=== PATIENT | female | born 1965 | race Caucasian/White ===

== ENCOUNTER 2023-03-08 16:17 | Outpatient (CLI) | payer OTHER, SELFPAY ==
--- NOTE | ~2023-03-08 | MR_ITS ---
EXAMINATION: MR brain/brain stem wo con DATE: 03/08/2023 16:48 INDICATION: Unspecified headaches. TECHNIQUE: Magnetic resonance imaging (MRI) of the brain and brainstem was performed without intraven ous contrast. COMPARISON: None. FINDINGS: There are scattered areas of nonspecific increased T2-weighted signal intensity in the cere bral white matter, deep garcia nuclei, and jesica. There is no intracranial hemorrhage, acute infarction, or abnormal intracranial mass lesion. The ventricles are normal in size. The paranasal sinuses are c lear. The orbits are normal. The mastoid air cells are normal. IMPRESSION: 1. Moderate nonspecific cerebral white matter disease and disease of the deep garcia nuclei and jesica, w hich likely represents chronic small vessel ischemic disease. Reviewed, dictated and finalized at location A. IMPRESSION: 1. Moderate nonspecific cerebral white matter disease and disease of the deep g ray nuclei and jesica, which likely represents chronic small vessel ischemic dise ase.
== END 2023-03-08 16:18 | disposition home or self-care (01) ==
PROVIDERS: PCP Nurse Practitioner Family; Visit Provider Nurse Practitioner Family
DX: R51.9 Headache, unspecified (principal); R93.0 Abnormal findings on diagnostic imaging of skull and head, not elsewhere classified
CPT/HCPCS: 70551

== ENCOUNTER 2023-04-12 08:45 | Outpatient (CLI) | payer OTHER, SELFPAY | END 2023-04-12 08:46 | disposition home or self-care (01) | LOC: ANHAUDIO 08:46 | PROVIDERS: PCP Nurse Practitioner Family; Visit Provider Otolaryngology | DX: S06.0XAA Concussion with loss of consciousness status unknown, initial encounter (principal); X58.XXXA Exposure to other specified factors, initial encounter; H90.3 Sensorineural hearing loss, bilateral | CPT/HCPCS: 92557; 92567 ==

== ENCOUNTER 2023-08-02 11:59 | Outpatient (CLI) | payer OTHER, SELFPAY ==
--- NOTE | ~2023-08-02 | XR_ITS ---
EXAMINATION: XR lumbar spine 2-3V DATE: 08/02/2023 12:20 INDICATION: Low back pain, unspecified. TECHNIQUE: 3 views of lumbar spine were obtained. COMPARISON: None. FINDINGS: There is 3 degrees levocurvature of lumbar spine. Vertebral body heights are normal. There is mildly decreased disc height at L4-L5. There are endplate osteophytes at multiple levels. There is multilevel mild facet joint osteoarthritis. IMPRESSION: 1. Mild lumbar spondylosis. Reviewed, dictated and finalized at location E. IMPRESSION: 1. Mild lumbar spondylosis.
== END 2023-08-02 12:00 | disposition home or self-care (01) ==
PROVIDERS: PCP Nurse Practitioner Family; Visit Provider Family Medicine
DX: M47.896 Other spondylosis, lumbar region (principal)
CPT/HCPCS: 72100

== ENCOUNTER 2024-03-28 13:28 | Emergency (ER) | payer OTHER, SELFPAY ==
--- NOTE | ~2024-03-28 | CT_ITS ---
CT brain wo con Ordering provider: Katarina Nguyen PA-C History: 59 years Female with . confusion . Comparison: None. Technique: CT of the head without contrast. Radiation reduction technique utilized. FINDINGS: BRAIN PARENCHYMA AND CSF SPACES: No midline shift, mass effect or hemorrhage. The brain parenchyma a nd CSF spaces are otherwise normal. VISUALIZED PARANASAL SINUSES: Well aerated. MASTOIDS: Well aerated. BONES: The bones appear intact. SOFT TISSUES: Visualized nasopharynx is normal. Superficial soft tissues are normal. IMPRESSION: No acute intracranial findings. Reviewed, dictated and finalized at location A.
[2024-03-28 13:33] VITALS: BP 153/81; PULSE 95; RESP 17; TEMP 36.5; O2SAT 95
[2024-03-28 13:40] LABS: Glucose Point of Care 289 mg/dl (65-105)
[2024-03-28 13:47] LABS: Basophils Absolute Auto 0.1 K/mm3 (0.0-0.1); Basophils Percent Auto 0.5 % (0.2-1.2); Eosinophils Absolute Auto 0.1 K/mm3 (0-0.3); Eosinophils Percent Auto 1.1 % (0-4.4); Hematocrit 45.1 % (37.0-47.0); Hemoglobin 15.5 g/dL (12.0-15.0); Immature Granulocyte Absolute 0.02 K/mm3 (0.00-0.031); Immature Granulocyte Percent A 0.2 % (0-0.5); Lymphocytes Absolute Auto 2.65 K/mm3 (0.9-3.2); Lymphocytes Percent Auto 28.7 % (18.3-44.2); Mean Corpuscular HGB Conc 34.4 g/dl (32-36); Mean Corpuscular Hemoglobin 31.8 pg (26-34); Mean Corpuscular Volume 92.4 fl (80-100); Monocytes Absolute Auto 0.8 K/mm3 (0.1-0.6); Monocytes Percent Auto 9.1 % (2.6-8.5); Neutrophils Absolute Auto 5.6 K/mm3 (1.3-6.7); Neutrophils Percent Auto 60.4 % (45.5-73.1); Platelet Count Result 213 k/mm3 (150-375); Red Blood Count 4.88 M/mm3 (4.2-5.4); Red Cell Distribution Width 11.8 % (11.5-14.5); White Blood Count 9.2 K/mm3 (4.5-10.0)
[2024-03-28 14:13] LABS: Beta-Hydroxybutyrate/Acetoacetate 0.08 mmol/L (0.02-0.27)
[2024-03-28 14:27] LABS: Alanine Aminotransferase 48 U/L (6-35); Albumin Level 4.5 g/dL (3.5-5.1); Alkaline Phosphatase 120 U/L (38-126); Anion Gap 6 mmol/L (4-12); Aspartate Amino Transferase 46 U/L (14-36); Bilirubin,Total 0.7 mg/dL (0.2-1.3); Blood Urea Nitrogen 10 mg/dL (7-17); Calcium 9.5 mg/dL (8.4-10.2); Carbon Dioxide 25 mmol/L (22-30); Chloride 106 mmol/L (98-107); Estimated CRCL calculation 90 ml/min; Estimated Glomerular Filt Rate > 60; Glucose 287 mg/dL (65-110); Magnesium 1.8 mg/dL (1.6-2.3); Phosphorus 3.6 mg/dL (2.5-4.5); Sodium 137 mmol/L (137-145)
[2024-03-28] MEDS: SODIUM CHLORIDE 0.9% IV 1,000 ML 999 ML IV CONT (14:35)
--- NOTE | 2024-03-28 14:35 | ED.RECABL ---
HPI - Recheck/Abnormal Lab/Rx General Chief Complaint: Recheck/Abnormal Lab/Rx Stated Complaint: hyperglycemia Time Seen by Provider: 03/28/24 13:52 Source: patient Mode of arrival: ambulatory Limitations: no limitations History of Present Illness HPI narrative: This is a 59 year old female that presents to the ER for elevated blood sugars. Ongoing over the last 10 days. Reports one of her diabetic medication was stopped and she also had a GI bug last week. Her blood sugars have been as high as in the 400s. Was sent in for evaluation by her PCP. Reports she feels a little confused, which she believes is from her blood sugar being elevated. Denies fever, cough, shortness of breath, abdominal pain or dysuria. Related Data Home Medications Medication Instructions Recorded Confirmed atorvastatin 20 mg tablet 20 mg PO DAILY 03/25/23 duloxetine 60 mg capsule,delayed 60 mg PO DAILY 03/25/23 release fluoxetine 20 mg capsule 20 mg PO DAILY 03/25/23 glimepiride 2 mg tablet 2 mg PO BID 03/25/23 oxybutynin chloride 5 mg tablet 5 mg PO BID 03/25/23 propranolol 40 mg tablet 40 mg PO Q12H 03/25/23 topiramate 25 mg tablet (Topamax) 25 mg PO DAILY 03/25/23 Allergies Allergy/AdvReac Type Severity Reaction Status Date / Time morphine Allergy Unknown Headache Verified 03/28/24 13:37 Sulfa (Sulfonamide Allergy Unknown Anaphylaxis Verified 03/28/24 13:37 Antibiotics) fentanyl AdvReac Severe Anaphylaxis Verified 03/28/24 13:37 Review of Systems Review of Systems: CONSTITUTIONAL: Denies fever CARDIOVASCULAR: Denies chest pain RESPIRATORY: Denies dyspnea. GASTROINTESTINAL: Denies abdominal pain GENITOURINARY: Denies dysuria All systems reviewed & are unremarkable except as noted in HPI and below PMFSH Past Medical History Medical History (Updated 03/28/24 @ 15:38 by Katarina Nguyen PA-C) Anxiety Fall Hyperlipidemia Migraine Seizures Family History Family History (Updated 03/25/23 @ 09:18 by Judy Sterling [facility]) Sibling Alcoholism Asthma Cancer Family history of diabetes mellitus in first degree relative Depression Cerebrovascular accident Father Family history of diabetes mellitus in first degree relative Alcoholism Depression Mother Family history of lung disease Alcoholism Asthma Depression Son Depression Daughter Depression Social History Social History (Updated 03/25/23 @ 09:03 by MINDI Freeman Smoking status: Never smoker Alcohol intake: never Substance use: current Substance use type: marijuana Exam Narrative: GENERAL: Well-appearing, well-nourished, and in no acute distress. HEAD: Normocephalic, atraumatic. EYES: PERRLA and EOMI. ENT: Nares clear, no rhinorrhea or epistaxis. Mucous membranes moist. Oropharynx without tonsillar hypertrophy exudate or other lesions. Bilateral TMs pearly garcia non-bulging NECK: Supple. No adenopathy or masses. CHEST: Clear to auscultation. No respiratory distress. No wheezes rales or rhonchi HEART: Regular rate and rhythm. No murmur heard. Normal peripheral pulses. ABDOMEN: Soft, nontender, nondistended, normal active bowel sounds. EXTREMITIES: Normal range of motion. No edema. SKIN: Warm, dry, no rash. NEURO: No focal deficits. Alert and oriented x3. CN II-XII grossly intact PSYCH: Normal mood and affect Course Course Emergency Course: Patient updated on her workup and agrees with plan of care Consultations Consultation #1: spoke with patient's PCP about workup who will follow-up in clinic Date: 03/28/24 Vital Signs Vital signs: Vital Signs Temperature 97.7 F 03/28/24 13:33 Pulse Rate 95 03/28/24 13:33 Respiratory Rate 17 03/28/24 13:33 Blood Pressure 153/81 H 03/28/24 13:33 Pulse Oximetry 95 03/28/24 13:33 Oxygen Delivery Room Air 03/28/24 13:33 Temperature 97.7 F 03/28/24 13:33 Pulse Rate 82 03/28/24 15:32 Respiratory Rate 20 03/28/24 15:32 Blood Pressure 169/8
[2024-03-28 14:53] LABS: Appearance Urine Clear (Clear); Bilirubin Urine Negative (Negative); Blood Urine Negative (Negative); Color Urine Yellow (Yellow); Glucose Urine UA 3+ mg/dL (Negative); Ketones Urine Negative (Negative); Leukocyte Esterase Ur Negative LEU/UL (Negative); Nitrate Urine Negative (Negative); Protein Urine Negative (Negative)
[2024-03-28 15:00] LABS: Add Urine Microscopic? NO
[2024-03-28 15:32] VITALS: BP 169/89; PULSE 82; RESP 20; O2SAT 98
== END 2024-03-28 15:47 | disposition home or self-care (01) ==
PROVIDERS: Emergency Medicine; Emergency Provider Physician Assistant; PCP Emergency Medicine
DX: E11.65 Type 2 diabetes mellitus with hyperglycemia (principal); F41.9 Anxiety disorder, unspecified; E78.5 Hyperlipidemia, unspecified; Z79.84 Long term (current) use of oral hypoglycemic drugs; Z79.899 Other long term (current) drug therapy
CPT/HCPCS: 36415; 70450; 80053; 81003; 82010; 82948; 83735; 84100; 85025; 96360; 99284; J7030

== ENCOUNTER 2025-04-03 07:23 | Outpatient (CLI) | payer OTHER, SELFPAY ==
--- OUTSIDE RECORDS SUMMARY | 2025-04-03 07:28 | XMS_ITS | Clinical Summary ---
Author Organization [facility] Address [address], [address] [address] Phone Care Team Providers Care Director [employer] Name Role Phone Aaron Hopkins DO Unavailable [phone] Jenaro Kevin MD Primary Care Provider [phone] Medications polyethylene glycol (MIRALAX) Powder Use entire 255g bottle with 64oz of clear liquid as directed for colonoscopy prep. 255 g 0 6 Active Social History Tobacco Use Types Packs/Day Years Used Date Smoking Tobacco: Never Assessed Comments Unknown Sex and Gender Information Value Date Recorded Sex Assigned at Not on file Legal Sex Female 4:44 PM [employer] Gender Identity Not on file Sexual Orientation Not on file Plan of Treatment Health Maintenance Due Date Last Done Comments Hepatitis C Virus (HCV) Screening 1965 TdaP Immunization 1965 Hepatitis B Immunization (1 of 3 - 19+ 3-dose series) 1984 Pap Smear 1986 Cervical Cancer Screening (CCS) 1995 HPV/Cotest 1995 Colonoscopy 2010 Colorectal Cancer Screening 2010 Cologuard 2015 Immunochemical Fecal Occult Blood 2015 Mammogram 2015 Pneumococcal Immunization (5 0+ years) (1 of 1 - PCV) 2015 Zoster Immunization (1 of 2) 2015 Influenza Immunization (#1) 2024 SARS-COV-2 Immunization ( - 2023- season) 2024 Respiratory Syncytial Virus (RSV) Immunization (Adult) (1 - 1-dose 75+ series) 2040 Meningococcal Immunization (ACWY) Aged Out No longer eligible based on patient's age to complete this topic Pneumococcal Immunization Combined Aged Out No longer eligible based on patient's age to complete this topic Rotavirus Immunization Aged Out No lo nger eligible based on patient's age to complete this topic Care Teams Director [employer]iconductor Relationship Specialty Start Date End Date Jenaro Kevin MD [address] [place] [address] PCP - General Internal Medicine 07/23/16 Aaron Hopkins DO Gastroenterology 07/23/16
--- OUTSIDE RECORDS SUMMARY | 2025-04-03 07:28 | XMS_ITS | Continuity of Care Document ---
Author Organization [facility] Address [address] [place] [address] [place] [address] Phone Care Team Providers Care Software Writer Name Role Phone Taco Gavin MD Unavailable Unavailable Allergies, Adverse Reactions, Alerts Substance Reaction Status Criticality fentanyl Orthostatic hypotension(severe) Active No Information Medications Medication Instructions Dosage Effective Dates (start - stop) Status Comments Xanax 0.5 mg tablet take 1 tablet by oral route every day as needed 0.5 MG - Active PRN for anxiety, avoid driving or operate machines hydrocodone 7.5 mg-acetaminophen 325 mg tablet take 1 tablet by oral route every day as needed for pain as needed 1 tablet - Active PRN for pain, avoid driving or operate machines ofloxacin 0.3 % ear drops instill 10 drop by otic route every day into affected ear(s) 1.5 MG - Active use for 7days albuterol sulfate HFA 90 mcg/actuation aerosol inhaler inhale 1 puff by inhalation route every 4 - 6 hours as needed as needed 1 puff - Active PRN for sob Lantus Solostar U-100 Insulin 100 unit/mL (3 mL) subcutaneous pen inject by subcutaneous route as per insulin protocol 0.00 - Active 70 units SC daily glimepiride 4 mg tablet take 1 tablet by oral route 2 times every day 4 MG - Active Januvia 100 mg tablet take 1 tablet by oral route every day 100 MG - Active metformin 500 mg tablet take 1 tablet by oral route 2 times every day with morning and evening meals 500 MG - Active oxybutynin chloride ER 10 mg tablet,extended release 24 hr take 1 tablet by oral route every day 10 MG - Active Cymbalta 60 mg capsule,delayed release take 1 capsule by oral route every day 60 MG - Active Toprol XL 25 mg tablet,extended release take 1 tablet by oral route every day 25 MG - Active lisinopril 5 mg tablet take 1 tablet by oral route every day 5 MG - Active rosuvastatin 20 mg tablet take 1 tablet by oral route every day 20 MG - Active Pen Needle 29 gauge x 1/2 use with lantus pen daily - Active Procedures Procedure Date OFFICE/OUTPATIENT VISIT, EST OFFICE/OUTPATIENT VISIT, EST OFFICE/OUTPATIENT VISIT, EST OFFICE/OUTPATIENT VISIT, EST OFFICE/OUTPATIENT VISIT, EST OFFICE/OUTPATIENT VISIT, EST OFFICE/OUTPATIENT VISIT, EST OFFICE/OUTPATIENT VISIT, EST OFFICE/OUTPATIENT VISIT, EST OFFICE/OUTPATIENT VISIT, EST OFFICE/OUTPATIENT VISIT, EST OFFICE/OUTPATIENT VISIT, EST OFFICE/OUTPATIENT VISIT, EST OFFICE/OUTPATIENT VISIT, EST OFFICE/OUTPATIENT VISIT, EST OFFICE/OUTPATIENT VISIT, EST OFFICE/OUTPATIENT VISIT, EST OFFICE/OUTPATIENT VISIT, EST OFFICE/OUTPATIENT VISIT, EST Advance Directives Directive Yes / No Effective Date File Name No Information Encounters Encounter Description Practice Location Reason(s) For Visit Diagnoses Date Provider Providers Copied on Encounter OFFICE/OUTPA TIENT VISIT, EST [facility], [facility] [address] [place], [id number], tel:[phone] [facility] pain (chief complaint) anxiety1 (chief complaint) aortic stenosis1 (chief complaint) ear pain1 (chief complaint) FibromyalgiaGeneral ized Anxiety DisorderNonrheumati c aortic (valve) stenosisDiffuse otitis externa, right ear [place]- 5 Romaine España. [address], [place], [place], [address] , [place]. tel:[phone] OFFICE/OUTPA TIENT VISIT, [facility], [address], [place], [place], [address], [place] tel:[phone] [facility] pain (chief complaint) anxiety1 (chief complaint) sob1 (chief complaint) DM (chief complaint) Nonrheumatic aortic (valve) stenosisGeneralized Anxiety DisorderType 2 diabetes mellitus without complicationsFibrom yalgia February- 5 Romaine España. [address], [place], [place], [address] , [place]. tel:[phone] OFFICE/OUTPA TIENT VISIT, [facility], [address], [place], [place], [address], [place] tel:[phone] [facility] DM (chief complaint) anxiety1 (chief complaint) pain (chief complaint) sob (chief complaint) FibromyalgiaGeneral ized Anxiety DisorderType 2 diabetes mellitus without complicationsShortn ess of breathCardiac murmurMixed incontinence Jan-0 5 Romaine Gudino [address], [place], [place], [address] , [place]. tel:[phone] OFFICE/OUTPA TIENT VISIT, [facility], [address] [place], [address], [place] tel:[phone] [facility] DM (chief complaint) HLP (chief complaint) LFT (chief complaint) HH (chief complaint) Type 2 diabetes mellitus without complicationsFibrom yalgiaGeneralized Anxiety DisorderMixed hyperlipidemiaHashi pradeep's thyroiditisFatty liverSecondary polycythemia Dec- 5 Romaine España. [address], [place], [place], [address] , [place]. tel:[phone] OFFICE/OUTPA TIENT VISIT, [facility], [address], [place], [place], [address], [place] tel:[phone] [facility] anxiety1 (chief complaint) pain (chief complaint) OAB (chief complaint) DM (chief complaint) weight loss1 (chief complaint) Type 2 diabetes mellitus without complicationsFibrom yalgiaOveractive bladderGeneralized Anxiety DisorderAbnormal weight loss 5 Romaine España. [address], [place], [place], [address] , [place]. tel:[phone] OFFICE/OUTPA TIENT VISIT, [facility], [address], [place], [place], [address], [place] tel:[phone] [facility] COVID1 (chief complaint) Viral infection 5 Romaine España. [address], [place], [place], [address] , [place]. tel:[phone] OFFICE/OUTPA TIENT VISIT, [facility], [address], [place], [place], [address], [place] tel:[phone] [facility] anxiety1 (chief complaint) pain (chief complaint) DM (chief complaint) FibromyalgiaGeneral ized Anxiety DisorderType 2 [address] complicationsEncoun ter for oth screening for malignant neoplasm of breast 5 Romaine España. [address], [place], [place], [address] , [place]. tel:[phone] OFFICE/OUTPA TIENT VISIT, [facility], [address], [place], [place], [address], [place] tel:[phone] [facility] anxiety1 (chief complaint) DM (chief complaint) pain (chief complaint) OAB (chief complaint) Generalized Anxiety DisorderOveractive bladderFibromyalgia Type 2 diabetes mellitus without complications 4 Romaine España. [address], [place], [place], [address] , [place]. tel:[phone] OFFICE/OUTPA TIENT VISIT, [facility], [address], [place], [place], [address], [place] tel:[phone] [facility] anxiety1 (chief complaint) pain (chief complaint) dyspnea1 (chief complaint) Generalized Anxiety DisorderFibromyalgi aDyspneaChest pain 4 Gavin Taco. [address], [place], [place], [address] , [place]. tel:[phone] OFFICE/OUTPA TIENT VISIT, [facility], [address], [place], [place], [address], [place] tel:[phone] [facility] anxiety1 (chief complaint) fibromyalg ia1 (chief complaint) FibromyalgiaGeneral ized Anxiety Disorder 4 Gavin Taco. [address], [place], [place], [address] , [place]. tel:[phone] OFFICE/OUTPA TIENT VISIT, [facility], [address] [place], [address], tel:[phone] [facility] anxiety1 (chief complaint) pain (chief complaint) OAB1 (chief complaint) chest pain1 (chief complaint) DM (chief complaint) DyspneaChest painOveractive bladderGeneralized Anxiety DisorderFibromyalgi aType 2 diabetes mellitus without complications 4 Gavin Taco. [address], [place], [place], [address] , [place]. tel:[phone] OFFICE/OUTPA TIENT VISIT, [facility], [address] [place], [address], [place] tel:[phone] [facility] pain (chief complaint) anxiety1 (chief complaint) DM (chief complaint) FibromyalgiaGeneral ized Anxiety DisorderType 2 diabetes mellitus without complicationsCardia c murmurOther specified disorder of bone density 4 Gavin Taco. [address], [place], [place], [address] , [place]. tel:[phone] OFFICE/OUTPA TIENT VISIT, [facility], [address] [place], [address], [place] tel:[phone] [facility] DM (chief complaint) HTN (chief complaint) HLP (chief complaint) pain (chief complaint) anxiety1 (chief complaint) Generalized Anxiety DisorderFibromyalgi aEssential (primary) hypertensionType 2 diabetes mellitus without complicationsMixed hyperlipidemiaHashi pradeep's thyroiditis 4 Romaine España. [address], [place], [place], [address] , [place]. tel:[phone] [facility], [address], [place], [place], [address], [place] tel:[phone] [facility] No Information 4 Romaine España. [address], [place], [place], [address] , [place]. tel:[phone] OFFICE/OUTPA TIENT VISIT, [facility], [address], [place], [place], [address], [place] tel:[phone] [facility] pain (chief complaint) anxiety1 (chief complaint) DM (chief complaint) HTN (chief complaint) Type 2 diabetes mellitus without complicationsEssent ial (primary) hypertensionFibromy algiaGeneralized Anxiety DisorderEncounter for screening for malignant neoplasm of colon 4 Romaine España. [address], [place], [place], [address] , [place]. tel:[phone] OFFICE/OUTPA TIENT VISIT, [facility], [address], [place], [place], [address], [place] tel:[phone] [facility] DM (chief complaint) HLP (chief complaint) liver1 (chief complaint) polycythem ia1 (chief complaint) Fatty liverMixed hyperlipidemiaType 2 diabetes mellitus without complicationsSecond marcia polycythemiaHypothy roidism 4 Romaine España. [address], [place], [place], [address] , [place]. tel:[phone] OFFICE/OUTPA TIENT VISIT, [facility], [address], [place], [place], [address], [place] tel:[phone] [facility] DM (chief complaint) HLP (chief complaint) thyroid1 (chief complaint) pain (chief complaint) anxiety1 (chief complaint) FibromyalgiaMixed hyperlipidemiaType 2 diabetes mellitus without complicationsHypoth yroidismGeneralized Anxiety DisorderLiver diseaseOther specified disorder of bone density 4 Romaine España. [address], [place], [place], [address] , [place]. tel:[phone] OFFICE/OUTPA TIENT VISIT, EST [facility], [address], [place], [address], [place] tel:[phone] [facility] DM (chief complaint) HLP (chief complaint) back pain1 (chief complaint) FibromyalgiaMixed hyperlipidemiaType 2 diabetes mellitus without complications 4 Romaine España. [address], [place], [place], [address] , [place]. tel:[phone] OFFICE/OUTPA TIENT VISIT, EST [facility], [address], [place], [address], [place] tel:[phone] [facility] liver1 (chief complaint) HLP (chief complaint) thyroid1 (chief complaint) DM (chief complaint) back pain1 (chief complaint) Fatty liverMixed hyperlipidemiaType 2 diabetes mellitus without complicationsHypoth yroidismFibromyalgi a 4 Romaine España. [address], [place], [place], [address] , [place]. tel:[phone] OFFICE/OUTPA TIENT VISIT, EST [facility], [address] [place], [address], [place] tel:[phone] [facility] HLP (chief complaint) DM (chief complaint) OAB (chief complaint) anxiety1 (chief complaint) fibromyalg ia1 (chief complaint) FibromyalgiaMixed hyperlipidemiaType 2 diabetes mellitus without complicationsGenera lized Anxiety DisorderOveractive bladder 4 Romaine España. [address], [place], [place], [address] , [place]. tel:[phone] Family History Family Member Type Diagnosis Age At Onset Father Problem of fire accident Mother Problem Coronary artery disease (Cau se Of ) 75 Brother Problem of neck and throat [place] 6 4 Sister Problem Stroke (Cause Of ) 64 Payers Payer name Insurance type Covered libertarian ID Jordi alberts(s) [facility] [id number] Social History Type Description Quantity Date Captured Comments Alcohol Use Details Caffeine Use Details Unknown Tobacco Use Status Current non-smoker Smoking Status Never smoker Sex Female Vital Signs Date / Time: Height Weight BMI Pulse Rate Blood Pressure Temperature Respiratory Rate Body Surface Area Head Circumference BMI percentile Pulse Ox Inhaled Ox 4:29 PM 61.00 in 190.40 lbs 35.9 8 kg/m eter (2) 81 /min 110/70 mm[Hg] 97.9 F 16 /min Chief Complaint And Reason For Visit From encounter dated '03/21/2025 16:26'. pain (chief complaint). Description: Pt has chronic low back pain with sciatica and some upper leg numbness and tingling Pt had x ray done which showed DDD. Pt also has fibromyalgia. Pt takes norco PRN for pain Pt failed neurontin and lyrica. Pt is on cymbalta which helps anxiety1 (chief complaint). Description: Pt has chronic anxiety and depression Pt takes cymbalta and xanax PRn and doing ok Pt denies any suicidal or homicidal thought. Pt denies any crying spells aortic stenosis1 (chief complaint). Description: Pt has severe aortic stenosis with frequent sob orfatigue. Pt has loud murmur Pt feels very exhausted all the time ear pain1 (chief complaint). Description: Pt has right ear pain for several days Pt denies any hearing loss or drainage. Pt denies any sinus symptoms Plan Of Treatment Date Type Action Status Referral Ordered: Cardiothoracic Surgery (related to Nonrheumatic aortic (valve) stenosis) ordered Referral Ordered: Referrals: Cardiothoracic Surgery. Evaluate and treat ordered Referral Referred To: Margarito Retana [address] [place] [address], [phone] Ordered: Referrals: Margarito Retana. Evaluate and treat ordered Referral Ordered: Kannan Mace -[facility] : Internal Medicine (related to Type 2 diabetes mellitus without complications) ordered Referral Referred To: Kannan Mace [address] [place], [phone] Ordered: Referrals: [facility]opathic [facility] Osteopathic Physicians : Internal Medicine. Kannan Mace. Evaluate and treat ordered Referral Ordered: US THYROID ordered Referral Ordered: MAMMOGRAM, SCREENING ordered Referral Ordered: Urology (related to Overactive bladder) ordered Referral Ordered: MANUEL ZELAYA -[facility] : Internal Medicine : Pulmonary Disease (related to Dyspnea) ordered Referral Ordered: Referrals: Urology. Evaluate and treat ordered Referral Referred To: MANUEL ZELAYA [facility] [address] [place], [place], [phone] Ordered: Referrals: Allopathic & Osteopathic Physicians : Internal Medicine : Pulmonary Disease. MANUEL ZELAYA. Evaluate and treat ordered Referral Ordered: DXA BONE DENSITY, AXIAL ordered Appointment Paris Cardenas BOOKED History Of Present Illness Encounter Date Complaint History Of Prese nt Illness pain Pt has chronic l ow back pain with sciatica and some upper leg numbness and tingling Pt had x ray done which showed DDD. Pt also has fibromyalgia. Pt takes norco PRN for pain Pt failed neurontin and lyrica. Pt is on cymbalta which helps anxiety1 Pt has chronic a nxiety and depression Pt takes cymbalta and xanax PRn and doing ok Pt denies any suicidal or homicidal thought. Pt denies any crying spells aortic stenosis1 Pt has severe a ortic stenosis with frequent sob or fatigue. Pt has loud murmur Pt feels very exhausted all the time ear pain1 Pt has right ear pain for several days Pt denies any hearing loss or drainage. Pt denies any sinus symptoms pain Pt has chronic l ow back pain with sciatica and some upper leg numbness and tingling Pt had x ray done which showed DDD. Pt also has fibromyalgia. Pt takes norco PRN for pain Pt failed neurontin and lyrica. Pt is on cymbalta which helps anxiety1 Pt has chronic a nxiety and depression Pt takes cymbalta and xanax PRn and doing ok Pt denies any suicidal or homicidal thought. Pt denies any crying spells sob1 Pt has frequent sob. Pt is seeing pulmonary and she had negative PFT. She will do asthma testing by pulmonary Pt also has dorian with Dr. retana in two weeks. Pt denies any chest pain Pt denies any acute sob Pt uses albuterol PRn Pt has severe aortic stenosis DM Pt has DM Pt is on metformin, januvia and amaryl and lantus 70 units and her glucose is still DM Pt has DM Pt is on metformin, januvia and amaryl and lantus 50 units and her glucose is still around 250-300. Pt feels fatigue. Pt states that endo could not get her in until June anxiety1 Pt has chronic a nxiety and depression Pt takes cymbalta and xanax PRn and doing ok Pt denies any suicidal or homicidal thought. Pt denies any crying spells pain Pt has chronic l ow back pain with sciatica and some upper leg numbness and tingling Pt had x ray done which showed DDD. Pt also has fibromyalgia. Pt takes norco PRN for pain Pt failed neurontin and lyrica. Pt is on cymbalta which helps sob Pt c/o intermitt ent sob Pt denies any chest pain Pt is seeing pulmonary and she supposes to do PFT but she never did. Pt could not get into her pulmonary until June. Pt is seeing cardiology and she has chronic cardiac murmur. Pt had negative stress test and echo and her cardiology repeated another echo recently which showed some abnormality and she supposes to do cardiac cath but her cardiology no longer takes her insurance Pt denies any chest pain DM pt has DM Pt griffin es metformin, januvia and amaryl and lantus 40 units and her glucose is still over 200 and her A1c is 12.9 .Pt states that sometimes her glucose is over 400. HLP Pt is on crestor Pt has mildly high TG LFT Pt has fatty hima er. Pt denies any abd pain or jaundice. HH Pt has polycythe sanna .Her iron is ok. OAB Pt has oAB Pt is on oxybutynin and doing ok Pt needs it refilled DM Pt has DM Pt is on lantus 40 units and her glucose is down to 110s. weight loss1 Pt has been inte ntionally losing weight with diet and exercise. Pt maría any Gi issue anxiety1 Pt has chronic a nxiety and depression Pt takes cymbalta and xanax PRn and doing ok Pt denies any suicidal or homicidal thought. Pt denies any crying spells pain Pt has chronic l ow back pain with sciatica and some upper leg numbness and tingling Pt had x ray done which showed DDD. Pt also has fibromyalgia. Pt takes norco PRN for pain Pt failed neurontin and lyrica. Pt is on cymbalta which helps COVID1 Pt c/o acute dry cough, sinus congestion, mild sob, overall fatigue, myalgia x 3 days .Pt went to ER last night and tested positive for COVID Pt had negative chest x ray per patient while at ER Pt denies any fever pt overall feels very malaise Pt received original COVID vaccine but no boosters anxiety1 Pt has chronic a nxiety and depression Pt takes cymbalta and xanax PRn and doing ok Pt denies any suicidal or homicidal thought. Pt denies any crying spells DM Pt has DM Pt griffin es metformin, januvia and amaryl and lantus and her glucose is down to 200. Pt is on lantus 30 units now. Pt feels better pain Pt has chronic l ow back pain with sciatica and some upper leg numbness and tingling Pt had x ray done which showed DDD. Pt also has fibromyalgia. Pt takes norco PRN for pain Pt failed neurontin and lyrica. Pt is on cymbalta which helps OAB pt has OAB with incontinence .Pt is on oxybutynin Pt needs supply order and she has dorian with urology in October pain Pt has chronic l ow back pain with sciatica and some upper leg numbness and tingling Pt had x ray done which showed DDD. Pt also has fibromyalgia. Pt takes norco PRN for pain Pt failed neurontin and lyrica. Pt is on cymbalta which helps DM Pt has DM pt is on metformin, januvia and amaryl and lantus. Pt has been under a lot of stress and her glucose is on average around 400 for the past two weeks. pt feels slightly dizzy and fatigue anxiety1 Pt has chronic a nxiety and depression Pt takes cymbalta and xanax PRn and doing ok Pt denies any suicidal or homicidal thought. Pt denies any crying spells anxiety1 Pt has chronic a nxiety and depression Pt takes cymbalta and xanax PRn and doing ok Pt denies any suicidal or homicidal thought. Pt denies any crying spells pain Pt has chronic l ow back pain with sciatica and some upper leg numbness and tingling Pt had x ray done which showed DDD. Pt also has fibromyalgia. Pt takes norco PRN for pain Pt failed neurontin and lyrica. Pt states that her pain is getting worse dyspnea1 Pt has mild exer tional dyspnea and chest pain .Pt had negative stress test and echo and she will do cardiac cath soon and she also has dorian with pulmonary tomorrow Pt denies any acute sob or chest pain anxiety1 Pt has chronic a nxiety and depression Pt takes cymbalta and xanax PRn and doing ok Pt denies any suicidal or homicidal thought. Pt denies any crying spells fibromyalgia1 Pt has fibromyal daniela .Pt is on norco higher dose which is helping Pt also started cymbalta which is helping as well DM Pt has DM Pt griffin es lantus, metformin amaryl, Januvia and her glucose is around 120s. chest pain1 Pt has frequent chest pain and sob. Pt is seeing cardiology and she had negative echo and she will do stress test soon Pt is on toprol now hot tam[employer] worker recommended her to see pulmonary ,Pt does feel exertional sob frequently. Pt denies any cough OAB1 Pt has OAB and u rine incontinence Pt is on oxybutynin Pt wants to see urology. pain Pt has chronic l ow back pain with sciatica and some upper leg numbness and tingling Pt had x ray done which showed DDD. Pt also has fibromyalgia. Pt takes norco PRN for pain Pt failed neurontin and lyrica. Pt states that her pain is getting worse anxiety1 Pt has chronic a nxiety Pt feels depressed lately Pt denies any suicidal or homicidal thought .Pt denies any crying spells. Pt takes xanax only pain Pt has chronic l ow back pain with sciatica and some upper leg numbness and tingling Pt had x ray done which showed DDD. Pt also has fibromyalgia. Pt takes norco PRN for pain Pt failed neurontin and lyrica. anxiety1 Pt has chronic a nxiety Pt denies any depression or any suicidal or homicidal thought Pt denies any crying spells Pt takes xanax PRN only. Pt failed SSRIs Pt recently went to ER due to panic attacks with chest pain Pt states that she just had a panic attacks and she calmed down and chest pain resolved and she left hospital AMA Pt denies any recurrent chest pain DM Pt has DM. Pt is on lantus 15 units daily and her glucose is around 100. Pt denies any hypoglycemia HLP Pt has HLP Pt is on crestor .Her TG is high. Pt denies any myalgia HTN Pt takes lisinop ril and her bp is stable DM Pt has DM. Pt is on metformin, amaryl and Januvia and she started lantus 10 units and her glucose is down to 200 pain Pt has chronic l ow back pain with sciatica and some upper leg numbness and tingling Pt had x ray done which showed DDD. Pt also has fibromyalgia. Pt takes norco PRN for pain Pt failed neurontin and lyrica. anxiety1 Pt has chronic a nxiety Pt denies any depression or any suicidal or homicidal thought Pt denies any crying spells Pt takes xanax PRN only. Pt failed SSRIs HTN Pt has mild HTN Pt denies any chest pain or headache pain Pt has chronic l ow back pain with sciatica and some upper leg numbness and tingling Pt had x ray done which showed DDD. Pt also has fibromyalgia. Pt takes norco PRN for pain Pt failed neurontin and lyrica. anxiety1 Pt has chronic a nxiety Pt denies any depression or any suicidal or homicidal thought Pt denies any crying spells Pt takes xanax PRN only. Pt failed SSRIs DM Pt has DM, which is poorly controlled Pt is on metformin, januvia and amaryl her A1c is 9.4 and her glucose was close to 400 recently. Pt was evaluated in ER 3 days ago and her glucose was 287 without any signs of DKA. Her head CT was normal. Pt did have mild Gi viral symptoms and was vomiting which resolved now. Pt denies any abd pain. She could not tolerate trulicity due to diarrhea. She currently feels ok. Pt denies any confusion, headache, vision change, polyuria ,polydipsia. HLP Pt has HLP ,Pt i s on crestor .Pt denies any myalgia. her TC improved but TG is worse. Pt is not on any DM diet polycythemia1 Pt has mild poly cythemia. Her iron and ferritin is pending DM Pt has poorly co ntrolled DM. She takes metformin, januvia and amaryl and her glucose was over 400 on lab and she states that she is having some acute nausea, vomiting, diarrhea and she has been vomiting out her DM pills and her glucose has been around 400 as well at home during the last several days Pt feels slight headache with dizziness and blurred vision. Pt denies any chest pain. liver1 Pt told me she h as fatty liver Pt denies any abd pain or jaundice. anxiety1 Pt has chronic a nxiety Pt denies any depression or any suicidal or homicidal thought Pt denies any crying spells Pt takes xanax PRN only pain Pt has chronic l ow back pain with sciatica and some upper leg numbness and tingling Pt had x ray done which showed DDD. Pt also has fibromyalgia. Pt takes norco PRN for pain Pt failed neurontin and lyrica. thyroid1 Pt has low thyro id Pt denies any dysphagia or neck pain . HLP Pt has HLP Pt zach davis Pt denies any myalgia DM Pt has DM pt griffin es metformin, januvia and amaryl ad her glucose is around 250s. Pt denies any polyuria polydipsia. Pt has been having persist diarrhea with trulicity. back pain1 Pt has chronic l ow back pain with sciatica and some upper leg numbness and tingling Pt had x ray done which showed DDD Pt never had MRI done Pt told me she had CT of L spine done early this year at [facility] but i can not find it. Pt could not order picker norco last month for unknown reason from pharmacy. Pt also has fibromyalgia HLP Pt has not picke d up crestor yet. It needs to be approved which is done. Pt will order picker crestor today DM Pt is on metform in, amaryl and januvia and her glucose is still high. Pt states that trulicity caused her to have severe diarrhea. Pt states that her glucose is around 180s. Pt denies any polyuria, polydipsia. back pain1 Pt has chronic l ow back pain with sciatica and some upper leg numbness and tingling Pt had MRi done which showed DDD Pt takes norco PRn for pain . liver1 Pt has elevated LFT .Pt told me she has diagnosis of fatty liver. Pt denies any abd pain or jaundice. HLP Pt is on lipitor and her lipid profile is still high Pt denies any myalgia thyroid1 Pt has mildly lo w thyroid Pt denies any dysphagia or neck pain DM Pt is on metform in, januvia and amaryl and her A1c is 9.3.. She states that her glucose is around 200-250. Pt denies any neuropathy symptoms HLP Pt has HLP Pt ta kes lipitor Pt denies any myalgia. DM Pt has DM Pt griffin es metformin and januvia and amaryl and her glucose is around 200. Pt denies any hypoglycemia. Pt denies any polyuria, polydipsia. OAB Pt has OAB Pt ta kes oxybutynin and doing ok. anxiety1 Pt has chronic a nxiety Pt denies any depression or any suicidal or homicidal thought Pt denies any crying spells Pt takes xanax 0.5 mg PRN. fibromyalgia Pt has fibromyal daniela and she has chronic low back and hip and leg pain and neuropathy. Pt takes norco PRN for pain. Pt failed neurontin and lyrica. Pt denies any loss of bowel or bladder control or saddle area paresthesia Instructions Date Instruction Additional Infor erasmo No Information Assessments Type Assessment Date assessment Fibromyalgia assessment Generalized Anxiety Disorder Mar assessment Nonrheumatic aortic (valve) sten osis assessment Diffuse otitis externa, right ea r Mental Status Date Cognitive Assessment Orientation - [place] ed to time, place, person, situation.
--- OUTSIDE RECORDS SUMMARY | 2025-04-03 07:29 | XMS_ITS | Data Portability ---
Author Organization [place] - [facility], Main Office Address [address] [place] [address] Assessment Encounter Date Assessment Date Assessment LastModified by Organization Details LastModified Time 08/24/2024 08/24/2024 Assessment: Cough Dyspnea Severe Plan: The following were reviewed and explained to the patient: primary care/referral note Myocardial perfusion test 07/31/24 EF 55%, no ischemia Limited 2-D echocardiogram 08/02/24 severe Cough/Dyspnea workup will be done as follows: Respiratory allergen panel for [facility] Serum IgE Serum total IgG, IgG1, IgG2, IgG3, IgG4 Stmya-3-tledugzcjt n phenotype and level TB stimulated gamma interferon B-type natriuretic peptide (BNP) Eosinophil count Complete pulmonary function testing (PFT) Advised to continue not to smoke. Adherence to therapy is advocated. Nonadherence may lead to treatment failure, further progression of the condition, and other complications. Hospitals admissions are often the result of individuals not taking prescription medications accurately. Alternatively, greater adherence to medication regimens have shown to lower rates of hospitalization and decrease total medical costs in patients with chronic medical conditions. Advocated influenza vaccination annually and pneumonia vaccination MARCE. Advocated weight loss through diet and exercise. Patient's ideal body weight according to height and gender is up to 115 lbs. Encouraged patient to adjust caloric intake to maintain/achieve ideal body weight, emphasizing on fruits, vegetables, whole grains, and fat-free or low-fat products. These include lean meats, poultry, fish, beans, eggs, and nuts and foods that are low in saturated fats, trans-fats, cholesterol, salt (sodium), and glycemic index. Stressed the importance of regular exercise up to the patient's capacity limits. In this case, we recommend 20 min daily walking, 2 days a week of resistance training. Patient to monitor BP daily and bring records to PCP for further management. Follow-up: 1 week after PFT Not available 08/24/2024 14:01:24 02/14/2025 02/14/2025 Assessment: Cough Dyspnea Severe Plan: The following were reviewed and explained to the patient: Myocardial perfusion test 07/31/24 EF 55%, no ischemia Limited 2-D echocardiogram 08/02/24 severe Lab data 08/31/24 PFT 02/12/25 nl FEV1/FVC, FEV1 1.96 L (89%), BD 140 mL = 8%, TLC 4.28 L (100%), RV 1.69 L (106%), DLCO 72%, DLCO/VA 116% Cough/Dyspnea workup will be done as follows: Methacholine challenge testing Advised to continue not to smoke. Adherence to therapy is advocated. Nonadherence may lead to treatment failure, further progression of the condition, and other complications. Hospitals admissions are often the result of individuals not taking prescription medications accurately. Alternatively, greater adherence to medication regimens have shown to lower rates of hospitalization and decrease total medical costs in patients with chronic medical conditions. Advocated influenza vaccination annually and pneumonia vaccination MARCE. Advocated weight loss through diet and exercise. Patient's ideal body weight according to height and gender is up to 115 lbs. Encouraged patient to adjust caloric intake to maintain/achieve ideal body weight, emphasizing on fruits, vegetables, whole grains, and fat-free or low-fat products. These include lean meats, poultry, fish, beans, eggs, and nuts and foods that are low in saturated fats, trans-fats, cholesterol, salt (sodium), and glycemic index. Stressed the importance of regular exercise up to the patient's capacity limits. In this case, we recommend 20 min daily walking, 2 days a week of resistance training. Patient to monitor BP daily and bring records to PCP for further management. Follow-up: 1 week after methacholine challenge testing [email or web address] Not available 02/14/2025 09:38:20 Plan of Treatment Reminders Order Date Submit Date Provider Last Modified By Organization Details Last Modified Time Details Appointments None recorded. Lab alpha-1-ant itrypsin (aat) phenotype, serum 2023 024 [email or web address] 82 [facility] (Lab), [address] [place], [address], 4 12:25:51 BNP (B-type natriuretic peptide), serum or plasma 2023 BAHMAN [facility] (Lab), [address] [place], [address], 4 14:14:24 ige, total, serum [address] (Lab), [address] [place], [address], 4 12:25:51 tb (M tuberculosi s), ifn-gamma mary beth, blood [address] (Lab), [address] [place], [address], 4 12:25:52 eosinophil count, manual, blood (OBS) [address] (Lab), [address] [place], [address], 4 12:25:52 igg subclasses 1+2+3+4, serum [address] (Lab), [address] [place], [address], 4 12:25:52 respiratory allergen panel, [facility] A, serum [email or web address] [place] [address] (Lab), [address] [place], [address], 4 12:25:52 respiratory allergen panel - [facility] b 2023 024 [email or web address] [address] [place] [address] (Lab), [address] [place], [address], 4 12:25:52 vitamin D, 25-hydroxy, total, serum 2023 024 [facility]36 Not available 4 11:55:39 lipid panel, serum 2023 024 [facility] Not available 4 11:54:42 hepatic function panel, serum 2023 024 [place] [address] Not available 4 11:54:56 CBC w/ auto diff 2023 024 [place] [address] Not available 4 11:55:09 HbA1c (hemoglobin A1c), blood 2023 024 [email or web address] Not available 4 15:23:49 BMP, serum or plasma 2023 024 [place] [address] Not available 4 11:52:29 TSH, serum or plasma 2023 024 [place] [address] Not available 4 11:55:24 Referral physical therapist referral - *Please call pt to schedule* 2022 [email or web address] [place] [address] [facility], [address] [place], [address], 4 09:04:04 Procedures None recorded. Surgeries None recorded. Imaging None recorded. Medication Orders hydrocodone 5 mg-acetamin ophen 325 mg tablet [email or web address] [facility] [place], [address], 4 14:11:44 alprazolam 0.5 mg tablet 2023 024 [facility], [address] [place], [address], 4 09:48:18 hydrocodone 5 mg-acetamin ophen 325 mg tablet 2022 023 [facility], [facility], [place], [address], 14:11:44 Patient TargetsNo targets recorded. Patient Instructions Encounter Date Encounter Id Patient Instructions Last Modified By Organization Details Last Modified Time 08/24/2024 [id number] complete PFT w/ post bronchodilator spirometry* - Please call patient to schedule. NPAN [id number] per [employer] website. Not available 09/26/2024 08:47:05 02/14/2025 [id number] methacholine challenge* - Please call patient to schedule. NPAN [id number] per payor website. [email or web address] Not available 03/20/2025 14:54:01 Reason for Referral Physical Therapist Referral for Low back pain *Please call pt to schedule* Referring Physician: Peri Taylor, Family Medicine, Encounter Date: 09/20/2023 Results Created Date Observation Date Name Description Value Unit Range Abnormal Flag Note LastModifiedBy Organization Detail LastModifiedTime 11/24/19 24 11/24/2023 CBC/C OMPLE TE BLD COUNT W/DIF F white blood cells 6.9 x10'3 /uL 4.2-10 .8 Not Available [facility] (Lab) [address] [place], [address], 11/24/2023 20:09:23 11/24/19 24 11/24/2023 CBC/C OMPLE TE BLD COUNT W/DIF F red blood cells 4.90 x10'6 /uL 3.80-5 .20 Not Available [facility] (Lab) [address] [place], [address], 11/24/2023 20:09:23 11/24/19 24 11/24/2023 CBC/C OMPLE TE BLD COUNT W/DIF F hemoglobin 15.6 g/dL 12.0-1 5.6 Not Available [facility] (Lab) [address] [place], [address], 11/24/2023 20:09:23 11/24/19 24 11/24/2023 CBC/C OMPLE TE BLD COUNT W/DIF F hematocrit 46.0 % 35.7-4 5.7 high Not Available [facility] (Lab) [address] [place], [address], 11/24/2023 20:09:23 11/24/19 24 11/24/2023 CBC/C OMPLE TE BLD COUNT W/DIF F mean red cell volume 93.9 fL 82.0-9 9.0 Not Available [facility] (Lab) [address] [place], [address], 11/24/2023 20:09:23 11/24/19 24 11/24/2023 CBC/C OMPLE TE BLD COUNT W/DIF F mean red cell hemoglobin 31.8 pg 27.0-3 3.0 Not Available [facility] (Lab) [address] [place], [address], 11/24/2023 20:09:23 11/24/19 24 11/24/2023 CBC/C OMPLE TE BLD COUNT W/DIF F mean RBC HGB concentratio n 33.9 g/dL 31.0-3 6.0 Not Available [facility] (Lab) [address] [place], [address], 11/24/2023 20:09:23 11/24/19 24 11/24/2023 CBC/C OMPLE TE BLD COUNT W/DIF F red cell distribution width 11.6 % 11.8-1 5.5 low Not Available [facility] (Lab) [address] [place], [address], 11/24/2023 20:09:23 11/24/19 24 11/24/2023 CBC/C OMPLE TE BLD COUNT W/DIF F platelets 217 x10'3 /uL 150-40 0 Not Available [facility] (Lab) [address] [place], [address], 11/24/2023 20:09:23 11/24/19 24 11/24/2023 CBC/C OMPLE TE BLD COUNT W/DIF F mean platelet volume 10.1 fL 9.0-12 .4 Not Available [facility] (Lab) [address] [place], [address], 11/24/2023 20:09:23 11/24/19 24 11/24/2023 CBC/C OMPLE TE BLD COUNT W/DIF F neutrophils 56.5 % 39.0-7 2.0 Not Available [facility] (Lab) [address] [place], [address], 11/24/2023 20:09:23 11/24/19 24 11/24/2023 CBC/C OMPLE TE BLD COUNT W/DIF F lymphocytes 32.7 % 16.0-4 7.0 Not Available [facility] (Lab) [address] [place], [address], 11/24/2023 20:09:23 11/24/19 24 11/24/2023 CBC/C OMPLE TE BLD COUNT W/DIF F monocytes 8.3 % 5.0-12 .0 Not Available [facility] (Lab) [address] [place], [address], 11/24/2023 20:09:23 11/24/19 24 11/24/2023 CBC/C OMPLE TE BLD COUNT W/DIF F eosinophils 1.5 % 1.0-7. 0 Not Available [facility] (Lab) [address] [place], [address], 11/24/2023 20:09:23 11/24/19 24 11/24/2023 CBC/C OMPLE TE BLD COUNT W/DIF F basophils 0.6 % 0.0-2. 0 Not Available [facility] (Lab) [address] [place], [address], 11/24/2023 20:09:23 11/24/19 24 11/24/2023 CBC/C OMPLE TE BLD COUNT W/DIF F immature granulocytes 0.4 % 0.00-0 .50 Not Available [facility] (Lab) [address] [place], [address], 11/24/2023 20:09:23 11/24/19 24 11/24/2023 CBC/C OMPLE TE BLD COUNT W/DIF F neutrophils, absolute count 3.89 x10'3 /uL 1.5-8. 0 Not Available [facility] (Lab) [address] [place], [address], 11/24/2023 20:09:23 11/24/19 24 11/24/2023 CBC/C OMPLE TE BLD COUNT W/DIF F lymphocytes, absolute count 2.25 x10'3 /uL 1.07-3 .43 Not Available [facility] (Lab) [address] [place], [address], 11/24/2023 20:09:23 11/24/19 24 11/24/2023 CBC/C OMPLE TE BLD COUNT W/DIF F monocytes, absolute count 0.57 x10'3 /uL 0.29-0 .99 Not Available [facility] (Lab) [address] [place], [address], 11/24/2023 20:09:23 11/24/19 24 11/24/2023 CBC/C OMPLE TE BLD COUNT W/DIF F eosinophils, absolute count 0.10 x10'3 /uL 0.02-0 .53 Not Available [facility] (Lab) [address] [place], [address], 11/24/2023 20:09:23 11/24/19 24 11/24/2023 CBC/C OMPLE TE BLD COUNT W/DIF F basophils, absolute count 0.04 x10'3 /uL 0.01-0 .08 Not Available [facility] (Lab) [address] [place], [address], 11/24/2023 20:09:23 11/24/19 24 11/24/2023 CBC/C OMPLE TE BLD COUNT W/DIF F immature granulocytes ,absolute 0.03 x10'3 /uL 0.00-0 .05 Not Available [facility] (Lab) [address] [place], [address], 11/24/2023 20:09:23 11/24/19 24 11/24/2023 CBC/C OMPLE TE BLD COUNT W/DIF F nucleated red blood cells 0.0 % -0 Not Available [facility] (Lab) [address] [place], [address], 11/24/2023 20:09:23 11/24/19 24 11/24/2023 CBC/C OMPLE TE BLD COUNT W/DIF F NRBC# 0.00 x10'3 /uL Not Available [facility] (Lab) [address] [place], [address], 11/24/2023 20:09:23 11/24/19 24 11/24/2023 VITAM IN D 25-HY DROXY vd25oh 28.4 NG/mL 30-100 low Vitam in D Statu s: Defic ient: <20 ng/mL Insuf ficie nt: 20-29 ng/mL Suffi cient : 30-10 0 ng/mL Not Available [facility] (Lab) [address] [place], [address], 11/24/2023 20:51:13 11/24/19 24 11/24/2023 BASIC METAB OLIC PANEL sodium 137 mmol/ L 137-14 5 Not Available [facility] (Lab) [address] [place], [address], 11/24/2023 20:54:42 11/24/19 24 11/24/2023 BASIC METAB OLIC PANEL potassium 4.0 mmol/ L 3.5-5. 1 Not Available [facility] (Lab) [address] [place], [address], 11/24/2023 20:54:42 11/24/19 24 11/24/2023 BASIC METAB OLIC PANEL chloride 100 mmol/ L 98-107 Not Available [facility] (Lab) [address] [place], [address], 11/24/2023 20:54:42 11/24/19 24 11/24/2023 BASIC METAB OLIC PANEL carbon dioxide 33 mmol/ L 22-30 high Not Available [facility] (Lab) [address] [place], [address], 11/24/2023 20:54:42 11/24/19 24 11/24/2023 BASIC METAB OLIC PANEL anion gap 8.0 mmol/ L 14-22 low Not Available [facility] (Lab) [address] [place], [address], 11/24/2023 20:54:42 11/24/19 24 11/24/2023 BASIC METAB OLIC PANEL glucose 313 mg/dL 70-99 high Not Available [facility] (Lab) [address] [place], [address], 11/24/2023 20:54:42 11/24/19 24 11/24/2023 BASIC METAB OLIC PANEL BUN 9 mg/dL 8-19 Not Available [facility] (Lab) [address] [place], [address], 11/24/2023 20:54:42 11/24/19 24 11/24/2023 BASIC METAB OLIC PANEL creatinine 0.73 mg/dL 0.66-1 .25 Not Available [facility] (Lab) [address] [place], [address], 11/24/2023 20:54:42 11/24/19 24 11/24/2023 BASIC METAB OLIC PANEL GFR >60 Refer ence Range : [place] ge GFR Healt hy Adult : >60 mL/mi n/1.7 3 m2 Chron ic Kidne y Disea se: 15-60 mL/mi n/1.7 3 m2 Kidne y Failu re: <15/m L/min /1.73 m2 www.n iddk. nih.g ov The MDRD study equat ion has not been valid ated in child ana <18 years of age; pregn ant women ; the elder ly >85 years of age; or in some racia l or ethni c subgr oups, such as Hispa nics. Outsi de the valid ated emily eters , estim ated GFR is less accur ate, requi ring clini lilliana judgm ent on a case- by-ca se basis . Clini lilliana inter preta tion for other races and ages must be made by the clini jade. The MDRD study equat ion has not been valid ated for the evalu ation of serum creat inine relat ed to nutri heri l statu s or medic ation usage . For perso ns <18 years of age, a pedia tric GFR calcu lator is avail able on the [facility] websi te: https ://susie gan.sammy bob.o rg/pr ofess ional s/kdo qi/gf r_cal culat or Not Available [facility] (Lab) [address] [place], [address], 11/24/2023 20:54:42 11/24/19 24 11/24/2023 BASIC METAB OLIC PANEL calcium 9.8 mg/dL 8.4-10 .2 Not Available [facility] (Lab) [address] [place], [address], 11/24/2023 20:54:42 11/24/19 24 11/24/2023 LIPID PANEL cholesterol 236 mg/dL 140-19 9 high NIH KIMBERLEY NSUS RECOM MENDA TION FOR KILEY STERO L: ADULT CHILD LOW RISK: <200 <170 BORDE RLINE : <200- 239 ----- HIGH RISK: >240 >200 Not Available [facility] (Lab) [address] [place], [address], 11/24/2023 20:54:47 11/24/19 24 11/24/2023 LIPID PANEL triglyceride s 265 mg/dL 0-150 high NIH KIMBERLEY NSUS REPOR T RECOM MENDA TION FOR TRIGL YCERI YUE: ADULT CHILD LOW RISK: <150 ----- BODER LINE: 150-1 99 ----- HIGH RISK: >200 ----- Not Available [facility] (Lab) [address] [place], [address], 11/24/2023 20:54:47 11/24/19 24 11/24/2023 LIPID PANEL HDL cholesterol 55 mg/dL 40- Not Available [facility] (Lab) [address] [place], [address], 11/24/2023 20:54:47 11/24/19 24 11/24/2023 LIPID PANEL LDL cholesterol, calculated 128 mg/dL 0-130 NIH KIMBERLEY NSUS REPOR T RECOM MENDA TIONS FOR LDL: ADULT CHILD LOW RISK <130 <110 (OPTI MAL LDL) <100 ----- BORDE RLINE : 130-1 59 ----- HIGH RISK: >160 >130 A TRIGL YCERI DE RESUL T >400 INVAL IDATE S THE CALCU LATIO N FOR LDL FRACT IONAT ION - THE LDL RESUL T WILL NOT BE REPOR FUNMILAYO. Not Available [facility] (Lab) [address] [place], [address], 11/24/2023 20:54:47 11/24/19 24 11/24/2023 HEPAT IC/LI ADILENE PANEL alkaline phosphatase 113 U/L 38-126 Not Available [facility] (Lab) [address] [place], [address], 11/24/2023 20:54:48 11/24/19 24 11/24/2023 HEPAT IC/LI ADILENE PANEL alanine aminotransfe rase 69 U/L 0-35 high Not Available [facility] (Lab) [address] [place], [address], 11/24/2023 20:54:48 11/24/19 24 11/24/2023 HEPAT IC/LI ADILENE PANEL aspartate aminotransfe rase 72 U/L 15-37 high Not Available [facility] (Lab) [address] [place], [address], 11/24/2023 20:54:48 11/24/19 24 11/24/2023 HEPAT IC/LI ADILENE PANEL bilirubin, total 0.80 mg/dL 0.20-1 .30 Not Available [facility] (Lab) [address] [place], [address], 11/24/2023 20:54:48 11/24/19 24 11/24/2023 HEPAT IC/LI ADILENE PANEL bilirubin, conjugated (direct) 0.00 mg/dL 0.00-0 .30 Not Available [facility] (Lab) [address] [place], [address], 11/24/2023 20:54:48 11/24/19 24 11/24/2023 HEPAT IC/LI ADILENE PANEL biliurubin,u ncong. (indirect) 0.40 mg/dL 0.00-1 .1 Not Available [facility] (Lab) [address] [place], [address], 11/24/2023 20:54:48 11/24/19 24 11/24/2023 HEPAT IC/LI ADILENE PANEL total protein 7.2 g/dL 6.3-8. 2 Not Available [facility] (Lab) [address] [place], [address], 11/24/2023 20:54:48 11/24/19 24 11/24/2023 HEPAT IC/LI ADILENE PANEL albumin 4.0 g/dL 3.4-5. 0 Not Available [facility] (Lab) [address] [place], [address], 11/24/2023 20:54:48 11/24/19 24 11/24/2023 HEPAT IC/LI ADILENE PANEL globulin 3.2 g/dL 2.6-4. 2 Not Available [facility] (Lab) [address] [place], [address], 11/24/2023 20:54:48 11/24/19 24 11/24/2023 HEPAT IC/LI ADILENE PANEL A/G ratio 1.3 ratio 1.0-2. 0 Not Available [facility] (Lab) [address] [place], [address], 11/24/2023 20:54:48 11/24/19 24 11/24/2023 TSH thyroid-stim ulating hormone 5.840 uIU/m L 0.465- 4.680 high Not Available [facility] (Lab) [address] [place], [address], 11/24/2023 20:55:12 11/24/19 24 11/24/2023 HEMOG LOBIN A1C HA1C 9.3 % 4.0-6. 0 high Diabe diandra Scree lucía Crite gigi: <5.7% Consi stent with absen ce of diabe diandra 5.7-6 .4% Consi stent with incre ased risk for diabe diandra (pred iabet es) >OR=6 .5% Consi stent with diabe diandra REFER ENCE: Diabe diandra Care 2016, 39(Javier ppl.1 ):s13 -s22 Not Available [facility] (Lab) [address] [place], [address], 11/24/2023 21:49:51 08/02/20 23 08/02/2023 XR, lumba r spine No observ ation record ed. [email or web address] Scott [address], [place], [address], 08/04/2023 17:42:41 08/23/20 23 08/23/2023 MAMMO , scree lucía, digit al, bilat eral [facility] [address] [facility] [place] [address] Patien t Name: TRUMAN TOPETE Access ion #: [id number] Sex: F : 1964 3 Dictat ed By: Brittany Devi Attend ing Physic bee: BRYON LYNN Orderi ng Physic bee: BRYON LYNN Exam Date: 2022 06:48 AM Exam Name: MARYLiliya BREAST ADALI BILAT Admitt ing Diagno sis(es ): SCREEN ING MAMMOG KAREN WITH TOMOSY NTHESI S: REASON FOR EXAM: screen ing mammog karen COMPAR TANESHA: 21 TECHNI QUE: Bilate ral CC and MLO views obtain ed. Images were obtain ed using a Digita l Tomosy nthesi s Unit. Standa rd 2D and 3D Tomosy nthesi s images were review ed. FINDIN GS: BREAST COMPOS ITION: There are scatte red areas of fibrog landul ar densit y in the bilate ral breast s. In the right breast , no asymme trical parenc hymal patter n, mikey ectura l distor tion, pleomo rphic microc alcifi cation s or masses . In the left breast , no asymme trical parenc hymal patter n, mikey ectura l distor tion, pleomo rphic microc alcifi cation s or masses . IMPRES AMARJIT: No findin gs of malign scott. Recomm end annual mammog karen. BIRADS : 2 - Benign Electr onical ly Signed by: Brittany Devi at 2022 10:10: 32 AM Page 1 [email or web address] ([facility] Sched[facility]) [address] [place], [address], 09/20/2023 08:16:44 08/25/2008/02/2024 US, echoc ardio gram, trans thora cic, compl ete No observ ation record ed. BARCODE Not Available 2023 10:35:52 08/25/20 24 07/31/2024 NM, myoca rdial perfu amarjit scan No observ ation record ed. BARCODE Not Available 2023 10:35:53 02/14/20 25 02/12/2025 compl ete PFT w/ [facility] hodil ator davin metry * No observ ation record ed. BARCODE [facility] ([facility] Sched[facility]) [address] [place], [address], 02/13/2025 09:44:26 Result Notes Documentation Provider Name and Address Organization Details Recorded Time Mammo, Screening, Digital, Bilateral : [facility] [address] [place] [address] Patient Name: TRUMAN TOPETE Sex: F : 1965 Dictated By: Brittany Devi Attending Physician: PERI TAYLOR Ordering Physician: PERI TAYLOR Exam Date: 08/23/2023 06:48 AM Exam Name: MG AGUILAR BREAST ADALI BILAT Admitting Diagnosis(es): SCREENING MAMMOGRAM WITH TOMOSYNTHESIS: REASON FOR EXAM: screening mammogram COMPARISON:07/01/2021 TECHNIQUE: Bilateral CC and MLO views obtained. Images were obtained using a Digital Tomosynthesis Unit. Standard 2D and 3D Tomosynthesis images were reviewed. FINDINGS: BREAST COMPOSITION: There are scattered areas of fibroglandular density in the bilateral breasts. In the right breast, no asymmetrical parenchymal pattern, architectural distortion, pleomorphic microcalcifications or masses. In the left breast, no asymmetrical parenchymal pattern, architectural distortion, pleomorphic microcalcifications or masses. IMPRESSION: No findings of malignancy. Recommend annual mammogram. BIRADS: 2 - Benign Page 1 Peri Taylor MD [address], [address], [facility] 09/20/2023 08:16:44 Problems Name Problem SNOMED Code Status Onset Date Resolution Date Notes Provider Name and Address Organization Details Recorded Time Hyperglycem ia due to type 2 diabetes mellitus 6277867126327 09 Active 2022 ARAM Kessler [address], [address], [place], [address], [facility] 3 10:15:24 Urinary incontinenc e 004910440 Active 2022 ARAM Kessler [address], [address], [place], [address], [facility] 3 10:16:00 Obesity 264199163 Active 2022 ARAM Kessler [address], [address], [place], [address], [facility] 3 10:23:41 Fibromyalgi a 769260888 Active 2022 ARAM Kessler [address], [address], [place], [address], [facility] 3 10:32:01 Hyperlipide sanna 77939398 Active 2022 ARAM Kessler [address], [address], [place], [address], [facility] 3 09:45:03 Non-alcohol ic fatty liver 007070175 Active 2022 ARAM Kessler [address], [place], [address], [facility] 3 09:46:46 Hearing loss 37540563 Active 2022 ARAM Kessler [address], [address], [place], [address], [facility] 3 12:50:21 Anxiety disorder 166450787 Active 2022 ARAM Kessler [address], [facility] [address], [place], [address], [employer] 3 10:51:52 Vitamin D deficiency 17126134 Active 2023 Peri Taylor MD [address] [facility], [facility] [address], [place], [address], [employer] 4 09:43:35 Dyspnea on exertion 68227121 Active 2024 Andrzej Fritz MD [address] [facility], [facility] [address], [place], [address], [employer] 5 09:13:48 Notes:Medical History: Marij uana use Anxiety/Depression Bilateral hearing loss Rhinitis IgE 12 IU/mL Eosinophils 70/uL Obesity Hypertension Mixed hyperlipidemia T2DM Severe Atrial fibrillation NAFLD Urge urinary incontinence Vit D insufficiency Lumbar spondylosis Fibromyalgia Procedure History: [facility] Occupational History: [employer] Problem Notes None recorded. Procedures Surgical History Date Name Laterality Status Provider Name and Address Organization Details Recorded Time Hysterectomy completed Tanja Vargas RN [facility] [employer] 01/28/2023 10:04:10 Imaging Results None recorded. Procedure Notes None recorded. Medical Equipment None Reported. Allergies Allergen ID Allergen Name Allergen Category Reaction Reaction Severity Criticality Documentation Date Start Date Code Code System Note Provider Name and Address Organization Details Recorded Time 59936 fentanyl medicatio n Not available Not available Not available 01/28/2023 4337 RxNorm Tanja Vargas RN [facility], [facility] [employer] 3 10:04:27 Medications Name Sig Start Date Stop Date Status Note LastModified by Organization Details LastModified Time cyclobenz aprine 10 mg tablet Take 1 tablet 3 times a day by oral route as needed. 08/09 completed Not Available Not Available Not Available amoxicill in 500 mg capsule 03/19 completed Not Available Not Available Not Available metformin 500 mg tablet TAKE 1 TABLET BY MOUTH TWICE DAILY WITH MORNING MEAL AND WITH EVENING MEAL active Not Available Not Available No t Available neomycin- polymyxin -hydrocor t 3.5 mg/mL-10, 000 unit/mL-1 % ear solution INSTILL 4 DROPS INTO AFFECTED EAR(S) BY OTIC ROUTE 3 TIMES PER DAY 05/14 completed Not Available Not Available Not Available venlafaxi ne ER 75 mg capsule,e xtended release 24 hr 05/14 completed Not Available Not Available Not Available atorvasta tin 20 mg tablet TAKE 1 TABLET BY MOUTH ONCE DAILY FOR 90 DAYS active Not Available Not Available No t Available clindamyc in HCl 300 mg capsule 05/14 completed Not Available Not Available Not Available oxybutyni n chloride ER 10 mg tablet,ex tended release 24 hr TAKE 1 TABLET BY MOUTH ONCE DAILY active Not Available Not Available No t Available pravastat in 40 mg tablet 01/28 completed Not Available Not Available Not Available ibuprofen 800 mg tablet TAKE 1 TABLET BY MOUTH EVERY 6 TO 8 HOURS WITH FOOD NEEDED FOR PAIN active Not Available Not Available No t Available fluconazo le 150 mg tablet TAKE 1 TABLET BY MOUTH EVERY 72 HOURS NEEDED FOR 9 DAYS 05/14 completed Not Available Not Available Not Available sumatript an 100 mg tablet 05/14 completed Not Available Not Available Not Available hydrocodo ne 5 mg-acetam inophen 325 mg tablet TAKE 1 TABLET BY MOUTH ONCE DAILY NEEDED 08/24 completed Not Available Not Available Not Available prednison e 20 mg tablet TAKE 2 TABLETS BY MOUTH TWICE DAILY DIRECTED FOR 2 DAYS, THEN TAKE 1 TABLET BY MOUTH TWICE DAILY ON DAYS 3-7, THEN TAKE 1/2 TABLET BY MOUTH TWICE DAILY ON DAYS 8-9, THEN TAKE 1/2 TABLET ON DAY 10 01/28 completed Not Available Not Available Not Available topiramat e 25 mg tablet TAKE 1 TABLET BY MOUTH EVERY 12 HOURS active Not Available Not Available No t Available potassium chloride ER 10 mEq tablet,ex tended release active Not Available Not Available Not Available metronida zole 500 mg tablet 08/24 completed Not Available Not Available Not Available ciproflox acin 500 mg tablet 05/14 completed Not Available Not Available Not Available tramadol 50 mg tablet TAKE 1 TABLET BY MOUTH EVERY 6 HOURS NEEDED 08/11 completed Not Available Not Available Not Available glimepiri de 2 mg tablet Take 1 tablet every 12 hours by oral route for 90 days. 05/21 completed Not Available Not Available Not Available lamotrigi ne 25 mg tablet 05/14 completed Not Available Not Available Not Available alprazola m 0.5 mg tablet TAKE 1 TABLET BY MOUTH ONCE DAILY NEEDED NEEDED FOR ANXIETY AVOID DRIVING OR OPERATIN G MACHINES active Not Available Not Available No t Available propranol ol 40 mg tablet TAKE 1 TABLET BY MOUTH TWICE DAILY NEEDED active Not Available Not Available No t Available alprazola m 0.25 mg tablet TAKE 1 TABLET BY MOUTH THREE TIMES DAILY NEEDED 08/24 completed Not Available Not Available Not Available levetirac etam 250 mg tablet 05/14 completed Not Available Not Available Not Available [employer] Ultra Test strips USE STRIP TO CHECK GLUCOSE ONCE DAILY DIRECTED 08/24 completed Not Available Not Available Not Available hydrocodo ne 7.5 mg-acetam inophen 325 mg tablet TAKE 1 TABLET BY MOUTH ONCE DAILY NEEDED FOR PAIN DRIVING OR OPERATIN G MACHINES active Not Available Not Available No t Available glimepiri de 4 mg tablet TAKE 1 TABLET BY MOUTH TWICE DAILY active Not Available Not Available No t Available fluoxetin e 10 mg capsule 01/28 completed Not Available Not Available Not Available gabapenti n 300 mg capsule 03/19 completed hallucin ations Not Available Not Available Not Available lisinopri l 5 mg tablet TAKE 1 TABLET BY MOUTH ONCE DAILY active Not Available Not Available No t Available furosemid e 20 mg tablet 05/14 completed Not Available Not Available Not Available metoprolo l succinate ER 25 mg tablet,ex tended release 24 hr TAKE 1 TABLET BY MOUTH ONCE DAILY active Not Available Not Available No t Available albuterol sulfate HFA 90 mcg/actua tion aerosol inhaler INHALE 1 PUFF BY MOUTH EVERY 4 TO 6 HOURS NEEDED FOR SHORTNES S OF BREATH active Not Available Not Available No t Available fluoxetin e 20 mg capsule TAKE 1 CAPSULE BY MOUTH ONCE DAILY IN THE MORNING FOR 30 DAYS 05/14 completed Not Available Not Available Not Available fluticaso ne propionat e 50 mcg/actua tion nasal spray,francy pension Midnight 1 spray every day by intranas al route. 08/24 completed Not Available Not Available Not Available naproxen 500 mg tablet 08/24 completed Not Available Not Available Not Available amoxicill in 875 mg-potass ium clavulana te 125 mg tablet 05/14 completed Not Available Not Available Not Available rosuvasta tin 10 mg tablet TAKE 1 TABLET BY MOUTH ONCE DAILY IN THE MORNING FOR 30 DAYS 01/28 completed Not Available Not Available Not Available rosuvasta tin 20 mg tablet TAKE 1 TABLET BY MOUTH ONCE DAILY active Not Available Not Available No t Available Alcohol Prep Pads USE DIRECTED 08/24 completed Not Available Not Available Not Available duloxetin e 30 mg capsule,d elayed release TAKE 1 CAPSULE BY MOUTH ONCE DAILY 08/24 completed Not Available Not Available Not Available duloxetin e 60 mg capsule,d elayed release TAKE 1 CAPSULE BY MOUTH ONCE DAILY active Not Available Not Available No t Available Januvia 100 mg tablet TAKE 1 TABLET BY MOUTH ONCE DAILY active Not Available Not Available No t Available Lantus Solostar U-100 Insulin 100 unit/mL (3 mL) subcutane ous pen INJECT SUB-Q DAILY PER INSULIN PROTOCOL UP TO 30U DAILY. active Not Available Not Available No t Available cholecalc iferol (vitamin D3) 50 mcg (2,000 unit) tablet TAKE 1 TABLET BY MOUTH ONCE DAILY WITH MEALS FOR 30 DAYS 05/14 completed Not Available Not Available Not Available Janumet XR 50 mg-1,000 mg tablet,ex tended release Take by oral route for 90 days. active Not Available Not Available No t Available Trulicity 0.75 mg/0.5 mL subcutane ous pen injector INJECT 1 SYRINGE SUBCUTAN EOUSLY ONCE A WEEK 02/14 completed Not Available Not Available Not Available duloxetin e 40 mg capsule,d elayed release Take 1 capsule twice a day by oral route for 30 days. 05/14 completed Not Available Not Available Not Available Narcan 4 mg/actuat ion nasal spray CALL 911. ADMINIST ER A SINGLE SPRAY INTRANAS ALLY INTO ONE NOSTRIL UPON SIGNS OF OPIOID OVERDOSE . MAY REPEAT AFTER 3 MINUTES IF NO RESPONSE . active Not Available Not Available No t Available Afluria 5818-1414 (PF) 45 mcg(15 mcg x 3)/0.5 mL intramusc ular syringe 05/14 completed Not Available Not Available Not Available TRUEplus Pen Needle 29 gauge x 1/2 USE WITH LANTUS PEN DAILY 08/24 completed Not Available Not Available Not Available Fluzone Quad 2017-(P F) 60 mcg(15 mcgx4)/0. 5 mL intramusc ular syringe 05/14 completed Not Available Not Available Not Available OneTouch Ultra2 Meter USE DIRECTED 08/24 completed Not Available Not Available Not Available OneTouch Delica Plus Lancet 33 gauge USE TO CHECK GLUCOSE ONCE DAILY DIRECTED 08/24 completed Not Available Not Available Not Available duloxetin e 60 mg capsule,d elayed release sprinkle active Not Available Not Available Not Available Tab-A-Vit e 400 mcg tablet TAKE 1 TABLET BY MOUTH ONCE DAILY 08/24 completed Not Available Not Available Not Available Vitals Date Recorded Systolic blood pressure Diastolic blood pressure Provider Name and Address Organization Details Last Updated DateTime 11/24/2023 140 mm[Hg] 78 mm[Hg] Peri Taylor MD [address], [place], [address], [facility] [employer] [facility] 11/24/2023 09:47:30 Date Recorded Body height Body mass index (BMI) Body weight Body temperature Heart rate Oxygen saturation Oxygen saturation in Arterial blood by Pulse oximetry Provider Name and Address Organization Details Last Updated DateTime 4 154.94 cm 40.4 kg/m2 30383.7 7 g 97.6 [degF] 93 /min 95 % 95 % Roger Sanchez RN [facility] [employer] [facility] 4 09:21:38 Date Recorded Heart rate Heart rate Respiratory rate Provider Name and Address Organization Details Last Updated DateTime 02/14/2025 87 /min 87 /min 14 /min Andrzej Fritz MD [address], [place], [address], [facility] [employer] [facility] 02/14/2025 09:40:30 Date Recorded Body height Body mass index (BMI) Body weight Body temperature Oxygen saturation Oxygen saturation in Arterial blood by Pulse oximetry Systolic blood pressure Diastolic blood pressure Provider Name and Address Organization Details Last Updated DateTime 5 154.94 cm 35.5 kg/m2 81739.3 7 g 97.6 [degF] 97 % 97 % 118 mm[Hg] 76 mm[Hg] Bia George MA [facility] [employer] [facility] 5 09:35:57 Date Recorded Body height Body mass index (BMI) Body weight Body temperature Heart rate Oxygen saturation Oxygen saturation in Arterial blood by Pulse oximetry Systolic blood pressure Diastolic blood pressure Provider Name and Address Organization Details Last Updated DateTime 3 154.94 cm 40.8 kg/m2 04252.9 5 g 98.7 [degF] 96 /min 98 % 98 % 154 mm[Hg] 86 mm[Hg] Roger Sanchez RN [facility] [employer] [facility] 3 09:03:24 Date Recorded Heart rate Respiratory rate Provider N dereje and Address Organization Details Last Updated DateTime 08/24/2024 77 /min 15 /min Andrzej Fritz MD [address] [place] [address], [address], [facility] [employer] [facility] 08/24/2024 13:57:05 Date Recorded Body height Body mass index (BMI) Body weight Body temperature Heart rate Oxygen saturation Oxygen saturation in Arterial blood by Pulse oximetry Systolic blood pressure Diastolic blood pressure Provider Name and Address Organization Details Last Updated DateTime 4 154.94 cm 37.2 kg/m2 35639.7 g 98.2 [degF] 77 /min 99 % 99 % 126 mm[Hg] 76 mm[Hg] Bia George MA [facility] [employer] [facility] 4 12:53:30 Date Recorded Body height Body mass index (BMI) Body weight Body temperature Heart rate Oxygen saturation Oxygen saturation in Arterial blood by Pulse oximetry Systolic blood pressure Diastolic blood pressure Provider Name and Address Organization Details Last Updated DateTime 3 154.94 cm 40.6 kg/m2 39276.3 6 g 97.5 [degF] 93 /min 95 % 95 % 140 mm[Hg] 78 mm[Hg] Roger Sanchez RN [facility] [employer] [facility] 3 08:09:43 Social History Question Answer Notes LastModified by Organizat ion Details LastModified Time Tobacco Smoking Status Never Smoker Tanja Vargas RN [facility], [facility] [employer] [facility] 01/28/2023 10:03:23 What Is Your Level Of Caffeine Consumption? Occasional Information not available 01/28/2023 In The 14 Days Before Symptom Onset, Have You Had Close Contact With A Laboratory-confirm ed COVID-19 While That Case Was Ill? No Information n ot available 08/24/2024 In The 14 Days Before Symptom Onset, Have You Had Close Contact With A Person Who Is Under Investigation For COVID-19 While That Person Was Ill? No Information not available 08/24/2024 What Type Of Diet Are You Following? DIABETIC Information n ot available 08/24/2024 Which Illicit Or Recreational Drugs Have You Used? Marijuana Information not available 01/28/2023 Do You Have An Electrostatic Air Filter? No Information not available 08/24/2024 Do You Have A Humidifier? No Information not available 08/24/2024 Do You Have Moisture Problems In Your Home? No Information not available 08/24/2024 What Was The Date Of Your Most Recent Tobacco Screening? 02/14/2025 Information not available 02/14/2025 Do You Have Any Pets? Yes Information not available 08/24/2024 Do You Use Your Seat Belt Or Car Seat Routinely? No Information not available 02/19/2023 Do You Have Smoke And Carbon Monoxide Detectors In Your Home? Yes Information not available 08/24/2024 Are You Passively Exposed To Smoke? No Information no t available 08/24/2024 Do You Participate In Social Media? No Information not available 02/19/2023 Do You Use Sunscreen Routinely? No Information not available 08/24/2024 Have You Recently Traveled Abroad? No Information not available 08/24/2024 Have You Used IV Drugs? No Information not available 01/28/2023 Do You Have Any Dietary Restrictions? No Information not available 08/24/2024 Sex: Unknown Functional Status Question Answer Note LastModified by Organizat ion Details LastModified Time Do you use any illicit or recreational drugs? Yes Information not available 01/28/2023 What is your level of alcohol consumption? Occasional Information not available 01/28/2023 Have you been exposed to chemicals or toxins? not that aware of Information not available 08/24/2024 What is your exercise level? Occasional Information not available 08/24/2024 Mental Status Question Answer Note LastModified by Organization D etails LastModified Time Do you feel stressed (tense, restless, nervous, or anxious, or unable to sleep at night)? [id number] Information not available 02/19/2023 Family History Relationship Description Onset Age of this Age Resolved Age Notes LastModified by Organization Details LastModified Time Sister Cerebrovascu lar accident Not available 11/2023 17:14:07 Sister Glaucoma Not available 10/24/2023 13:11:06 Sister Tinnitus Not available 10/24/2023 13:11:35 Sister Chronic obstructive pulmonary disease Not available 2023 13:11:43 Sister Obstructive sleep apnea syndrome Not available 2023 13:12:03 Sister Hypertensive disorder Not available 2023 13:12:13 Sister Hyperlipidem ia Not available 2023 13:12:25 Sister Diabetes mellitus Not available 2023 13:12:48 Sister Gastroesopha geal reflux disease Not available 2023 13:12:58 Sister Umbilical hernia Not available 2023 13:13:21 Sister Steatotic liver disease Not available 2023 13:13:31 Sister Urge incontinence of urine Not available 2023 13:13:59 Sister Peripheral vascular disease Not available 2023 13:14:08 Sister Low back pain Not available 2023 13:14:16 Sister Malignant tumor of breast Not available 2023 13:17:51 Mother Coronary arterioscler osis Not available 2023 17:14:18 Brother Migraine Not available 08/24/2024 13:18:25 Son Obstructive sleep apnea syndrome Not available 2023 13:19:01 Son Epilepsy Not available 1 10/24/2023 13:20:00 Son Migraine Not available 1 10/24/2023 13:20:06 Son Hearing loss Not availab le 08/24/2024 13:20:40 Son Hypertensive disorder Not available 2023 13:21:04 Son Benign prostatic hyperplasia Not available 04/2024 13:21:24 Son Vitamin D deficiency Not available 08/24 13:21:37 Son Autism spectrum disorder Not available 2023 13:21:53 Medical History No medical history recorded. Gynecological HistoryNo gynecological history recorded. Obstetrics History GPAL:G 0 P 0 0 0 0 Past Encounters Encounter ID Performer Location Encounter Start Date Encounter Closed Date Diagnosis/Indication Diagnosis SNOMED-CT Code Diagnosis ICD10 Code Diagnosis Note [id number] ARAM Kessler [facility] [address] [place] [facility] [address] [place] [address] 01/28/2023 09:52:48 01/28/2023 10:39:24 Hyperglycemia due to type 2 diabetes mellitus [id number] 35573 E11.65 Unknown statusLike ly poorly controlled based on pts blood sugar log.Discus sed need for regular exercise, increase intake of water/vege tables/fib er. Decrease intake of carbs, especially white rice/pasta /flour/donavon ad/sugar.A dvised to continue with metformin and glimepirid e pending lab results. Discussed with pt that GI sx with metformin are likely d/t poor diet. Urinary incontinence 165 664585 R32 ChronicKee p upcoming appt with urologist at [facility]. Headache 00258618 R51.9 Chronic, s/p fall several months ago.Right side of head, near crownPts head very tender to touch. Although pt believes pain d/t ear issues, this is unlikely to be the case since there is only a small amount of middle ear fluid visible and no sign of a middle ear infection. Headache prevention techniques reviewed. Importance of lifestyle measures reviewed including managing stress, good sleep hygiene, avoiding headache triggers. Ensure take daily preventati ve meds, avoid overuse of headache treatment meds.Will send for MRI head w/o contrast. Pt prefers [facility] for imaging Pain of ear 268298897 H9 2.09 RecurrentB ilateralMo d erythema bilat EACs.Head pain is likely to be cause of ear pain, not the other way around.Elton l refer to ENT for further evaluation /tx. Start ear gtts and nose spray in the meantime. Obesity 452187040 E66.9 Advised eat 3 meals daily with 1-2 healthy snacks, eliminate caloric drinks, no grazing btw meals, reduce packaged foods, portion control, modificati on of cooking style, low fat/low sugar items, 30 minutes of exercise at least 3x/week, reduce emotional/ stress eating, increase fruits/veg etables, take 15-20 minutes to eat. Thyroid di sorder screening 048725001 Z13.29 Fibromyalgia 927085823 M 79.7 Pt reports dx, no supporting documentat ion available. Will refer to Dr. Magda Willingham to be evaluated for possible medical marijuana. [id number] Peri Taylor MD [facility] Primary Care [address] [place] [address] 02/19/2023 09:26:17 02/19/2023 10:22:16 Hyperglycemia due to type 2 diabetes mellitus [id number] 44209 E11.65 LrsessuH5X 6.8 (01/28/23)S table with metformin and glimepirid e; however, pt c/o metformin causes her GI issues and dizziness. Discussed need for regular exercise, increase intake of water/vege tables/fib er. Decrease intake of carbs, especially white rice/pasta /flour/donavon ad/sugar.W ill discontinu e metformin d/t GI upset and dizziness. Will increase glimepirid e to 2mg BID. Hyperlipidemia 80440202 E78.5 New finding on labstotal 238, trigs 178, ldl 138 (01/28/23)D iscussed need for regular exercise, increase intake of water/vege tables/fib er. Decrease the amount of greasy/fat ty/fried foods in diet. Consider/s tart taking a daily fish oil supplement .Start atorvastat in 20mg daily per ADA guidelines Non-alcoho lic fatty liver 117395048 K76.0 Chronicalt 43/alt 51 (01/28/23)C ontinue to work on diet/exerc ise to prevent worsening. [id number] ARAM Kessler [facility] [address] [facility] [place] [facility] [address] [place] [address] 03/19/2023 10:17:48 03/19/2023 11:11:09 Pain of left shoulder joint [id number] 9905663 M25.512 New problemSta rt OTC NSAIDs. Ok to combine w/Tylenol. Try Biofreeze, ice, rest, and home stretching as discussed. Will update with XR results, consider MRI if appropriat e. Hyperglyce sanna due to type 2 diabetes mellitus [id number] 32644 E11.65 WqzzvmrJ3Y 6.8 (01/28/23)S table with metformin and glimepirid e; however, pt c/o metformin causes her GI issues and dizziness. Discussed need for regular exercise, increase intake of water/vege tables/fib er. Decrease intake of carbs, especially white rice/pasta /flour/donavon ad/sugar.D iscontinue d metformin d/t GI upset and dizziness. Continue glimepirid e 2mg BID. Headache 31239439 R51.9 Chronic, s/p fall several months ago.Right side of head, near crownPts head very tender to touch. Although pt believes pain d/t ear issues, this is unlikely to be the case since there was only a small amount of middle ear fluid visible and no sign of a middle ear infection. Headache prevention techniques reviewed. Importance of lifestyle measures reviewed including managing stress, good sleep hygiene, avoiding headache triggers. Ensure take daily preventati ve meds, avoid overuse of headache treatment meds.MRI Brain (03/08/23) indicates small vessel disease, no other pathology. Will start on topiramate 25mg BID Urinary incontinence 165 330216 R32 ChronicKee p upcoming appt with urologist at [facility].Continue oxybutynin 10mg daily Pain of ear 129898777 H9 2.09 RecurrentB ilateralHe ad pain is likely to be cause of ear pain, not the other way around.Ref erred to ENT for further evaluation /tx, continue ear gtts and nose spray in the meantime. Fibromyalgia 268766235 M 79.7 Pt reports dx, no supporting documentat ion available. Referred to Dr. Magda Willingham to be evaluated for possible medical marijuana. Pt advised to increase duloxetine to 60mg BID Obesity 213778819 E66.9 Advised eat 3 meals daily with 1-2 healthy snacks, eliminate caloric drinks, no grazing btw meals, reduce packaged foods, portion control, modificati on of cooking style, low fat/low sugar items, 30 minutes of exercise at least 3x/week, reduce emotional/ stress eating, increase fruits/veg etables, take 15-20 minutes to eat. [id number] [facility] [address] [place] [address] 04/16/2023 09:41:42 04/16/2023 10:27:13 Postmenopausal state 11973869 Z78.0 04/16/23 Symptoms continue. Will start 40mg BID. F/u in 1 month Edema of l ower extremity 840055200 R60.0 increase water intake, take rest periods through the day to elevate feet, continue to limit sodium intake Fibromyalgia 288957111 M 79.7 04/16/23 stable with use of ibuprofen. Paper for parking placard completed today. Pt reports dx, no supporting documentat ion available. Referred to Dr. Magda Willingham to be evaluated for possible medical marijuana. Pt advised to increase duloxetine to 60mg BID [id number] [facility] [address] [facility] [address] [place] [address] 05/14/2023 10:24:44 05/14/2023 11:01:44 Postmenopausal state 87803478 Z78.0 ChronicPt stopped taking duloxetine as directed. Encouraged pt to reconsider resumption to manage menopausal flushing and fibromyalg ia. Edema of l ower extremity 504465968 R60.0 Recurrenti ncrease water intake, take rest periods through the day to elevate feet, continue to limit sodium intake. Fibromyalgia 693300846 M 79.7 ChronicPt reports dx, no supporting documentat ion available. Previously referred to Dr. Magda Willingham to be evaluated for possible medical marijuana. Pt encouraged to reconsider taking duloxetine for sx and menopausal flushing. Hyperglyce sanna due to type 2 diabetes mellitus 1234946148 E11.65 KirmpbmL5P 6.8 (01/28/23)W as stable with combinatio n of metformin and glimepirid e; however, pt c/o metformin causes her GI issues and dizziness. Discussed need for regular exercise, increase intake of water/vege tables/fib er. Decrease intake of carbs, especially white rice/pasta /flour/donavon ad/sugar.D iscontinue d metformin d/t GI upset and dizziness. Increase Glimepirid e to 4mg BID [id number] Peri Taylor MD [facility] [address] [facility] [place] [facility] [address] [place] [address] 06/15/2023 09:13:49 06/15/2023 09:50:01 Fall W19.XXXD RecurrentW ill decrease glimepirid e dosage and order shower chair/grab bars to reduce risk of falls.Pt advised to continue to track blood sugars closely. Hyperglyce sanna due to type 2 diabetes mellitus [id number] 20049 E11.65 RegdyxaE6D 6.8 (01/28/23)W as stable with combinatio n of metformin and glimepirid e; however, pt c/o metformin causing her GI issues and dizziness. Still experienci ng dizziness with glimepirid e and Trulicity. Will decrease dose of glimepirid e to 2mg BID and keep trulicity dosage at 0.75mg per week. Plan will be to continue to decrease glimepirid e if possible.R eviewed food and blood sugar diary with pt and discussed need for regular exercise, increase intake of water/vege tables/fib er.BS log shows improvemen t in BS from previously reported highs of 400-500. BS now averaging in the 200s with lows near normal. Decrease intake of carbs, especially white rice/pasta /flour/donavon ad/sugar/f ruits. Food log shows labile sugars when calorie count less than 1200. Per pts log, sx resolve with calorie count btw 0915-3381. Previously discontinu ed metformin d/t GI upset and dizziness. Decrease Glimepirid e to 2mg BIDContinu e Trulicity 0.75mg weekly Obesity [id number] E66.9 ChronicRev iewed pts food/blood sugar diary. Pt still consuming a lot of carbs. Pt also often not consuming enough calories. Advised pt that she needs to try to keep calorie count around 6088-8737 per day. Discussed that consuming too few calories is as detrimenta l as consuming too many. Dizziness [id number] R42 RecurrentP t previously c/o having dizziness with metformin, along with GI upset. Dizziness did not resolve with cessation of metformin. Suspect dizziness is not solely related to her medication s. Sx may be d/t decreased O2 sat, vertigo, low calorie consumptio n, or episodes of hyper/hypo glycemia. Recommend shower chair as above to reduce risk of falls. Food log shows labile sugars when calorie count less than 1200. Per pts log, sx resolve with calorie count btw 9752-0202. [id number] Peri Taylor MD [facility] [address] [address] 06/29/2023 10:04:15 06/29/2023 13:36:10 Hyperglycemia due to type 2 diabetes mellitus [id number] E11.65 [id number] 6.8 (01/28/23); 12.3Was stable with combinatio n of metformin and glimepirid e; however, pt c/o metformin causing her GI issues (nausea/vo miting) and dizziness. Was still experienci ng dizziness/ falls with glimepirid e and Trulicity. Will discontinu e Trulicity per patient request.Re sume glimepirid e 4mg BIDAdd on Janumet 50mg-1000m g daily, will likely need PA. Anxiety disorder [id number] 06 F41.9 ChronicNot well controlled off meds. Will give short course of alprazolam . Highly encouraged pt to consider counseling . Denies any SI/HI at this time. Pt to stop medication and be seen if s/e develop. Pt to call or send update through portal in 2 weeks. Discussed risk of misuse/abu se. Reviewed controlled substance agreement. --RTO 4 weeks for f/u on medication [id number] Peri Taylor MD [facility] [address] [place] [address] 08/11/2023 08:51:14 08/11/2023 09:34:26 Primary fibromyalgia syndrome [id number] M79.7 M47.896 has failed duloxetine , tramadol, gabapentin Hyperglyce sanna due to type 2 diabetes mellitus [id number] 55586 E11.65 improved per home readingsco ntinue current medication plan repeat labs in 3 months [id number] Peri Taylor MD [facility] [address] [facility] [address] [place] [address] 09/20/2023 08:05:01 09/20/2023 08:26:56 Low back pain [id number] M54.50 has persistent pain for 8+ weeks after weekshas weakness and pain that radiates down buttocksxr ay shows arthritis and degenerati ve disk diseasePT referral givenf/u in 6 weeks or sooner if needed [id number] Peri Taylor MD [facility] Primary Care [address] [place] [address] 11/24/2023 09:14:29 11/24/2023 09:55:42 Hyperglycemia due to type 2 diabetes mellitus [id number] 26958 E11.65 not in good control per home readingsco ntinue current medication check labs today Hyperlipidemia 94242126 E78.5 Z79.899 Fatigue 55191467 R53.83 Vitamin D deficiency 347 16288 E55.9 Low back pain 707599079 M54.50 has persistent pain for 8+ weeks after weekshas weakness and pain that radiates down buttocksxr ay shows arthritis and degenerati ve disk diseasePT referral givenf/u in 6 weeks or sooner if needed improved Anxiety disorder 4978020 06 F41.9 Primary fi bromyalgia syndrome 10679314 M79.7 M47.896 has failed duloxetine , tramadol, gabapentin [id number] Andrzej Fritz MD [facility] Pulmonolo gy [address] [place] [address] 08/24/2024 12:13:45 10/16/2024 09:34:23 Dyspnea on exertion 52643731 R06.09 R05.9 T78.40XA [id number] Andrzej Fritz MD [facility] [place] [address] [facility], [facility] [address] [place] [address] 02/14/2025 09:05:06 02/16/2025 12:07:47 Dyspnea on exertion 06398814 R06.09 R05.9 Health Concerns Section Related Observation LastModified by Organization Detai ls LastModified Time None Recorded Concern Status LastModified by Organization Details LastModified Time None Recorded Advance Directives Directive None Recorded Payers Insurance Date Sequence Insurance Name Policy Number Policy Silva Covered Member ID Silva Member ID Guarantor Name 02/16/2025 1 [facility] (MEDICAID HMO) [id number] [facility] [id number] [facility] Notes Date Note Type Note Provider Name and Address Organization Details Recorded Time 08/11/2023 text/html Here to f/u diab etes, home blood sugars are under 200. Mostly 150s or lower. No hypoglycemic events. She has fibromyalgia, was on tramadol, not very helpful. She has been on duloxetine and gabapentin but it caused hallucinations. She has OA and lumbar spondylosis in lumbar spine. Peri Taylor MD [address] [address], [place], [address], [place] 08/16/2023 13:11:31 09/20/2023 text/html Here for f/u, sh e is in significant amount of pain from her low back pain, she does not feel much relief from her hydrocodone/apap. Pain is located left low back and has pain radiating from left buttocks and down left leg. She has to use a cane and walker for ambulation. She has weakness in her left leg, cannot ambulate without cane or walker, struggles to get out of bed. Peri Taylor MD [address] [facility] [address], [place], [address], [place] 09/20/2023 08:23:35 11/24/2023 text/html Here for f/u, sh e is in significant amount of pain from her low back pain, she does not feel much relief from her hydrocodone/apap. Pain is located left low back and has pain radiating from left buttocks and down left leg. She has to use a cane and walker for ambulation. She has weakness in her left leg, cannot ambulate without cane or walker, struggles to get out of bed. update 11/24/23: Pain has gotten a bit better, she is trying to walk 4000 steps per day. She has not been able to start PT but overall feeling better. Home blood sugars are running 400s for the past week, she has been very stressed. +fatigue Peri Taylor MD [address] [facility] [address], [place], [address], [place] [facility] [employer] 12/16/2023 18:12:10 08/24/2024 text/html Primary care/Referring provider: Taco Gavin MD; Reuben Chavez MD Patient is here to go over shortness of breath evaluation/management . Initial development of shortness of breath: 06/2024 Duration of shortness of breath: 2 months Condition of shortness of breath: stable Timing of shortness of breath: none Frequency: every hour Limits activities: yes Aggravating factors: walking Alleviating factors: rest Modified [employer] [place] (mMRC) Dyspnea Scale - Grade 2 Grade 0 I only get breathless with strenuous exercise . Grade 1 I get short of breath when hurrying on the level or walking up a slight hill . Grade 2 I walk slower than people of the same age on the level because of breathlessness or have to stop for breath when walking at my own pace on the level . Grade 3 I stop for breath after walking about 100 yards or after a few minutes on the level . Grade 4 I am too breathless to leave the house or I am breathless when dressing . Treatment history:None Other symptoms: Drooling: no Dysarthria: no Neck pain: no Odynophagia: no Dysphagia: no Weak mastication: no Facial weakness: no Nasal speech: no Protruding tongue: no Productive cough: no Wheezing: no Chest tightness: yes Orthopnea: no Frequent throat clearing or swallowing: no Palpitations: no Heartburn: no Edema: no Environmental exposures: Nicotine smoke: no [place]: no Dye: no Dust mites: yes Mold: no Damp basement: no Wood burning stove: no Animal dander: dogs Cockroaches: no Pollen: yes Arsenic: no Asbestos: no Beryllium: no Cadmium: no Chromium: no Sac smoke: no Diesel fumes: no Nickel: no Silica: no Soot: no EPWORTH SLEEPINESS SCALE (ESS) CHANCE OF DOZING SCORE 0 = would never doze 1 = slight chance of dozing 2 = moderate chance of dozing 3 = high chance of dozing SITUATION AND CHANCE OF DOZING Sitting and reading - 0 Watching television - 0 Sitting inactive in a public place (e.g. a theater or meeting) - 0 As a passenger in a car for an hour without a break - 0 Lying down to rest in the afternoon when circumstances permit - 0 Sitting and talking to someone - 0 Sitting quietly after lunch without alcohol - 0 In a car, while stopped for a few minutes in the traffic - 0 TOTAL SCORE 0 Subjectively, patient has no chance of dozing. Andrzej Fritz MD [address] [place] [address], [address], [place] [facility] [place] [employer] [facility] 08/24/2024 15:24:39 02/14/2025 text/html Primary care/Referring provider: Taco Gavin MD; Reuben Chavez MD Patient is here to go over her lab data and PFT as part of her shortness of breath evaluation/management . Initial development of shortness of breath: uration of shortness of breath: 7 monthsCondition of shortness of breath: stableTiming of shortness of breath: noneFrequency: every 2 hoursLimits activities: yesAggravating factors: walkingAlleviating factors: rest Modified [employer] [place] (mMRC) Dyspnea Scale - Grade 2Grade 0 I only get breathless with strenuous exercise .Grade 1 I get short of breath when hurrying on the level or walking up a slight hill .Grade 2 I walk slower than people of the same age on the level because of breathlessness or have to stop for breath when walking at my own pace on the level .Grade 3 I stop for breath after walking about 100 yards or after a few minutes on the level .Grade 4 I am too breathless to leave the house or I am breathless when dressing . Treatment history:None Other symptoms:Drooling: noDysarthria: noNeck pain: noOdynophagia: noDysphagia: noWeak mastication: noFacial weakness: noNasal speech: noProtruding tongue: noProductive cough: noWheezing: noChest tightness: yesOrthopnea: noFrequent throat clearing or swallowing: noPalpitations: noHeartburn: noEdema: no Environmental exposures:Nicotine smoke: noPaint: noDye: noDust mites: yesMold: noDamp basement: noWood burning stove: noAnimal dander: dogsCockroaches: noPollen: yesArsenic: noAsbestos: noBeryllium: noCadmium: noChromium: noCoal smoke: noDiesel fumes: noNickel: noSilica: noSoot: no EPWORTH SLEEPINESS SCALE (ESS) CHANCE OF DOZING SCORE0 = would never doze1 = slight chance of dozing2 = moderate chance of dozing3 = high chance of dozing SITUATION AND CHANCE OF DOZINGSitting and reading - 1Watching television - 1Sitting inactive in a public place (e.g. a theater or meeting) - 0As a passenger in a car for an hour without a break - 1Lying down to rest in the afternoon when circumstances permit - 2Sitting and talking to someone - 0Sitting quietly after lunch without alcohol - 1In a car, while stopped for a few minutes in the traffic - 0TOTAL SCORE 6Subjectively, patient has a slight chance of dozing. Andrzej Fritz MD [address] [place] [address], [place], [address], [place] [employer] 02/14/2025 09:53:03 OBGyn Episode No OBEpisode recorded.
--- OUTSIDE RECORDS SUMMARY | 2025-04-03 07:29 | XMS_ITS | CONTINUITY OF CARE DOCUMENT ---
Author Name saad nash Address Unknown Organization [facility] Address [address] [place] [address] Phone [phone] Care Team Providers Care Insulation Board Head Saw Operator Name Role Phone Scott MCGEE, Reuben Lima Unavailable [phone] SHANA BISHOP MD Unavailable TOÑA RESENDIZ MD Unavailable [phone] PROBLEMS Condition Status Date Provider Notes CHEST PAIN-01/25 ECHO EF 60 10/23 ECHO NORM AL EF 55 active ? Reuben Chavez MD HISTORY OF TOBACCO ABUSE active Reuben Chavez MD ANXIETY DISORDER GENERALIZED active Reuben walton MD CHEST PAIN-02/24 NUC ABN LVSF EF 45 completed - Reuben Chavez MD SHORTNESS OF BREATH-01/25 JESSIE MILD AIRWAY active ? Reuben Chavez MD Edema active Reuben Chavez MD Angina pectoris completed - Cam Rodrigues Hypertension active Reuben Chavez MD Atrial fib active Reuben Chavez MD Obesity active [facility] Preop exam active [facility] Cardiology examination active Reuben Zaldivar Heart murmur active Reuben Chavez MD Aortic stenosis active Reuben Chavez MD ENCOUNTERS Date Type Provider Location Encounter Diag nosis - In-person encounter Office Visit Reuben Chavez MD [facility] Aortic stenosis - In-person encounter Office Visit Waldo Otto MD [facility] - In-person encounter Office Visit Reuben Chavez MD [facility] Cardiology examinationHeart murmur - In-person encounter Office Visit Reuben Chavez MD [facility] Angina pectorisAtrial fibObesityPreop exam - In-person encounter Office Visit Reuben Chavez MD [facility] CHEST PAIN-5/10 NUC ABN LVSF EF 45Hypertension - In-person encounter Office Visit Reuben Chavez MD [facility] - In-person encounter Office Visit Reuben Chavez MD [facility] - In-person encounter Office Visit Reuben Chavez MD [facility] Edema - In-person encounter Office Visit Reuben Chavez MD [facility] CHEST PAIN-4/10 ECHO EF 60 1 ECHO NORM AL EF 55SHORTNESS OF BREATH-01/25 JESSIE MILD AIRWAY - In-person encounter Office Visit Reuben Chavez MD [facility] - In-person encounter Office Visit Reuben Chavez MD [facility] CHEST PAIN-410 ECHO EF 60 10/23 ECHO NORM AL EF 55HISTORY OF TOBACCO ABUSEANXIETY DISORDER GENERALIZED VITAL SIGNS Date Observation Value Provider Body Mass Index (Ratio) 37.97 kg/m2 Jimenez Beaulieu blood pressure, cuff size regular Astrid danyelle [facility] blood pressure, diastolic 85 mm[Hg] Astrid mitchell [facility] blood pressure, systolic 129 mm[Hg] Flor linton [facility] oxygen saturation, oximetry 98 % [facility] 71 /[facility] weight E&M 201 [lb_av] [facility] 61 [in_i] [facility] Body Mass Index (Ratio) 38.73 kg/m2 Damian Otto MD respiratory rate E&M 16 /min Samina Posley pulse rate 92 /min Samina Posley oxygen saturation, oximetry 98 % Samina Posley blood pressure, cuff size regular Le edna Posley blood pressure, diastolic 88 mm[Hg] Le slie Posley blood pressure, systolic 136 mm[Hg] Les lie Posley weight E&M 205 [lb_av] Samina Posley height E&M 61 [in_i] Samina Posley Body Mass Index (Ratio) 39.11 kg/m2 Alexy monterroso Cale oxygen saturation, oximetry 98 % Sondra Caballero pulse rate 93 /min Sondra Caballero blood pressure, cuff size regular Juan M bitpatience Caballero blood pressure, diastolic 78 mm[Hg] Ta bitha Caballero blood pressure, systolic 112 mm[Hg] Tab itha Caballero weight E&M 207 [lb_av] Sondra Caballero respiratory rate E&M 12 /min Sondra Caballero height E&M 61 [in_i] Sondra Caballero blood pressure, resting Yes Merrick malcolm [facility] Body Mass Index (Ratio) 37.94 kg/m2 Merrick malcolm Lilia respiratory rate E&M 18 /min Campos Rodrigues blood pressure, diastolic 93 mm[Hg] Raj Bernardo blood pressure, systolic 150 mm[Hg] Latesha Bernardo oxygen saturation, oximetry 97 % Nicolás Bernardo pulse rate 101 /min Nicolás taylor weight E&M 200.8 [lb_av] Nicolás johnson height E&M 61 [in_i] Nicolás guardadoon blood pressure, diastolic, left arm 97 mm [Hg] Danelle Muller blood pressure, systolic, left arm 185 mm [Hg] Danelle Muller blood pressure, diastolic, right arm 93 m m[Hg] Danelle Muller blood pressure, systolic, right arm 140 m m[Hg] Danelle Muller blood pressure, diastolic 97 mm[Hg] Ia christine Muller blood pressure, systolic 185 mm[Hg] Carolyn jerson Muller pulse rate 94 /min [facility] oxygen saturation, oximetry 97 % [facility] respiratory rate E&M 17 /min [facility] Body Mass Index (Ratio) 38.92 kg/m2 Ivelisse paul Muller weight E&M 206 [lb_av] [facility] blood pressure, diastolic 82 mm[Hg] Raj Bernardo blood pressure, systolic 119 mm[Hg] Latesha Ernst Bernardo Body Mass Index (Ratio) 28.34 kg/m2 Zulema Bernardo pulse rate 88 /min Nicolás Baig janusz oxygen saturation, oximetry 97 % Nicolás Bernardo respiratory rate E&M 16 /min Victorino Benrardo weight E&M 150 [lb_av] Nicolás Baig [facility] blood pressure, diastolic, left arm 92 mm [Hg] [facility] blood pressure, systolic, left arm 143 mm [Hg] [facility] blood pressure, diastolic, right arm 81 m m[Hg] [facility] blood pressure, systolic, right arm 121 m m[Hg] [facility] blood pressure, diastolic 92 mm[Hg] Ia christine Muller blood pressure, systolic 143 mm[Hg] Carolyn jerson Muller pulse rate 92 /min [facility] Body Mass Index (Ratio) 35.33 kg/m2 Ivelisse Muller oxygen saturation, oximetry 97 % Danelle Muller respiratory rate E&M 16 /min Danelle Muller weight E&M 187 [lb_av] Danelle Muller Body Mass Index (Ratio) 35.33 kg/m2 Feliciaa mac [facility] blood pressure, diastolic, left arm 80 mm [Hg] Aneatris [facility] blood pressure, systolic, left arm 132 mm [Hg] Aneatris [facility] blood pressure, diastolic, right arm 80 m m[Hg] Aneatris [facility] blood pressure, systolic, right arm 128 m m[Hg] Aneatris [facility] blood pressure, diastolic 80 mm[Hg] An eatris [facility] blood pressure, systolic 132 mm[Hg] Ane atris [facility] pulse rate 84 /min [facility] oxygen saturation, oximetry 97 % [facility] rate E&M 16 /min Aneatri s [facility] weight E&M 187 [lb_av] [facility] height E&M 61 [in_i] [facility] blood pressure, diastolic 97 mm[Hg] Maikol Haque blood pressure, systolic 135 mm[Hg] Cory Haque pulse rate 84 /min Monique Haque oxygen saturation, oximetry 97 % Monique Haque respiratory rate E&M 16 /min Leandro Haque weight E&M 184 [lb_av] Monique Haque blood pressure, diastolic, left arm 80 mm [Hg] Monique Haque blood pressure, systolic, left arm 126 mm [Hg] Monique Haque blood pressure, diastolic, right arm 81 m m[Hg] Monique Haque blood pressure, systolic, right arm 119 m m[Hg] Monique Haque blood pressure, diastolic 80 mm[Hg] Maikol Costais blood pressure, systolic 126 mm[Hg] Cory drake Haque pulse rate 68 /min Monique Garland oxygen saturation, oximetry 98 % Monique Garland respiratory rate E&M 16 /min Leandro alexis Garland weight E&M 178 [lb_av] Monique Haque blood pressure, diastolic 91 mm[Hg] Sylvester Cline RN blood pressure, systolic 142 mm[Hg] Torey Cline RN pulse rate 87 /min Torey Cline RN oxygen saturation, oximetry 100 % Torey Cline RN respiratory rate E&M 20 /min Torey corcoran RN weight E&M 170 [lb_av] Torey Cline RN ALLERGIES Allergy Name Onset Date Reaction Criticality Status FENTANYL High Criticality active RESULTS Date Observation Value Provider Reference Range Interpretation Location pro brain natriuretic peptide 20.4 pg/mL [facility] 0.0 - 125.0 HISTORY OF MEDICATION USE Medication Status Instructions Dates Provider Indications Com ments metoprolol succinate 25 mg tablet extended release 24 hr active Take 1 tablet by mouth once a day Junior Harris alprazolam 0.5 mg tablet active Take one tablet PO BID Sondrald Caballero hydrocodone-aceta minophen 5-325 mg tablet active Take one tab PO QD Sondra Federico glimepiride 4 mg tablet active Take one tab PO BID Sondra Caballero Januvia 100 mg tablet active Take one tablet PO QD Sondra Caballero lisinopril 5 mg tablet active Take one tab PO QD Sondra Caballero metformin 500 mg tablet active TAKE 1 TABLET BY MOUTH TWICE A DAY Sondrald Caballero oxybutynin chloride 10 mg tablet extended release 24hr active Take one tab PO QD Sondra Caballero rosuvastatin 20 mg tablet active Take 1 tablet by mouth once a day Sondrald Caballero Lantus Solostar U-100 Insulin 100 unit/mL (3 mL) insulin pen active Inject 15 unit subcutaneously once a day Sondrald Caballero KEPPRA TABLET completed 250 mg twice daily - Nicolás Bernardo KLOR-CON M10 10 MEQ ORAL TABLET EXTENDED RELEASE completed One tab daily - Nicolás Bernardo LASIX 20 MG ORAL TABLET completed One tab daily - Nicolás Bernardo ASPIRIN 81 MG ORAL TABLET completed ONE TAB. DAILY - Nicolás Bernardo NITROGLYCERIN 0.4 MG SUBLINGUAL TABLET SUBLINGUAL completed ONE UNDER THE TONGUE PRN - Monique Haque XANAX 0.25 MG ORAL TABLET completed ONE TAB. THREE TIMES DAILY PRN - Monique Haque SOCIAL HISTORY Date Observation Value Provider smoking status Former smoker Yogesh Chencoretta valencia smoking status Former smoker Junior Morenomitesh urban smoking status Former smoker Reuben Chavez MD smoking status Former smoker Cam sanchez alcohol use, average drinks per day no Nicolás Bernardo caffeine use, averag e drinks per day 1+ Cam Rodrigues social history reviewed E&M revi ewed - no changes required Cam Rodrigues social history E&M Marital Statu s: L jesenia with family/friends E thnicity: Smoking History: Jarrell martini is a former smoker. Cam Rodrigues alcohol use, average drinks per day no Danelle Muller caffeine use, averag e drinks per day yes Danelle Muller smoking status Former smoker Danelle Craftdanyelle reyes social history E&M Marital Statu s: L jesenia with family/friends E thnicity: Smoking History: Jarrell martini is a former smoker. Jarrell martini has been counseled to quit. Reuben Chavez MD social history reviewed E&M revwilmar ewed - no changes required Reuben Chavez MD alcohol use, average drinks per day no Nicolás Bernardo caffeine use, averag e drinks per day yes Nicolás Bernardo smoking/tobacco cess ation, patient education and counseling yes Nicolás Bernardo smoking status Former smoker Nicolás Falcon alcohol use, average drinks per day no Danelle Muller caffeine use, averag e drinks per day yes Danelle Muller smoking/tobacco cess ation, patient education and counseling yes Danelle Muller smoking status Former smoker Danelle White eric smoking/tobacco cess ation, patient education and counseling yes Reuben Chavez MD social history reviewed E&M revi ewed - no changes required Reuben Chavez MD smoking status Former smoker Rommel Terrance marshall social history reviewed E&M reviewed Torey Cline RN social history E&M Marital Statu s: L jesenia with family/friends E thnicity: Torey Cline RN caffeine use, averag e drinks per day yes Torey Cline RN alcohol use, average drinks per day no Torey Cline RN smoking status Quit Torey Cline RN social history reviewed E&M reviewed Torey Cline RN FUNCTIONAL STATUS Date Observation Value Provider HRA, CV Assess/Plan, Angina (inactive) Management Plan continue current therapy Reuben Chavez MD MENTAL STATUS Date Observation Value Provider assessment of judgme nt and insight E&M Alert and oriented to time, place and person. Mood and affect are normal Torey Cline RN assessment of judgme nt and insight E&M Alert and oriented to time, place and person. Mood and affect are normal.Alert and oriented to time, place and person. Mood and affect are normal. Reuben Chavez MD assessment of judgme nt and insight E&M Alert and oriented to time, place and person. Mood and affect are normal.Alert and oriented to time, place and person. Mood and affect are normal. Reuben Chavez MD FAMILY HISTORY Family Member Condition Daughter Family History Unkno wn INSURANCE PROVIDERS Payer name Policy type / Coverage type [place] [employer] [place] [employer] MEDICA[employer] Medicaid [id number] ADVANCE DIRECTIVES Name Date DISCUSSED - NO DECISION MADE TREATMENT PLAN Date Name Performer Cardiology:Pt still complaining of chest pain with pressure and and dyspnea on exertion. Most recent echo shows normal EF and severe aortic stenosis. Will schedule R+L heart cath. Yogesh Beaulieu Cardiology:Pt still complaining of chest pain with pressure and and dyspnea on exertion. Most recent echo shows normal EF and severe aortic stenosis. Will schedule R+L heart cath. Yogesh Chencorettaannie Cardiology: B P today: 129/85 P rior BP: 136/88 (06/20/2024) Her updated medication list for this problem includes: Metoprolol Succinate 25 Mg Tablet Extended Release 24 Hr (Metoprolol succinate) ..... Take 1 tablet by mouth once a day Lisinopril 5 Mg Tablet (Lisinopril) ..... Take one tab po qd This visit has been a part of the consistent, comprehensive, and ongoing management of the chronic medical condition(s) listed above for the patient. Yogesh Chencorettaannie Cardiology:Most rece nt echo shows normal EF and severe aortic stenosis. Will schedule R+L heart cath. Yogesh Chencorettaannie Cardiology:12/21, echo showed significant aortic stenosis. Yogesh Christofer Cardiology: H er updated medication list for this problem includes: Metoprolol Succinate 25 Mg Tablet Extended Release 24 Hr (Metoprolol succinate) ..... Take 1 tablet by mouth once a day Lisinopril 5 Mg Tablet (Lisinopril) ..... Take one tab po qd BP today: 136/88 P rior BP: 112/78 (05/24/2024) Junior Harris Cardiology: H er updated medication list for this problem includes: Metoprolol Succinate 25 Mg Tablet Extended Release 24 Hr (Metoprolol succinate) ..... Take 1 tablet by mouth once a day Junior Harris Cardiology: O rders: S tress Regadenoson (CPT-36364) Junior Harris Cardiology: O rders: S tress Regadenoson (CPT-25926) Her updated medication list for this problem includes: Metoprolol Succinate 25 Mg Tablet Extended Release 24 Hr (Metoprolol succinate) ..... Take 1 tablet by mouth once a day Lisinopril 5 Mg Tablet (Lisinopril) ..... Take one tab po qd Junior Joseever Cardiology Junior Morenozai Cardiology Junior Morenozai Cardiology: h aving panic attacks as of late A dvised to see pcp and psych Andrae Madsen Cardiology: T he pt presented for dental surgery and was told that she was in Afib. She did not have any symptoms. She had a normal cardiac cath in 2014. We do not have any record of Afib in her visits with us. Will obtain 30-day tele to see if she has bouts of Afib. Will also ask the dental office to send us her records. Finally we will obtain a f/u echo. Andrae Madsen Cardiology:check echo Reuben Rainey i, MD Cardiology:Weight loss advised. [facility] Cardiology:Clear for dental procedures from cardiovascular perspective. [facility] Cardiology:BP today: 150/93 P rior BP: 185/97 (07/22/2016) Orders: S NOMED-CT: [id number] Current Medications Documented ([id number]) C omplete Echo (CPT-61573) [facility] Cardiology:The pt pr esented for dental surgery and was told that she was in Afib. She did not have any symptoms. She had a normal cardiac cath in 2014. We do not have any record of Afib in her visits with us. Will obtain 30-day tele to see if she has bouts of Afib. Will also ask the dental office to send us her records. Finally we will obtain a f/u echo. Cam [facility] Cardiology:Complaini ng of occasional leg swelling despite the Lasix. We will check proBNP. Cam [facility] Cardiology:BP today: 185/97 P rior BP: 119/82 (07/03/2015) Complaining of labile BP. Will check renal artery duplex and arterial duplex of the upper extremities due to a significant difference in BP between the arms. Her updated medication list for this problem includes: Lasix 20 Mg Tabs (Furosemide) ..... One tab daily Aspirin 81 Mg Tabs (Aspirin) ..... One tab. daily Cam Rodrigues Cardiology:Cardiac c ath was essentially normal. Lasix is helping the leg swelling and she will continue. Reuben Chavez MD follow up:Cardiac ca th was negative 10 yrs ago but she continues to complain of angina. WIll arrange cardiac cath.Nuclear Stress Findings: 1. Regadenoson mediated myocardial perfusion study 2 . Abnormal left ventricular systolic function with a calculated ejection fraction of 45%. 3 . There is a fixed defect involving the anterior wall most consistent with breast attenuation. (02/20/2010) C ardiac Cath: No evidence of hemodynamically significant fixed obstructive coronary artery disease. LV systolic function is preserved. EF 60%. (11/18/2005) Latrice Xiong follow up:Venous dup caleb was normal. She continues to complain of leg edema. WIll start lasix 20mg daily and I advised her to wear support stocking Latrice Xiong test results: B P today: 135/97 Prior BP: 126/80 (02/12/2010) N uclear Stress Findings: 1. Regadenoson mediated myocardial perfusion study 2 . Abnormal left ventricular systolic function with a calculated ejection fraction of 45%. 3 . There is a fixed defect involving the anterior wall most consistent with breast attenuation. (02/20/2010) C ardiac Cath: No evidence of hemodynamically significant fixed obstructive coronary artery disease. LV systolic function is preserved. EF 60%. (11/18/2005) E chocardiogram: Normal left ventricular systolic function. Normal left ventricular size. Normal left ventricular wall thickness. There is E to A wave reversal consistent with impaired LV relaxation . Normal E/E` 8.0. Left ventricular ejection fraction is estimated at 60%. The mitral valve is normal in appearance and function. No mitral valve r egurgitation is seen. Aortic valve appears structurally normal. Velocities, as well as gradients across the aortic valve are normal. No evidence of aortic insufficiency. The tricuspid valve is normal in appearance and function. No evidence of tricuspid regurgitation. IVC is normal in size. Unable to adequately assess the RVSP. (02/14/2010) Reuben Chavez MD test results: B P today: 135/97 Prior BP: 126/80 (02/12/2010) N uclear Stress Findings: 1. Regadenoson mediated myocardial perfusion study 2 . Abnormal left ventricular systolic function with a calculated ejection fraction of 45%. 3 . There is a fixed defect involving the anterior wall most consistent with breast attenuation. (02/20/2010) C ardiac Cath: No evidence of hemodynamically significant fixed obstructive coronary artery disease. LV systolic function is preserved. EF 60%. (11/18/2005) E chocardiogram: Normal left ventricular systolic function. Normal left ventricular size. Normal left ventricular wall thickness. There is E to A wave reversal consistent with impaired LV relaxation . Normal E/E` 8.0. Left ventricular ejection fraction is estimated at 60%. The mitral valve is normal in appearance and function. No mitral valve r egurgitation is seen. Aortic valve appears structurally normal. Velocities, as well as gradients across the aortic valve are normal. No evidence of aortic insufficiency. The tricuspid valve is normal in appearance and function. No evidence of tricuspid regurgitation. IVC is normal in size. Unable to adequately assess the RVSP. (02/14/2010) Reuben Chavez MD f/u: T he following medications were removed from the medication list: Nitroglycerin 0.4 Mg Subl (Nitroglycerin) ..... One under the tongue prn Orders: C omplete Echo (CPT-86512) S pirometry (CPT-18715) S tress Test - Adenosine (54507) Reuben Chavez MD office visit: B P today: 142/91 ECG normal Reuben Chavez MD Date Name Complete Echo PROTHROMBIN TIME WIT H INR LIPID PANEL CBC (INCLUDES DIFF/P LT) BASIC METABOLIC PANE L W/EGFR Stress Regadenoson Complete Echo Mobile Cardiac Tele Complete Echo PROBNP, N TERMINAL Arterial Duplex Uppe r Extremity Bilateral Renal Artery Duplex Cardiac Cath - Left - GC Venous Doppler Bilat eral LE - Standing Complete Echo Sleep Study Stress Test - Adenos ine Spirometry Complete Echo Stress Test - Nuclea r Complete Echo HISTORY OF PROCEDURES Procedure Date Procedure Name Provider Procedure Notes S tatus Complex e/m visit add on Waldo Otto MD completed EKG Reuben Chavez MD completed Event Monitor Reuben Chavez MD complet ed EKG Reuben Chavez MD completed SNOMED-CT: [id number] Current Medications Documented Reuben Chavez MD completed EKG Reuben Chavez MD completed SNOMED-CT: [id number] Current Medications Documented Reuben Chavez MD completed EKG Reuben Chavez MD completed EKG Reuben Chavez MD completed
--- NOTE | 2025-04-03 07:55 | ECHO_ITS ---
Patient Info Name: Paris Linder Ronald Age: 60 years : 1965 Gender: Female Ht: 61 in Wt: 181 lbs BSA: 1.92 m2 HR: 81 bpm BP: 128 / 91 mmHg Technical Quality: Fair Exam Date: 04/03/2025 8:02 AM Patient Status: O Admit Date: 04/03/2025 Exam Type: CA echo doppler color flow Complete two-dimensional, color flow and Doppler transthoracic echocardiogram is performed. Supervisor Order Takers: Charlene Franz Attending Provider: Margarito Retana DO Summary 1. Complete two-dimensional, color flow and Doppler transthoracic echocardiogram is performed. 2. Left ventricular chamber dimension is normal. 3. Left ventricular systolic function is normal, estimated at 60-65. 4. There is mild concentric increased left ventricular wall thickness. 5. The left ventricular diastolic function is grade I diastolic dysfunction. 6. E/e' 11 is mildly elevated. 7. There is severe aortic valve sclerosis. 8. There is severe aortic valve stenosis with a peak velocity of 397 cm/s, mean gradient of 43 mmHg, and aortic valve area of 0.7 cm2. Left Ventricle E/e' 11 is mildly elevated. Left ventricular chamber dimension is normal. Left ventricular systolic function is normal, estimated at 60-65. There is mild concentric increased left ventricular wall thickness. The left ventricular diastolic function is grade I diastolic dysfunction. Right Ventricle Right ventricular chamber dimension is normal. Right ventricular systolic function is normal and with normal TAPSE 1.8 cm. Left Atria Left atrial chamber dimension is normal. Right Atria Right atrial chamber dimension is normal. Aortic Valve The aortic valve is probable trileaflet. There is severe aortic valve sclerosis. There is severe aortic valve stenosis with a peak velocity of 397 cm/s, mean gradient of 43 mmHg, and aortic valve area of 0.7 cm2. There is no aortic valve regurgitation. Pulmonic Valve There is no pulmonic regurgitation. Mitral Valve There is no mitral valve stenosis. There is no mitral valve regurgitation. Tricuspid Valve There is no tricuspid valve regurgitation. Pericardium/Pleural There is no pericardial effusion. Inferior Vena Cava Normal inferior vena cava with >50% collapse upon inspiration consistent with normal right atrial pressure, 5 mmHg. Aorta The aortic root size at the sinus of Valsalva is normal. Left Ventricular Outflow Tract Name Value Normal LVOT 2D LVOT Diameter 2.0 cm LVOT Doppler LVOT Peak Velocity 94 cm/s LVOT Peak Gradient 3 mmHg LVOT Mean Gradient 2 mmHg LVOT VTI 21 cm LVOT VTI/AV VTI Ratio 0.2 LVOT Stroke Volume 65 ml LVOT CO 4.9 l/min LVOT CI 2.6 l/min/m2 Pulmonic Valve Name Value Normal RVOT Doppler RVOT Peak Velocity 96 cm/s RVOT Peak Gradient 4 mmHg PV Doppler PV Peak Velocity 95 cm/s PV Peak Gradient 4 mmHg Mitral Valve Name Value Normal MV Doppler MV Peak Gradient 5 mmHg MV Mean Gradient 2 mmHg MV Area (Cont Eq VTI) 3.1 cm2 MV Diastolic Function MV E Peak Velocity 65 cm/s MV A Peak Velocity 98 cm/s MV E/A 0.7 MV Decel Time (PW) 289 ms MV Annular TDI MV E/e' (Septal) 10.7 MV E/e' (Lateral) 11.4 MV E/e' (Average) 11.1 Tricuspid Valve Name Value Normal Estimated PAP/RSVP RA Pressure 5 mmHg <=5 TV Annular TDI TV Lateral Helga s' Velocity 9.3 cm/s >=9.5 Aortic Valve Name Value Normal AV Doppler AV Peak Velocity 397 cm/s AV Peak Gradient 59 mmHg AV Mean Gradient 43 mmHg AV VTI 93 cm AV Area (Cont Eq VTI) 0.7 cm2 >=3.0 AV Area (Cont Eq Shantanu) 0.7 cm2 AV DI (Shantanu) 0.24 AV Regurgitation 2D LVOT Area 3.1 cm2 Ventricles Name Value Normal LV Dimensions 2D/MM IVS Diastolic Thickness (2D) 1.0 cm 0.6-1.0 LVID Diastole (2D) 4.1 cm 3.8-5.2 LVIW Diastolic Thickness (2D) 1.1 cm 0.6-0.9 LVID Systole (2D) 2.4 cm 2.2-3.5 LVOT Diameter 2.0 cm LV Mass (2D Cubed) 144.67 g 67.00-162.00 LV Mass Index (2D Cubed) 75 g/m2 43-95 Relative Wall Thickness (2D) 0.57 <=0.42 LV Fractional Shortening/Ejection Fraction 2D/MM LV Fractional Shortening (2D) 40 % 27-45 LV EF (2D Teichholz) 72 % LV Diastolic Volume (4C MOD) 68 ml LV EF (4C MOD) 66 % LV Diastolic Volume (2C MOD) 62 ml LV EF (2C MOD) 67 % LV Diastolic Volume (BP MOD) 65 ml 46-106 LV Diastolic Volume Index (BP MOD) 34 ml/m2 29-61 LV Systolic Volume (BP MOD) 26 ml 14-42 LV Systolic Volume Index (BP MOD) 14 ml/m2 8-24 LV EF (BP MOD) 60 % 54-74 LV Diastolic Length (4C) 7.6 cm LV Systolic Length (4C) 6.6 cm LV Stroke Volume (4C MOD) 45 ml Atria Name Value Normal LA Dimensions LA Volume (4C A-L) 37 ml LA Volume (BP A-L) 32 ml RA Dimensions RA Systolic Major [place] Length (4C) 4.1 cm 2.2-2.8 RA Area (4C) 10.6 cm2 <=18.0 Report Signatures
== END 2025-04-03 07:24 | disposition home or self-care (01) ==
LOC: ANHCARD 07:24
PROVIDERS: PCP Emergency Medicine; Visit Provider Internal Medicine Cardiovascular Disease
DX: I35.0 Nonrheumatic aortic (valve) stenosis (principal)
CPT/HCPCS: 93306

== ENCOUNTER 2025-05-01 01:04 | Day surgery (SDC) | payer OTHER, SELFPAY ==
[2025-04-30 10:31] VITALS: BMI 32.1
[2025-05-01] VITALS (9 sets, daily range): BP systolic 120–163; BP diastolic 70–88; PULSE 71–77; RESP 12–20; TEMP 35.6; O2SAT 96–100
--- OUTSIDE RECORDS SUMMARY | 2025-05-01 01:07 | XMS_ITS | Data Portability ---
Author Organization [facility] [employer], Main Office Address [address] [place] [address] Assessment Encounter Date Assessment Date Assessment LastModified by Organization Details LastModified Time 08/24/2024 08/24/2024 Assessment: Cough Dyspnea Severe Plan: The following were reviewed and explained to the patient: primary care/referral note Myocardial perfusion test 07/31/24 EF 55%, no ischemia Limited 2-D echocardiogram 08/02/24 severe Cough/Dyspnea workup will be done as follows: Respiratory allergen panel for [facility] Serum IgE Serum total IgG, IgG1, IgG2, IgG3, IgG4 Bxvib-3-ficgboqhbt n phenotype and level TB stimulated gamma [...] Follow-up: 1 week after methacholine challenge testing Not available 02/14/2025 09:38:20 Plan of Treatment Reminders Order Date Submit Date Provider Last Modified By Organization Details Last Modified Time Details Appointments None recorded. Lab alpha-1-ant itrypsin (aat) phenotype, serum 2023 024 [email or web address] 82 [facility] ([facility]), [address] [place], [address], 4 12:25:51 BNP (B-type natriuretic peptide), serum or plasma 2023 B[facility] (Lab), [address] [place], [address], 4 14:14:24 ige, total, serum [address] (Lab), [address] [place], [address], 4 12:25:51 tb (M tuberculosi s), ifn-gamma mary beth, blood 2023 024 [place] [address] 82 [facility] (Lab), [address] [place], [address], 4 12:25:52 eosinophil count, manual, blood (OBS) [address] [facility] [address] [place] [address] (Lab), [address] [place], [address], 4 12:25:52 igg subclasses 1+2+3+4, serum [address] (Lab), [address] [place], [address], 4 12:25:52 respiratory allergen panel, [facility] A, serum [address] [place] [address] (Lab), [address] [place], [address], 4 12:25:52 respiratory allergen panel - [facility] b [address] [place] [address] (Lab), [address] [place], [address], 4 12:25:52 vitamin D, 25-hydroxy, total, serum 2023 024 [facility] gh36 Not available 4 11:55:39 lipid panel, serum 2023 024 [facility]36 Not available 4 11:54:42 hepatic function panel, serum 2023 024 [facility]36 Not available 4 11:54:56 CBC w/ auto diff 2023 024 [facility]36 Not available 4 11:55:09 HbA1c (hemoglobin A1c), blood 2023 024 Not available 4 15:23:49 BMP, serum or plasma 2023 024 [facility]36 Not available 4 11:52:29 TSH, serum or plasma 2023 024 [facility]36 Not available 4 11:55:24 Referral physical therapist referral - *Please call pt to schedule* 2022 023 [email or web address] 256 [facility], [address] [place], [address], 4 09:04:04 Procedures None recorded. Surgeries None recorded. Imaging None recorded. Medication Orders hydrocodone 5 mg-acetamin ophen 325 mg tablet [address] [facility], [address] [place], [address], 4 14:11:44 alprazolam 0.5 mg tablet 2023 024 [facility], [address] [place], [address], 4 09:48:18 hydrocodone 5 mg-acetamin ophen 325 mg tablet [address] [facility], [facility] [place], [address], 14:11:44 Patient TargetsNo targets recorded. Patient Instructions Encounter Date Encounter Id Patient Instructions Last Modified By Organization Details Last Modified Time 08/24/2024 [id number] complete PFT w/ post bronchodilator spirometry* - Please call patient to schedule. NPAN [id number] per [employer] website. Not available 09/26/2024 08:47:05 02/14/2025 [id number] methacholine challenge* - Please call patient to schedule. NPAN [id number] per payor website. Not available 03/20/2025 14:54:01 Reason for Referral [...] 6.9 x10'3 /uL 4.2-10 .8 Not Available [facility] (Lab) [address] [place], [address], 11/24/2023 20:09:23 11/24/19 24 11/24/2023 CBC/C OMPLE TE BLD COUNT W/DIF F red blood cells 4.90 x10'6 /uL 3.80-5 .20 Not Available [facility] (Lab) [address] [place], [address], 11/24/2023 20:09:23 11/24/19 24 11/24/2023 CBC/C OMPLE TE BLD COUNT W/DIF F hemoglobin 15.6 g/dL 12.0-1 5.6 Not Available [facility] (Lab) [address] [place], [address], 11/24/2023 20:09:23 11/24/19 24 11/24/2023 CBC/C OMPLE TE BLD COUNT W/DIF F hematocrit 46.0 % 35.7-4 5.7 high Not Available [facility] (Lab) [address] [place], [address], 11/24/2023 20:09:23 11/24/19 24 11/24/2023 CBC/C OMPLE TE BLD COUNT W/DIF F mean red cell volume 93.9 fL 82.0-9 9.0 Not Available [facility] (Lab) [address] [place], [address], 11/24/2023 20:09:23 11/24/19 24 11/24/2023 CBC/C OMPLE TE BLD COUNT W/DIF F mean red cell hemoglobin 31.8 pg 27.0-3 3.0 Not Available [facility] (Lab) [address] [place], [address], 11/24/2023 20:09:23 11/24/19 24 11/24/2023 CBC/C OMPLE TE BLD COUNT W/DIF F mean RBC HGB concentratio n 33.9 g/dL 31.0-3 6.0 Not Available [facility] (Lab) [address] [place], [address], 11/24/2023 20:09:23 11/24/19 24 11/24/2023 CBC/C OMPLE TE BLD COUNT W/DIF F red cell distribution width 11.6 % 11.8-1 5.5 low Not Available [facility] (Lab) [address] [place], [address], 11/24/2023 20:09:23 11/24/19 24 11/24/2023 CBC/C OMPLE TE BLD COUNT W/DIF F platelets 217 x10'3 /uL 150-40 0 Not Available [facility] (Lab) [address] [place], [address], 11/24/2023 20:09:23 11/24/19 24 11/24/2023 CBC/C OMPLE TE BLD COUNT W/DIF F mean platelet volume 10.1 fL 9.0-12 .4 Not Available [facility] (Lab) [address] [place], [address], 11/24/2023 20:09:23 11/24/19 24 11/24/2023 CBC/C OMPLE TE BLD COUNT W/DIF F neutrophils 56.5 % 39.0-7 2.0 Not Available [facility] (Lab) [address] [place], [address], 11/24/2023 20:09:23 11/24/19 24 11/24/2023 CBC/C OMPLE TE BLD COUNT W/DIF F lymphocytes 32.7 % 16.0-4 7.0 Not Available [facility] (Lab) [address] [place], [address], 11/24/2023 20:09:23 11/24/19 24 11/24/2023 CBC/C OMPLE TE BLD COUNT W/DIF F monocytes 8.3 % 5.0-12 .0 Not Available [facility] (Lab) [address] [place], [address], 11/24/2023 20:09:23 11/24/19 24 11/24/2023 CBC/C OMPLE TE BLD COUNT W/DIF F eosinophils 1.5 % 1.0-7. 0 Not Available [facility] (Lab) [address] [place], [address], 11/24/2023 20:09:23 11/24/19 24 11/24/2023 CBC/C OMPLE TE BLD COUNT W/DIF F basophils 0.6 % 0.0-2. 0 Not Available [facility] (Lab) [address] [place], [address], 11/24/2023 20:09:23 11/24/19 24 11/24/2023 CBC/C OMPLE TE BLD COUNT W/DIF F immature granulocytes 0.4 % 0.00-0 .50 Not Available [facility] (Lab) [address] [place], [address], 11/24/2023 20:09:23 11/24/19 24 11/24/2023 CBC/C OMPLE TE BLD COUNT W/DIF F neutrophils, absolute count 3.89 x10'3 /uL 1.5-8. 0 Not Available [facility] (Lab) [address] [place], [address], 11/24/2023 20:09:23 11/24/19 24 11/24/2023 CBC/C OMPLE TE BLD COUNT W/DIF F lymphocytes, absolute count 2.25 x10'3 /uL 1.07-3 .43 Not Available [facility] (Lab) [address] [place], [address], 11/24/2023 20:09:23 11/24/19 24 11/24/2023 CBC/C OMPLE TE BLD COUNT W/DIF F monocytes, absolute count 0.57 x10'3 /uL 0.29-0 .99 Not Available [facility] (Lab) [address] [place], [address], 11/24/2023 20:09:23 11/24/19 24 11/24/2023 CBC/C OMPLE TE BLD COUNT W/DIF F eosinophils, absolute count 0.10 x10'3 /uL 0.02-0 .53 Not Available [facility] (Lab) [address] [place], [address], 11/24/2023 20:09:23 11/24/19 24 11/24/2023 CBC/C OMPLE TE BLD COUNT W/DIF F basophils, absolute count 0.04 x10'3 /uL 0.01-0 .08 Not Available [facility] (Lab) [address] [place], [address], 11/24/2023 20:09:23 11/24/19 24 11/24/2023 CBC/C OMPLE TE BLD COUNT W/DIF F immature granulocytes ,absolute 0.03 x10'3 /uL 0.00-0 .05 Not Available [facility] (Lab) [address] [place], [address], 11/24/2023 20:09:23 11/24/19 24 11/24/2023 CBC/C OMPLE TE BLD COUNT W/DIF F nucleated red blood cells 0.0 % -0 Not Available [facility] (Lab) [address] [place], [address], 11/24/2023 20:09:23 11/24/19 24 11/24/2023 CBC/C OMPLE TE BLD COUNT W/DIF F NRBC# 0.00 x10'3 /uL Not Available [facility] (Lab) [address] [place], [address], 11/24/2023 20:09:23 11/24/19 24 11/24/2023 VITAM IN D 25-HY DROXY [id number] 28.4 NG/mL 30-100 low Vitam in D Statu s: Defic ient: <20 ng/mL Insuf ficie nt: 20-29 ng/mL Suffi cient : 30-10 0 ng/mL Not Available [facility] (Lab) [address] [place], [address], 11/24/2023 20:51:13 11/24/19 24 11/24/2023 BASIC METAB OLIC PANEL sodium 137 mmol/ L 137-14 5 Not Available [facility] (Lab) [address] [place], [address], 11/24/2023 20:54:42 11/24/19 24 11/24/2023 BASIC METAB OLIC PANEL potassium 4.0 mmol/ L 3.5-5. 1 Not Available [facility] (Lab) [address] [place], [address], 11/24/2023 20:54:42 11/24/19 24 11/24/2023 BASIC METAB OLIC PANEL chloride 100 mmol/ L 98-107 Not Available [facility] (Lab) [address] [place], [address], 11/24/2023 20:54:42 11/24/19 24 11/24/2023 BASIC METAB OLIC PANEL carbon dioxide 33 mmol/ L 22-30 high Not Available [facility] (Lab) [address] [place], [address], 11/24/2023 20:54:42 11/24/19 24 11/24/2023 BASIC METAB OLIC PANEL anion gap 8.0 mmol/ L 14-22 low Not Available [facility] (Lab) [address] [place], [address], 11/24/2023 20:54:42 11/24/19 24 11/24/2023 BASIC METAB OLIC PANEL glucose 313 mg/dL 70-99 high Not Available [facility] (Lab) [address] [place], [address], 11/24/2023 20:54:42 11/24/19 24 11/24/2023 BASIC METAB OLIC PANEL BUN 9 mg/dL 8-19 Not Available [facility] (Lab) [address] [place], [address], 11/24/2023 20:54:42 11/24/19 24 11/24/2023 BASIC METAB OLIC PANEL creatinine 0.73 mg/dL 0.66-1 .25 Not Available [facility] (Lab) [address] [place], [address], 11/24/2023 20:54:42 11/24/19 24 11/24/2023 BASIC METAB OLIC PANEL GFR >60 Refer ence Range : [place] ge GFR Healt hy Adult : >60 [...] calcu lator is avail able on the [facility] websi te: [email or web address] :[email or web address] gan.sammy [email or web address] rg/pr ofess ional s/kdo qi/gf r_cal culat or Not Available [facility] (Lab) [address] [place], [address], 11/24/2023 20:54:42 11/24/19 24 11/24/2023 BASIC METAB OLIC PANEL calcium 9.8 mg/dL 8.4-10 .2 Not Available [facility] (Lab) [address] [place], [address], 11/24/2023 20:54:42 11/24/19 24 11/24/2023 LIPID PANEL cholesterol 236 mg/dL 140-19 9 high NIH KIMBERLEY NSUS RECOM MENDA TION FOR KILEY STERO L: ADULT CHILD LOW RISK: <200 <170 BORDE RLINE : <200- 239 ----- HIGH RISK: >240 >200 Not Available [facility] (Lab) [address] [place], [address], 11/24/2023 20:54:47 11/24/19 24 11/24/2023 LIPID PANEL triglyceride s 265 mg/dL 0-150 high NIH KIMBERLEY NSUS REPOR T RECOM MENDA TION FOR TRIGL YCERI YUE: ADULT CHILD LOW RISK: <150 ----- BODER LINE: 150-1 99 ----- HIGH RISK: >200 ----- Not Available [facility] (Lab) [address] [place], [address], 11/24/2023 20:54:47 11/24/19 24 11/24/2023 LIPID PANEL HDL cholesterol 55 mg/dL 40- Not Available [facility] (Lab) [address] [place], [address], 11/24/2023 20:54:47 11/24/19 24 11/24/2023 LIPID PANEL [...] WILL NOT BE REPOR FUNMILAYO. Not Available [facility] (Lab) [address] [place], [address], 11/24/2023 20:54:47 11/24/19 24 11/24/2023 HEPAT IC/LI ADILENE PANEL alkaline phosphatase 113 U/L 38-126 Not Available [facility] (Lab) [address] [place], [address], 11/24/2023 20:54:48 02/07/20 24 11/24/2023 HEPAT IC/LI ADILENE PANEL alanine aminotransfe rase 69 U/L 0-35 high Not Available [facility] (Lab) [address] [place], [address], 11/24/2023 20:54:48 11/24/19 24 11/24/2023 HEPAT IC/LI ADILENE PANEL aspartate aminotransfe rase 72 U/L 15-37 high Not Available [facility] (Lab) [address] [place], [address], 11/24/2023 20:54:48 11/24/19 24 11/24/2023 HEPAT IC/LI ADILENE PANEL bilirubin, total 0.80 mg/dL 0.20-1 .30 Not Available [facility] (Lab) [address] [place], [address], 11/24/2023 20:54:48 11/24/19 24 11/24/2023 HEPAT IC/LI ADILENE PANEL bilirubin, conjugated (direct) 0.00 mg/dL 0.00-0 .30 Not Available [facility] (Lab) [address] [place], [address], 11/24/2023 20:54:48 11/24/19 24 11/24/2023 HEPAT IC/LI ADILENE PANEL biliurubin,u ncong. (indirect) 0.40 mg/dL 0.00-1 .1 Not Available [facility] (Lab) [address] [place], [address], 11/24/2023 20:54:48 11/24/19 24 11/24/2023 HEPAT IC/LI ADILENE PANEL total protein 7.2 g/dL 6.3-8. 2 Not Available [facility] (Lab) [address] [place], [address], 11/24/2023 20:54:48 11/24/19 24 11/24/2023 HEPAT IC/LI ADILENE PANEL albumin 4.0 g/dL 3.4-5. 0 Not Available [facility] (Lab) [address] [place], [address], 11/24/2023 20:54:48 11/24/19 24 11/24/2023 HEPAT IC/LI ADILENE PANEL globulin 3.2 g/dL 2.6-4. 2 Not Available [facility] (Lab) [address] [place], [address], 11/24/2023 20:54:48 11/24/19 24 11/24/2023 HEPAT IC/LI ADILENE PANEL A/G ratio 1.3 ratio 1.0-2. 0 Not Available [facility] (Lab) [address] [place], [address], 11/24/2023 20:54:48 11/24/19 24 11/24/2023 TSH thyroid-stim ulating hormone 5.840 uIU/m L 0.465- 4.680 high Not Available [facility] (Lab) [address] [place], [address], 11/24/2023 20:55:12 11/24/19 24 11/24/2023 HEMOG LOBIN A1C HA1C 9.3 % 4.0-6. 0 high Diabe diandra Scree lucía Crite gigi: <5.7% Consi stent with absen ce of diabe diandra 5.7-6 .4% Consi stent with incre ased risk for diabe diandra (pred iabet es) >OR=6 .5% Consi stent with diabe diandra REFER ENCE: Diabe diandra Care 2016, 39(Javier ppl.1 ):s13 -s22 Not Available [facility] (Lab) [address] [place], [address], 11/24/2023 21:49:51 08/02/20 23 08/02/2023 XR, lumba r spine No observ ation record ed. [email or web address] [place] [id number] [facility] [address], [place], [address], 08/04/2023 17:42:41 08/23/20 23 08/23/2023 MAMMO , scree lucía, digit al, bilat eral [facility] [address] [facility] [address], [place] [address] Patien t Name: TRUMAN TOPETE Access ion #: [id number] Sex: F : 1964 3 Dictat ed By: Brittany Devi Attend ing Physic bee: BRYON LYNN Orderi ng Physic bee: BRYON LYNN Exam Date: 2022 06:48 AM Exam Name: MG SCRN BREAST ADALI BILAT Admitt ing Diagno sis(es [...] at 2022 10:10: 32 AM Page 1 [facility] [address], [place], [address], 09/20/2023 08:16:44 08/25/2008/02/2024 US, echoc ardio gram, trans thora cic, compl ete No observ ation record ed. BARCODE Not Available 2023 10:35:52 08/25/20 24 07/31/2024 NM, myoca rdial perfu amarjit scan No observ ation record ed. BARCODE Not Available 2023 10:35:53 02/14/2002/12/2025 compl ete PFT w/ post cox branson hodil ator davin metry * No observ ation record ed. BARCODE [facility] ([facility]) [address] [place], [address], 02/13/2025 09:44:26 Result Notes Documentation Provider Name and Address Organization Details Recorded Time Mammo, Screening, Digital, Bilateral : [facility] [id number] Patient Name: TRUMAN TOPETE Sex: F : [...] Benign Page 1 Peri Taylor MD [address] [facility], [place], [address], abeo 09/20/2023 08:16:44 Problems Name Problem SNOMED Code Status Onset Date Resolution Date Notes Provider Name and Address Organization Details Recorded Time Hyperglycem ia due to type 2 diabetes mellitus 9052149745844 09 Active 2022 ARAM Kessler [address], [address], [place], [address], abeo 3 10:15:24 Urinary incontinenc e 440524956 Active 2022 ARAM Kessler [address], [address], [place], [address], abeo 3 10:16:00 Obesity 819045192 Active 2022 ARAM Kessler [address], [address], [place], [address], abeo 3 10:23:41 Fibromyalgi a 015389372 Active 2022 ARAM Kessler [address], [address], [place], [address], abeo 3 10:32:01 Hyperlipide sanna 67876864 Active 2022 ARAM Kessler [address], [address], [place], [address], abeo 3 09:45:03 Non-alcohol ic fatty liver 555657472 Active 2022 ARAM Kessler [address], [address], [place], [address], abeo 3 09:46:46 Hearing loss 43319593 Active 2022 ARAM Kessler [address], [address], [place], [address], abeo 3 12:50:21 Anxiety disorder 357548924 Active 2022 AARM Kessler [address] [facility], [place], [address], [employer] [facility] [employer] 3 10:51:52 Vitamin D deficiency 25488112 Active 2023 Peri Taylor MD [address] [facility], [facility] [address], [place], [address], [employer] 4 09:43:35 Dyspnea on exertion 85791835 Active 2024 Andrzej Fritz MD [address] [facility], [facility] [address], [place], [address], [facility] [employer] [facility] [employer] 5 09:13:48 Notes:Medical History: Marij uana use Anxiety/Depression Bilateral hearing loss Rhinitis IgE 12 IU/mL Eosinophils 70/uL Obesity Hypertension Mixed hyperlipidemia T2DM Severe Atrial fibrillation NAFLD Urge urinary incontinence Vit D insufficiency Lumbar spondylosis Fibromyalgia Procedure History: [facility] 1990 Occupational History: [id number] Problem Notes None recorded. Procedures Surgical History Date Name Laterality Status Provider Name and Address Organization Details Recorded Time Hysterectomy completed Tanja Vargas RN [facility] [email or web address] [facility] 01/28/2023 10:04:10 Imaging Results None recorded. Procedure Notes None recorded. Medical Equipment None Reported. Allergies Allergen ID Allergen Name Allergen Category Reaction Reaction Severity Criticality Documentation Date Start Date Code Code System Note Provider Name and Address Organization Details Recorded Time 70944 fentanyl medicatio n Not available Not available Not available 01/28/2023 4337 RxNorm Tanja Vargas RN [facility], [facility] [email or web address] [facility] 3 10:04:27 Medications Name Sig Start Date [...] completed Not Available Not Available Not Available [employer] Ultra Test strips USE STRIP TO CHECK [...] e 50 mcg/actua tion nasal spray,francy pension [place] 1 spray every day by intranas al [...] Available Not Available No t Available Afluria 1232-2632 (PF) 45 mcg(15 mcg x 3)/0.5 mL [...] Available Not Available Vitals Date Recorded Systolic And Diastolic Provider Name and Address Organization Details Last Updated DateTime 11/24/2023 140/78 mm[Hg] Peri Taylor MD [address], [address], [place], [address], [facility] [employer] [facility] 11/24/2023 09:47:30 Date Recorded Body height Body mass index (BMI) Body weight Body temperature Heart rate Oxygen saturation Oxygen saturation in Arterial blood by Pulse oximetry Provider Name and Address Organization Details Last Updated DateTime 4 154.94 cm 40.4 kg/m2 15417.7 7 g 97.6 [degF] 93 /min 95 % 95 % Roger Sanchez RN [facility] [employer] [facility] 4 09:21:38 Date Recorded Heart rate Heart rate Respiratory rate Provider Name and Address Organization Details Last Updated DateTime 02/14/2025 87 /min 87 /min 14 /min Andrzej Fritz MD [address], [address], [place], [address], [facility] [employer] [facility] 02/14/2025 09:40:30 Date Recorded Body height Body mass index (BMI) Body weight Body temperature Oxygen saturation Oxygen saturation in Arterial blood by Pulse oximetry Systolic And Diastolic Provider Name and Address Organization Details Last Updated DateTime 5 154.94 cm 35.5 kg/m2 81097.3 7 g 97.6 [degF] 97 % 97 % 118/76 mm[Hg] Bia George MA [facility] [employer] [facility] 5 09:35:57 Date Recorded Body height Body mass index (BMI) Body weight Body temperature Heart rate Oxygen saturation Oxygen saturation in Arterial blood by Pulse oximetry Systolic And Diastolic Provider Name and Address Organization Details Last Updated DateTime 3 154.94 cm 40.8 kg/m2 54265.9 5 g 98.7 [degF] 96 /min 98 % 98 % 154/86 mm[Hg] Roger Sanchez RN [facility] [employer] [facility] 3 09:03:24 Date Recorded Heart rate Respiratory rate Provider N dereje and Address Organization Details Last Updated DateTime 08/24/2024 77 /min 15 /min Andrzej Fritz MD [address] [place] [address], [address], [facility] [employer] [facility] 08/24/2024 13:57:05 Date Recorded Body height Body mass index (BMI) Body weight Body temperature Heart rate Oxygen saturation Oxygen saturation in Arterial blood by Pulse oximetry Systolic And Diastolic Provider Name and Address Organization Details Last Updated DateTime 4 154.94 cm 37.2 kg/m2 77531.7 g 98.2 [degF] 77 /min 99 % 99 % 126/76 mm[Hg] Bia George MA [facility] [employer] [facility] 4 12:53:30 Date Recorded Body height Body mass index (BMI) Body weight Body temperature Heart rate Oxygen saturation Oxygen saturation in Arterial blood by Pulse oximetry Systolic And Diastolic Provider Name and Address Organization Details Last Updated DateTime 3 154.94 cm 40.6 kg/m2 51194.3 6 g 97.5 [degF] 93 /min 95 % 95 % 140/78 mm[Hg] Roger Sanchez RN [facility] [employer] [facility] 3 08:09:43 Social History Question Answer Notes LastModified by Organizat ion Details LastModified Time Tobacco Smoking Status Never Smoker Tanja Vargas RN [facility], [facility] [employer] [facility] 01/28/2023 10:03:23 What Is Your Level Of [...] anxious, or unable to sleep at night)? [id number] Information not available 02/19/2023 Family History Relationship Description Onset Age of this Age Resolved Age Notes LastModified by Organization Details LastModified Time Sister Cerebrovascu lar accident Not available 11/2023 17:14:07 Sister Glaucoma Not available 1 10/24/2023 13:11:06 Sister Tinnitus Not available 10/24/2023 [...] SNOMED-CT Code Diagnosis ICD10 Code Diagnosis Note [id number] ARAM Kessler [facility] [address] [place] [address] 01/28/2023 09:52:48 01/28/2023 10:39:24 Hyperglycemia due to type 2 diabetes mellitus 9895706831 31338 E11.65 Unknown statusLike ly poorly controlled based on pts blood sugar log.Discus sed need for regular exercise, increase intake of water/vege tables/fib er. Decrease intake of carbs, especially white rice/pasta /flour/donavon ad/sugar.A dvised to continue with metformin and glimepirid e pending lab results. Discussed with pt that GI sx with metformin are likely d/t poor diet. Urinary incontinence 165 106011 R32 ChronicKee p upcoming appt with urologist at [facility]. Headache 48140865 R51.9 Chronic, s/p fall several months ago.Right [...] for MRI head w/o contrast. Pt prefers [facility] imaging Pain of ear [id number] H9 2.09 RecurrentB ilateralMo d erythema bilat EACs.Head pain is likely to be cause of ear pain, not the other way around.Elton l refer to ENT for further evaluation /tx. Start ear gtts and nose spray in the meantime. Obesity 607073757 E66.9 Advised eat 3 meals daily with 1-2 healthy snacks, eliminate caloric drinks, no grazing btw meals, reduce packaged foods, portion control, modificati on of cooking style, low fat/low sugar items, 30 minutes of exercise at least 3x/week, reduce emotional/ stress eating, increase fruits/veg etables, take 15-20 minutes to eat. Thyroid di sorder screening [id number] Z13.29 Fibromyalgia 282777579 M 79.7 Pt reports dx, no supporting documentat ion available. Will refer to Dr. Magda Willingham to be evaluated for possible medical marijuana. [id number] Peri Taylor MD [facility] [address] [place] [address] 02/19/2023 09:26:17 02/19/2023 10:22:16 Hyperglycemia due to type 2 diabetes mellitus [id number] 36452 E11.65 KnfrknuG8C 6.8 (01/28/23)S table with metformin and glimepirid e; however, pt c/o metformin causes her GI issues and dizziness. Discussed need for regular exercise, increase intake of water/vege tables/fib er. Decrease intake of carbs, especially white rice/pasta /flour/donavon ad/sugar.W ill discontinu e metformin d/t GI upset and dizziness. Will increase glimepirid e to 2mg BID. Hyperlipidemia 79425321 E78.5 New finding on labstotal 238, trigs 178, ldl 138 (01/28/23)D iscussed need for regular exercise, increase intake of water/vege tables/fib er. Decrease the amount of greasy/fat ty/fried foods in diet. Consider/s tart taking a daily fish oil supplement .Start atorvastat in 20mg daily per ADA guidelines Non-alcoho lic fatty liver 125536240 K76.0 Chronicalt 43/alt 51 (01/28/23)C ontinue to work on diet/exerc ise to prevent worsening. [id number] ARAM Kessler [facility] [place] [address] [facility] [address] [place] [address] 03/19/2023 10:17:48 03/19/2023 11:11:09 Pain of left shoulder joint [id number] 6403388 M25.512 New problemSta rt OTC NSAIDs. Ok to combine w/Tylenol. Try Biofreeze, ice, rest, and home stretching as discussed. Will update with XR results, consider MRI if appropriat e. Hyperglyce sanna due to type 2 diabetes mellitus [id number] 52570 E11.65 EzhcmroR3I 6.8 (01/28/23)S table with metformin and glimepirid e; however, pt c/o metformin causes her GI issues and dizziness. Discussed need for regular exercise, increase intake of water/vege tables/fib er. Decrease intake of carbs, especially white rice/pasta /flour/donavon ad/sugar.D iscontinue d metformin d/t GI upset and dizziness. Continue glimepirid e 2mg BID. Headache 39850396 R51.9 Chronic, s/p fall several months ago.Right [...] on topiramate 25mg BID Urinary incontinence 165 704437 R32 ChronicKee p upcoming appt with urologist at [facility].Continue oxybutynin 10mg daily Pain of ear 220851744 H9 2.09 RecurrentB ilateralHe ad pain is likely to be cause of ear pain, not the other way around.Ref erred to ENT for further evaluation /tx, continue ear gtts and nose spray in the meantime. Fibromyalgia 760378700 M 79.7 Pt reports dx, no supporting documentat ion available. Referred to Dr. Magda Willingham to be evaluated for possible medical marijuana. Pt advised to increase duloxetine to 60mg BID Obesity 526049245 E66.9 Advised eat 3 meals daily with 1-2 healthy snacks, eliminate caloric drinks, no grazing btw meals, reduce packaged foods, portion control, modificati on of cooking style, low fat/low sugar items, 30 minutes of exercise at least 3x/week, reduce emotional/ stress eating, increase fruits/veg etables, take 15-20 minutes to eat. [id number] [facility] [address] [address] 04/16/2023 09:41:42 04/16/2023 10:27:13 Postmenopausal state 31070248 Z78.0 04/16/23 Symptoms continue. Will start 40mg BID. F/u in 1 month Edema of l ower extremity 953718443 R60.0 increase water intake, take rest periods through the day to elevate feet, continue to limit sodium intake Fibromyalgia 059191777 M 79.7 04/16/23 stable with use of ibuprofen. Paper for parking placard completed today. Pt reports dx, no supporting documentat ion available. Referred to Dr. Magda Willingham to be evaluated for possible medical marijuana. Pt advised to increase duloxetine to 60mg BID [id number] WAGNER Kessler[address] [address] 05/14/2023 10:24:44 05/14/2023 11:01:44 Postmenopausal state 01975680 Z78.0 ChronicPt stopped taking duloxetine as directed. Encouraged pt to reconsider resumption to manage menopausal flushing and fibromyalg ia. Edema of l ower extremity 798609566 R60.0 Recurrenti ncrease water intake, take rest periods through the day to elevate feet, continue to limit sodium intake. Fibromyalgia 584222954 M 79.7 ChronicPt reports dx, no supporting documentat ion available. Previously referred to Dr. Magda Willingham to be evaluated for possible medical marijuana. Pt encouraged to reconsider taking duloxetine for sx and menopausal flushing. Hyperglyce sanna due to type 2 diabetes mellitus 1551773470 89574 E11.65 JaqnqbjJ3S 6.8 (01/28/23)W as stable with combinatio n of metformin and glimepirid e; however, pt c/o metformin causes her GI issues and dizziness. Discussed need for regular exercise, increase intake of water/vege tables/fib er. Decrease intake of carbs, especially white rice/pasta /flour/donavon ad/sugar.D iscontinue d metformin d/t GI upset and dizziness. Increase Glimepirid e to 4mg BID [id number] Peri Taylor MD [facility] David antoni [address] [facility] [address] [facility] [place] [address] 06/15/2023 09:13:49 06/15/2023 09:50:01 Fall W19.XXXD RecurrentW ill decrease glimepirid e dosage and order shower chair/grab bars to reduce risk of falls.Pt advised to continue to track blood sugars closely. Hyperglyce sanna due to type 2 diabetes mellitus 0704118034 38203 E11.65 NfnzfpoV2W 6.8 (01/28/23)W as stable with combinatio n [...] log, sx resolve with calorie count btw 6350-6116. Previously discontinu ed metformin d/t GI upset and dizziness. Decrease Glimepirid e to 2mg BIDContinu e Trulicity 0.75mg weekly Obesity 672315671 E66.9 ChronicRev iewed pts food/blood sugar diary. Pt still consuming a lot of carbs. Pt also often not consuming enough calories. Advised pt that she needs to try to keep calorie count around 6773-8101 per day. Discussed that consuming too few calories is as detrimenta l as consuming too many. Dizziness 311997155 R42 RecurrentP t previously c/o having dizziness [...] log, sx resolve with calorie count btw 2545-2351. [id number] Peri Taylor MD [facility] [address] [place] [address] 06/29/2023 10:04:15 06/29/2023 13:36:10 Hyperglycemia due to type 2 diabetes mellitus 1941063831 58825 E11.65 JgcdennE3S 6.8 (01/28/23); 12.3Was stable with combinatio n of metformin and glimepirid e; however, pt c/o metformin causing her GI issues (nausea/vo miting) and dizziness. Was still experienci ng dizziness/ falls with glimepirid e and Trulicity. Will discontinu e Trulicity per patient request.Re sume glimepirid e 4mg BIDAdd on Janumet 50mg-1000m g daily, will likely need PA. Anxiety disorder 3578531 06 F41.9 ChronicNot well controlled off meds. [...] --RTO 4 weeks for f/u on medication [id number] Peri Taylor MD [facility] [address] [place] [address] 08/11/2023 08:51:14 08/11/2023 09:34:26 Primary fibromyalgia syndrome 22962076 M79.7 M47.896 has failed duloxetine , tramadol, gabapentin Hyperglyce sanna due to type 2 diabetes mellitus 2207964327 80717 E11.65 improved per home readingsco ntinue current medication plan repeat labs in 3 months [id number] Peri Taylor MD [facility] [place] [facility] [address] [facility] [address] [place] [address] 09/20/2023 08:05:01 09/20/2023 08:26:56 Low back pain 091347981 M54.50 has persistent pain for 8+ weeks after weekshas weakness and pain that radiates down buttocksxr ay shows arthritis and degenerati ve disk diseasePT referral givenf/u in 6 weeks or sooner if needed [id number] Peri Taylor MD [facility] [place] [facility] [address] [facility] [address] [place] [address] 11/24/2023 09:14:29 11/24/2023 09:55:42 Hyperglycemia due to type 2 diabetes mellitus 0672375274 92899 E11.65 not in good control per home readingsco ntinue current medication check labs today Hyperlipidemia 19861144 E78.5 Z79.899 Fatigue 09611667 R53.83 Vitamin D deficiency 347 55339 E55.9 Low back pain 248793837 M54.50 has persistent pain for 8+ weeks after weekshas weakness and pain that radiates down buttocksxr ay shows arthritis and degenerati ve disk diseasePT referral givenf/u in 6 weeks or sooner if needed improved Anxiety disorder 5837762 06 F41.9 Primary fi bromyalgia syndrome 03849563 M79.7 M47.896 has failed duloxetine , tramadol, gabapentin [id number] Andrzej Fritz MD [facility] [place] [address] 08/24/2024 12:13:45 10/16/2024 09:34:23 Dyspnea on exertion 15814735 R06.09 R05.9 T78.40XA [id number] Andrzej Fritz MD [facility] [place] [address] [place] [address] 02/14/2025 09:05:06 02/16/2025 12:07:47 Dyspnea on exertion 42785846 R06.09 R05.9 Health Concerns Section Related Observation LastModified by Organization Omar ls LastModified Time None Recorded Concern Status LastModified by Organization Details LastModified Time None Recorded Advance Directives Directive None Recorded Payers Insurance Date Sequence Insurance Name Policy Number Policy Silva Covered Member ID Silva Member ID Guarantor Name 02/16/2025 1 [facility] (MEDICAID HMO) [id number] Truman Linder Ronald [id number] [facility] Notes Date Note Type Note Provider Name [...] spondylosis in lumbar spine. Peri Taylor MD [address] [facility], [place] [address], [place], [address], abeo 08/16/2023 13:11:31 09/20/2023 text/html Here for f/u, [...] get out of bed. Peri Taylor MD [address] [facility], [facility] [address], [place], [address], abeo 09/20/2023 08:23:35 11/24/2023 text/html Here for f/u, [...] very stressed. +fatigue Peri Taylor MD [address] [facility], [facility] [address], [place], [address], [facility] [employer] [facility] 12/16/2023 18:12:10 08/24/2024 text/html Primary care/Referring provider: [...] walking Alleviating factors: rest [employer] [place] (mMRC) Dyspnea Scale - Grade 2 Grade [...] Edema: no Environmental exposures: Nicotine smoke: no [place]: no Dye: no Dust mites: yes Mold: no Damp basement: no Wood burning stove: no Animal dander: dogs Cockroaches: no Pollen: yes Arsenic: no Asbestos: no Beryllium: no Cadmium: no Chromium: no Gillespie smoke: no Diesel fumes: no Nickel: no [...] no chance of dozing. Andrzej Fritz MD [address] [place] [address], [address], [place] [facility] [place] [employer] [facility] 08/24/2024 15:24:39 02/14/2025 text/html Primary care/Referring provider: [...] factors: walkingAlleviating factors: rest Modified [employer] [place] (mMRC) Dyspnea Scale - Grade 2Grade 0 [...] slight chance of dozing. Andrzej Fritz MD [address] [place] [address], [place], [address], [place] [facility] 02/14/2025 09:53:03 OBGyn Episode No OBEpisode recorded.
--- OUTSIDE RECORDS SUMMARY | 2025-05-01 01:07 | XMS_ITS | Clinical Summary ---
Author Organization [facility] Address [address], [address] [address] Phone Care Team Providers Care Relocation Associate Name Role Phone Aaron Hopkins DO Unavailable [phone] Jenaro Kevin MD Primary Care Provider [phone] Medications polyethylene glycol (MIRALAX) Powder Use entire 255g bottle with 64oz of clear liquid as directed for colonoscopy prep. 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
--- OUTSIDE RECORDS SUMMARY | 2025-05-01 01:07 | XMS_ITS | Continuity of Care Document ---
Author Organization [facility] Address [address] [place] [address] [place] [address] Phone Care Team Providers Care Sponge Hooker Name Role Phone Taco Gavin MD Unavailable Unavailable Allergies, Adverse Reactions, Alerts Substance Reaction Status Criticality fentanyl Orthostatic hypotension(severe) Active No Information Medications Medication Instructions Dosage Effective Dates (start - stop) Status Comments hydrocodone 7.5 mg-acetaminophen 325 mg tablet take 1 tablet by oral route every day as needed for pain as needed 1 tablet - Active PRN for pain, avoid driving or operate machines Xanax 0.5 mg tablet take 1 tablet by oral route every day as needed 0.5 MG - Active PRN for anxiety, avoid driving or operate machines Lantus Solostar U-100 Insulin 100 unit/mL (3 mL) subcutaneous pen inject by subcutaneous route as per insulin protocol 0.00 - Active 70 units SC daily albuterol sulfate HFA 90 mcg/actuation aerosol inhaler inhale 1 puff by inhalation route every 4 - 6 hours as needed as needed 1 puff - Active PRN for sob metformin 500 mg tablet take 1 tablet by oral route 2 times every day with morning and evening meals 500 MG - Active Januvia 100 mg tablet take 1 tablet by oral route every day 100 MG - Active glimepiride 4 mg tablet take 1 tablet by oral route 2 times every day 4 MG - Active oxybutynin chloride ER 10 mg tablet,extended release 24 hr take 1 tablet by oral route every day 10 MG - Active Cymbalta 60 mg capsule,delayed release take 1 capsule by oral route every day 60 MG - Active Toprol XL 25 mg tablet,extended release take 1 tablet by oral route every day 25 MG - Active rosuvastatin 20 mg tablet take 1 tablet by oral route every day 20 MG - Active lisinopril 5 mg tablet take 1 tablet by oral route every day 5 MG - Active Pen Needle 29 gauge [...] Copied on Encounter OFFICE/OUTPA TIENT VISIT, EST [facility], [address], [place], [id number], tel:[phone] [facility] Medicine pain (chief complaint) anxiety1 (chief complaint) (chief complaint) FibromyalgiaNonrheu matic aortic (valve) stenosisGeneralized Anxiety DisorderEncounter for screening for malignant neoplasm of colon 5 Romaine España. [address] [place], [place], [address] , [place]. tel:[phone] OFFICE/OUTPA TIENT VISIT, [facility], [address], [place], [place], [address], [place] tel:[phone] [facility] pain (chief complaint) anxiety1 (chief complaint) aortic stenosis1 (chief complaint) ear pain1 (chief complaint) FibromyalgiaGeneral ized Anxiety DisorderNonrheumati c aortic (valve) stenosisDiffuse otitis externa, right ear [place]-0 5 Gavin Taco. [address], [place], [place], [address] , [place]. tel:[phone] OFFICE/OUTPA TIENT VISIT, [facility], [address], [place], [place], [address], [place] tel:[phone] [facility] pain (chief complaint) anxiety1 (chief complaint) sob1 (chief complaint) DM (chief complaint) Nonrheumatic aortic (valve) stenosisGeneralized Anxiety DisorderType 2 diabetes mellitus without complicationsFibrom yalgia February-0 5 Gavin Taco. [address], [place], [place], [address] , [place]. tel:[phone] OFFICE/OUTPA TIENT VISIT, [facility], [address], [place], [place], [address], [place] tel:[phone] [facility] DM (chief complaint) anxiety1 (chief complaint) pain (chief complaint) sob (chief complaint) FibromyalgiaGeneral ized Anxiety DisorderType 2 diabetes mellitus without complicationsShortn ess of breathCardiac murmurMixed incontinence Jan-0 5 Gavin Taco. [address], [place], [place], [address] , [place]. tel:[phone] OFFICE/OUTPA TIENT VISIT, [facility], [address], [place], [place], [address], [place] tel:[phone] [facility] DM (chief complaint) HLP (chief complaint) LFT (chief complaint) HH (chief complaint) Type 2 diabetes mellitus without complicationsFibrom yalgiaGeneralized Anxiety DisorderMixed hyperlipidemiaHashi pradeep's thyroiditisFatty liverSecondary polycythemia 5 Romaine España. [address], [place], [place], [address] , [place]. tel:[phone] OFFICE/OUTPA TIENT VISIT, [facility], [address] [place], [address], [place] tel:[phone] [facility] anxiety1 (chief complaint) pain (chief complaint) OAB (chief complaint) DM (chief complaint) weight loss1 (chief complaint) Type 2 diabetes mellitus without complicationsFibrom yalgiaOveractive bladderGeneralized Anxiety DisorderAbnormal weight loss 5 Romaine Gudino [address], [place], [place], [address] , [place]. tel:[phone] OFFICE/OUTPA TIENT VISIT, [facility], [address], [address], [place] tel:[phone] [facility] COVID1 (chief complaint) Viral infection 5 Romaine Gudino [address], [place], [place], [address] , [place]. tel:[phone] OFFICE/OUTPA TIENT VISIT, [facility], [address] [place], [address], [place] tel:[phone] [facility] anxiety1 (chief complaint) pain (chief complaint) DM (chief complaint) FibromyalgiaGeneral ized Anxiety DisorderType 2 diabetes mellitus [address] complicationsEncoun ter for oth screening for malignant neoplasm of breast 5 Romaine España. [address], [place], [place], [address] , [place]. tel:[phone] OFFICE/OUTPA TIENT VISIT, [facility], [address] [place], [address], [place] tel:[phone] [facility] anxiety1 (chief complaint) DM (chief complaint) pain (chief complaint) OAB (chief complaint) Generalized Anxiety DisorderOveractive bladderFibromyalgia Type 2 diabetes mellitus without complications Sep-0 4 Romaine España. [address], [place], [place], [address] , [place]. tel:[phone] OFFICE/OUTPA TIENT VISIT, [facility], [address], [address], [place] tel:[phone] [facility] anxiety1 (chief complaint) pain (chief complaint) dyspnea1 (chief complaint) Generalized Anxiety DisorderFibromyalgi aDyspneaChest pain Aug- 4 Romaine España. [address], [place], [address] , [place]. tel:[phone] OFFICE/OUTPA TIENT VISIT, [facility], [address] [place], [address], [place] tel:[phone] [facility] anxiety1 (chief complaint) fibromyalg ia1 (chief complaint) FibromyalgiaGeneral ized Anxiety Disorder Jul- 4 Romaine España. [address], [place], [place], [address] , [place]. tel:[phone] OFFICE/OUTPA TIENT VISIT, [facility], [address] [place], [address], [place] [phone] [facility] anxiety1 (chief complaint) pain (chief complaint) OAB1 (chief complaint) chest pain1 (chief complaint) DM (chief complaint) DyspneaChest painOveractive bladderGeneralized Anxiety DisorderFibromyalgi aType 2 diabetes mellitus without complications 4 Romaine España. [address], [place], [place], [address] , [place]. tel:[phone] OFFICE/OUTPA TIENT VISIT, [facility], [address], [place], [place], [address], [place] tel:[phone] [facility] pain (chief complaint) anxiety1 (chief complaint) DM (chief complaint) FibromyalgiaGeneral ized Anxiety DisorderType 2 diabetes mellitus without complicationsCardia c murmurOther specified disorder of bone density 4 Romaine España. [address], [place], [place], [address] , [place]. tel: [phone] OFFICE/OUTPA TIENT VISIT, [facility], [address], [place], [place], [address], [place] tel:[phone] [facility] DM (chief complaint) HTN (chief complaint) HLP (chief complaint) pain (chief complaint) anxiety1 (chief complaint) Generalized Anxiety DisorderFibromyalgi aEssential (primary) hypertensionType 2 diabetes mellitus without complicationsMixed hyperlipidemiaHashi pradeep's thyroiditis 4 Romaine Gudino [address], [place], [place], [address] , [place]. tel: [phone] [facility], [address], [place], [place], [address], [place] tel:[phone] [facility] No Information 4 Romaine Gudino [address], [place], [place], [address] , [place]. tel: [phone] OFFICE/OUTPA TIENT VISIT, [facility], [address], [place], [place], [address], [place] tel:[phone] [facility] pain (chief complaint) anxiety1 (chief complaint) DM (chief complaint) HTN (chief complaint) Type 2 diabetes mellitus without complicationsEssent ial (primary) hypertensionFibromy algiaGeneralized Anxiety DisorderEncounter for screening for malignant neoplasm of colon 4 Romaine España. [address], [place], [place], [address] , [place]. tel:[phone] OFFICE/OUTPA TIENT VISIT, [facility], [address], [place], [place], [address], [place] tel:[phone] [facility] DM (chief complaint) HLP (chief complaint) liver1 (chief complaint) polycythem ia1 (chief complaint) Fatty liverMixed hyperlipidemiaType 2 diabetes mellitus without complicationsSecond marcia polycythemiaHypothy roidism 4 Romaine España. [address], [place], [place], [address] , [place]. tel:[phone] OFFICE/OUTPA TIENT VISIT, [facility], [address], [place], [place], [address], [place] tel:[phone] [facility] DM (chief complaint) HLP (chief complaint) thyroid1 (chief complaint) pain (chief complaint) anxiety1 (chief complaint) FibromyalgiaMixed hyperlipidemiaType 2 diabetes mellitus without complicationsHypoth yroidismGeneralized Anxiety DisorderLiver diseaseOther specified disorder of bone density 4 Romaine España. [address], [place], [address] , [place]. tel:[phone] OFFICE/OUTPA TIENT VISIT, [facility], [address], [place], [place], [address], [place] tel:[phone] [facility] DM (chief complaint) HLP (chief complaint) back pain1 (chief complaint) FibromyalgiaMixed hyperlipidemiaType 2 diabetes mellitus without complications 4 Romaine España. [address], [place], [place], [address] , [place]. tel:[phone] OFFICE/OUTPA TIENT VISIT, [facility], [address], [place], [address], [place] tel:[phone] [facility] liver1 (chief complaint) HLP (chief complaint) thyroid1 (chief complaint) DM (chief complaint) back pain1 (chief complaint) Fatty liverMixed hyperlipidemiaType 2 diabetes mellitus without complicationsHypoth yroidismFibromyalgi a 4 Romaine España. [address], [place], [place], [address] , [place]. tel:[phone] OFFICE/OUTPA TIENT VISIT, [facility], [address], [place], [place], [address], [place] tel:[phone] [facility] HLP (chief complaint) DM (chief complaint) OAB (chief complaint) anxiety1 (chief complaint) fibromyalg ia1 (chief complaint) FibromyalgiaMixed hyperlipidemiaType 2 diabetes mellitus without complicationsGenera lized Anxiety DisorderOveractive bladder 4 Romaine España. [address] [place], [address] , [place]. tel:[phone] Family History Family Member Type Diagnosis Age At Onset Father Problem of fire accident Mother Problem Coronary artery disease (Cau se Of ) 75 Brother Problem of neck and throat [place] 6 4 Sister Problem Stroke (Cause Of ) 64 Payers Payer name Insurance type Covered green party ID Jordi alberts(s) [facility] [id number] Social History Type Description Quantity Date Captured Comments Alcohol Use Details Caffeine Use Details Unknown Tobacco Use Status Current non-smoker 25 Smoking Status Never smoker Sex Female Vital Signs Date / Time: Height Weight BMI Pulse Rate Blood Pressure Temperature Respiratory Rate Body Surface Area Head Circumference BMI percentile Pulse Ox Inhaled Ox 10:26 AM 61.00 in 185.80 lbs 35.1 1 kg/m eter (2) 83 /min 120/70 mm[Hg] 97.2 F 16 /min Chief Complaint And Reason For Visit From encounter dated '04/19/2025 10:19'. pain (chief complaint). Description: Pt has chronic [...] homicidal thought. Pt denies any crying spells (chief complaint). Description: pt has aortic stenosis. Pt has chronic sob and fatigue Ct surgeon told her that she needs to do NONA and cardiac cath fist before surgery Plan Of Treatment Date Type Action Status Referral Ordered: Cardiothoracic Surgery (related to Nonrheumatic aortic (valve) stenosis) ordered Referral Ordered: Referrals: Cardiothoracic Surgery. Evaluate and treat ordered Referral Referred To: Margarito Retana [address] [place] [address], [phone] Ordered: Referrals: Margarito Retana. Evaluate and treat ordered Referral Ordered: Kannan Mace -[facility] : Internal Medicine (related to Type 2 diabetes mellitus without complications) ordered Referral Referred To: Kannan Mace [address], [phone] Ordered: Referrals: [facility] Phys[facility] : Internal Medicine. Kannan Mace. Evaluate and treat ordered Referral Ordered: US THYROID ordered Referral Ordered: MAMMOGRAM, SCREENING ordered Referral Ordered: MANUEL ZELAYA -[facility] : Internal Medicine : Pulmonary Disease (related to Dyspnea) ordered Referral Ordered: Urology (related to Overactive bladder) ordered Referral Ordered: Referrals: Urology. Evaluate and treat ordered Referral Referred To: MANUEL ZELAYA [facility], [phone] Ordered: Referrals: [facility]opathic [facility] Osteopathic Physicians : Internal Medicine : Pulmonary Disease. MANUEL ZELAYA. Evaluate and treat ordered Referral Ordered: DXA BONE DENSITY, AXIAL ordered History Of Present Illness Encounter Date Complaint [...] homicidal thought. Pt denies any crying spells pt has aortic st enosis. Pt has chronic sob and fatigue Ct surgeon told her that she needs to do NONA and cardiac cath fist before surgery aortic stenosis1 Pt has severe a ortic [...] 70 units and her glucose is still [id number] DM Pt has DM Pt is on [...] any crying spells DM Pt has DM pt is on metformin, januvia and amaryl and lantus. Pt has been under a lot of stress and her glucose is on average around 400 for the past two weeks. pt feels slightly dizzy and fatigue pain Pt has chronic l ow back [...] she has dorian with urology in October anxiety1 Pt has chronic a nxiety and [...] any crying spells fibromyalgia1 Pt has fibromyal dnaiela .Pt is on norco higher dose which is helping Pt also started cymbalta which is helping as well anxiety1 Pt has chronic a nxiety Pt [...] states that her pain is getting worse OAB1 Pt has OAB and u rine incontinence Pt is on oxybutynin Pt wants to see urology. chest pain1 Pt has frequent chest pain and sob. Pt is seeing cardiology and she had negative echo and she will do stress test soon Pt is on toprol now case preparer and liner recommended her to see pulmonary ,Pt does feel exertional sob frequently. Pt denies any cough DM Pt has DM Pt griffin es lantus, metformin amaryl, Januvia and her glucose is around 120s. anxiety1 Pt has chronic a nxiety Pt [...] AMA Pt denies any recurrent chest pain pain Pt has chronic l ow back pain with sciatica and some upper leg numbness and tingling Pt had x ray done which showed DDD. Pt also has fibromyalgia. Pt takes norco PRN for pain Pt failed neurontin and lyrica. DM Pt has DM. Pt is on lantus 15 units daily and her glucose is around 100. Pt denies any hypoglycemia DM Pt has DM. Pt is on metformin, amaryl and Januvia and she started lantus 10 units and her glucose is down to 200 HTN Pt takes lisinop ril and her bp is stable HLP Pt has HLP Pt is on crestor .Her TG is high. Pt denies any myalgia pain Pt has chronic l ow back [...] takes xanax PRN only. Pt failed SSRIs pain Pt has chronic l ow back [...] any confusion, headache, vision change, polyuria ,polydipsia. HTN Pt has mild HTN Pt denies any chest pain or headache HLP Pt has HLP ,Pt i s on crestor .Pt denies any myalgia. her TC improved but TG is worse. Pt is not on any DM diet DM Pt has poorly co ntrolled DM. [...] Pt denies any abd pain or jaundice. polycythemia1 Pt has mild poly cythemia. Her iron and ferritin is pending DM Pt has DM pt griffin es metformin, januvia and amaryl ad her glucose is around 250s. Pt denies any polyuria polydipsia. Pt has been having persist diarrhea with trulicity. HLP Pt has HLP Pt ta kes crestor Pt denies any myalgia thyroid1 Pt has low thyro id Pt denies any dysphagia or neck pain . pain Pt has chronic l ow back [...] crying spells Pt takes xanax PRN only DM Pt is on metform in, amaryl and januvia and her glucose is still high. Pt states that trulicity caused her to have severe diarrhea. Pt states that her glucose is around 180s. Pt denies any polyuria, polydipsia. HLP Pt has not picke d up crestor yet. It needs to be approved which is done. Pt will pickle maker crestor today back pain1 Pt has chronic l ow back pain with sciatica and some upper leg numbness and tingling Pt had x ray done which showed DDD Pt never had MRI done Pt told me she had CT of L spine done early this year at [facility] but i can not find it. Pt could not pickle maker norco last month for unknown reason from pharmacy. Pt also has fibromyalgia back pain1 Pt has chronic l ow [...] spells Pt takes xanax 0.5 mg PRN. fibromyalgia1 Pt has fibromyal daniela and she has chronic low back and hip and leg pain and neuropathy. Pt takes norco PRN for pain. Pt failed neurontin and lyrica. Pt denies any loss of bowel or bladder control or saddle area paresthesia Instructions Date Instruction Additional Infor erasmo No Information Assessments Type Assessment Date assessment Fibromyalgia assessment Nonrheumatic aortic (valve) sten osis assessment Generalized Anxiety Disorder Apr assessment Encounter for screening for una gnant neoplasm of colon Mental Status Date Cognitive Assessment Orientation - [place] ed to time, place, person, situation.
--- NOTE | 2025-05-01 07:00 | ECHO_ITS ---
Patient Info Name: [facility] Age: 60 years : 1965 Gender: Female Ht: 61 in Wt: 170 lbs BSA: 1.85 m2 HR: 77 bpm BP: 118 / 69 mmHg Heart Rhythm: Sinus Rhythm Technical Quality: Good Exam Date: 05/01/2025 7:50 AM Patient Status: O Admit Date: 05/01/2025 Exam Type: CA echo transesophageal Complete two-dimensional, color flow and Doppler transesophageal study is performed. Hay Farmer: Sol Keene Attending Provider: Margarito Retana DO Summary 1. Transesophageal echocardiogram. 2. Left ventricular chamber dimension is normal. 3. Left ventricular systolic function is normal with an ejection fraction of 60-65% by visual estimation. 4. There is mild concentric increased left ventricular wall thickness. 5. The left ventricular diastolic function is indeterminate as it was not assessed. 6. Agitated saline injection opacified right side cardiac chambers with a few bubbles shunt to left side cardiac chambers suggestive of patent foramen ovale. 7. Severe lipomatous interatrial septum. 8. The aortic valve is bicuspid. 9. There is severe aortic valve sclerosis. 10. There is severe aortic valve stenosis with valve area of 0.7 cm2 by planimetry. Procedure Details Risks/benefits/alternative to NONA discuss with patient and she gave informed consent. She was monitored electrocardiographically, vitals. She was in normal rhythm at HR 70 bpm, BP 122/75 mmHg, pulse ox >95%. Cetacaine spray x 2 to posterior oropharynx. She was given 2 mg Versed IV for conscious sedation. She swallowed probe without incident. Agitated saline injection x1. Multiple images obtained. NONA probe withdrawn and no blood noted on probe tip. She tolerated procedure well with no complications. Left Ventricle Left ventricular chamber dimension is normal. Left ventricular systolic function is normal with an ejection fraction of 60-65% by visual estimation. There is mild concentric increased left ventricular wall thickness. The left ventricular diastolic function is indeterminate as it was not assessed. Transesophageal echocardiogram. Right Ventricle Right ventricular chamber dimension is normal. Right ventricular systolic function is normal. Left Atria Left atrial chamber dimension is normal. Right Atria Right atrial chamber dimension is normal. Atrial Septum Suspected patent foramen ovale visualized by 2D and agitated saline imaging. Agitated saline injection opacified right side cardiac chambers with a few bubbles shunt to left side cardiac chambers suggestive of patent foramen ovale. Severe lipomatous interatrial septum. Atrial Appendage There is no thrombus visualized in the left atrial appendage. Aortic Valve The aortic valve is bicuspid. There is severe aortic valve sclerosis. There is severe aortic valve stenosis with valve area of 0.7 cm2 by planimetry. There is no aortic valve regurgitation. Pulmonic Valve There is no pulmonic regurgitation. Mitral Valve There is no mitral valve stenosis. There is no mitral valve regurgitation. Tricuspid Valve There is no tricuspid valve regurgitation. Pericardium/Pleural There is no pericardial effusion. Inferior Vena Cava Inferior vena cava is not well visualized. Aorta The aortic root size at the sinus of Valsalva is normal. Tricuspid Valve Name Value Normal Estimated PAP/RSVP RA Pressure 5 mmHg <=5 Report Signatures
== END 2025-05-01 09:30 | disposition home or self-care (01) ==
PROVIDERS: PCP Emergency Medicine; Visit Provider Internal Medicine Cardiovascular Disease
PROC: (CPT 93312; principal; 2025-05-01 08:00)
DX: I35.0 Nonrheumatic aortic (valve) stenosis (principal); I35.8 Other nonrheumatic aortic valve disorders; Q23.81 Bicuspid aortic valve; E78.5 Hyperlipidemia, unspecified; D17.4 Benign lipomatous neoplasm of intrathoracic organs
CPT/HCPCS: 93312; 93320; 93325; J2250; J7040

== ENCOUNTER 2025-05-10 00:48 | Day surgery (SDC) | payer OTHER, SELFPAY ==
[2025-05-09 11:26] VITALS: BMI 32.5
[2025-05-10] VITALS (30 sets, daily range): BP systolic 121–175; BP diastolic 72–94; PULSE 77–88; RESP 12–20; TEMP 36.3; O2SAT 93–98; BMI 35.8
--- OUTSIDE RECORDS SUMMARY | 2025-05-10 00:51 | XMS_ITS | Clinical Summary ---
Author Organization [facility] Address [address], [address] [address] Phone Care Team Providers Care Foil Stamp Operator Name Role Phone Aaron Hopkins DO Unavailable [phone] Jenaro Kevin MD Primary Care Provider [phone] Medications polyethylene glycol (MIRALAX) Powder Use entire 255g bottle with 64oz of clear liquid as directed for colonoscopy prep. 255 g 0 6 Active Social History Tobacco Use Types Packs/Day Years Used Date Smoking Tobacco: Never Assessed Comments Unknown Sex and Gender Information Value Date Recorded Sex Assigned at Not on file Legal Sex Female 4:44 PM [employer]APER STRIP[employer] Gender Identity Not on file Sexual Orientation Not on file Plan of Treatment Health Maintenance Due Date Last Done Comments Hepatitis C Virus (HCV) Screening 1965 TdaP Immunization 1965 Pap Smear 1986 Cervical Cancer Screening (CCS) 1995 HPV/Cotest 1995 Cologuard 2010 Colonoscopy 2010 Colorectal Cancer Screening 2010 Immunochemical Fecal Occult Blood 2010 Pneumococcal Immunization (5 0+ years) (1 of 1 - PCV) 2015 Zoster Immunization (1 of 2) 2015 SARS-COV-2 Immunization ( - 2023-25 season) 2024 Influenza Immunization (#1) 2025 Respiratory Syncytial Virus (RSV) Immunization (Adult) (1 - 1-dose 75+ series) 2040 Hepatitis B Immunization Aged Out No longer eligible based on patient's age to complete this topic Human Papillomavirus (HPV) Immunization Aged Out No longer eligible b ased on patient's age to complete this topic Meningococcal Immunization (ACWY) Aged Out No longer eligible based on patient's age to complete this topic Rotavirus Immunization Aged Out No lo nger eligible based on patient's age to complete this topic Care Teams Foil Stamp Operator Relationship Specialty Start Date End Date Jenaro Kevin MD [address] [place] [address] PCP - General Internal Medicine 07/23/16 Aaron Hopkins DO Gastroenterology 07/23/16
--- OUTSIDE RECORDS SUMMARY | 2025-05-10 00:52 | XMS_ITS | Continuity of Care Document ---
Author Organization [facility] Address [address] [place] [address] [place] [address] Phone Care Team Providers Care Production Sorter Name Role Phone Taco Gavin MD Unavailable [...] for pain, avoid driving or operate machines albuterol sulfate HFA 90 mcg/actuation aerosol inhaler [...] 1 capsule by oral route every day - Active Toprol XL 25 mg tablet,extended [...] Copied on Encounter OFFICE/OUTPA TIENT VISIT, EST [facility], [address], [place], [id number], [place] tel:[phone] [facility] pain (chief complaint) anxiety1 (chief complaint) (chief complaint) FibromyalgiaNonrheu matic aortic (valve) stenosisGeneralized Anxiety DisorderEncounter for screening for malignant neoplasm of colon 5 Romaine España. [address], [place], [address] , [place]. tel:[phone] OFFICE/OUTPA TIENT VISIT, [facility], [address], [place], [place], [address], [place] tel:[phone] [facility] pain (chief complaint) anxiety1 (chief complaint) aortic stenosis1 (chief complaint) ear pain1 (chief complaint) FibromyalgiaGeneral ized Anxiety DisorderNonrheumati c aortic (valve) stenosisDiffuse otitis externa, right ear [place]- 5 Gavin Taco. [address], [place], [place], [address] , [place]. [phone] OFFICE/OUTPA TIENT VISIT, [facility], [address], [place], [place], [address], [place] tel:[phone] [facility] pain (chief complaint) anxiety1 (chief complaint) sob1 (chief complaint) DM (chief complaint) Nonrheumatic aortic (valve) stenosisGeneralized Anxiety DisorderType 2 diabetes mellitus without complicationsFibrom yalgia 5 Gavin Taco. [address], [place], [place], [address] , [place]. [phone] OFFICE/OUTPA TIENT VISIT, [facility], [address], [place], [place], [address], [place] tel:[phone] [facility] DM (chief complaint) anxiety1 (chief complaint) pain (chief complaint) sob (chief complaint) FibromyalgiaGeneral ized Anxiety DisorderType 2 diabetes mellitus without complicationsShortn ess of breathCardiac murmurMixed incontinence Jan-0 5 Gavin Taco. [address], [place], [place], [address] , [place]. [phone] OFFICE/OUTPA TIENT VISIT, [facility], [address], [place], [place], [address], [place] tel:[phone] [facility] DM (chief complaint) HLP (chief complaint) LFT (chief complaint) HH (chief complaint) Type 2 diabetes mellitus without complicationsFibrom yalgiaGeneralized Anxiety DisorderMixed hyperlipidemiaHashi pradeep's thyroiditisFatty liverSecondary polycythemia 5 Romaine Gudino [address], [place], [place], [address] , [place]. tel:[phone] OFFICE/OUTPA TIENT VISIT, [facility], [address] [place], [address], [place] [phone] [facility] anxiety1 (chief complaint) pain (chief complaint) OAB (chief complaint) DM (chief complaint) weight loss1 (chief complaint) Type 2 diabetes mellitus without complicationsFibrom yalgiaOveractive bladderGeneralized Anxiety DisorderAbnormal weight loss 5 Romaine Gudino [address], [place], [place], [address] , [place]. tel:[phone] OFFICE/OUTPA TIENT VISIT, [facility], [address] [place], [address], [place] tel:[phone] [facility] COVID1 (chief complaint) Viral infection 5 Romaine Gudino [address], [place], [place], [address] , [place]. tel:[phone] OFFICE/OUTPA TIENT VISIT, [facility], [address] [place], [address], [place] tel:[phone] [facility] anxiety1 (chief complaint) pain (chief complaint) DM (chief complaint) FibromyalgiaGeneral ized Anxiety DisorderType 2 diabetes mellitus without complicationsEncoun ter for oth screening for malignant neoplasm of breast 5 Romaine España. [address], [place], [place], [address] , [place]. tel:[phone] OFFICE/OUTPA TIENT VISIT, [facility], [address] [place], [address], [place] tel:[phone] [facility] anxiety1 (chief complaint) DM (chief complaint) pain (chief complaint) OAB (chief complaint) Generalized Anxiety DisorderOveractive bladderFibromyalgia Type 2 diabetes mellitus without complications 4 Romaine España. [address], [place], [place], [address] , [place]. tel:[phone] OFFICE/OUTPA TIENT VISIT, [facility], [address], [place], [place], [address], [place] tel:[phone] [facility] anxiety1 (chief complaint) pain (chief complaint) dyspnea1 (chief complaint) Generalized Anxiety DisorderFibromyalgi aDyspneaChest pain Aug- 4 Romaine España. [address], [place], [place], [address] , [place]. tel:[phone] OFFICE/OUTPA TIENT VISIT, [facility], [address], [place], [place], [address], [place] tel:[phone] [facility] anxiety1 (chief complaint) fibromyalg ia1 (chief complaint) FibromyalgiaGeneral ized Anxiety Disorder Jul- 4 Romaine España. [address], [place], [place], [address] , [place]. tel:[phone] OFFICE/OUTPA TIENT VISIT, [facility], [address], [place], [place], [address], [place] tel:[phone] [facility] anxiety1 (chief complaint) pain (chief complaint) OAB1 (chief complaint) chest pain1 (chief complaint) DM (chief complaint) DyspneaChest painOveractive bladderGeneralized Anxiety DisorderFibromyalgi aType 2 diabetes mellitus without complications 4 Romaine España. [address], [place], [place], [address] , [place]. tel:[phone] OFFICE/OUTPA TIENT VISIT, [facility], [address], [place], [place], [address], [place] tel:[phone] [facility] pain (chief complaint) anxiety1 (chief complaint) DM (chief complaint) FibromyalgiaGeneral ized Anxiety DisorderType 2 diabetes mellitus without complicationsCardia c murmurOther specified disorder of bone density 4 Romaine España. [address], [place], [place], [address] , [place]. tel:[phone] OFFICE/OUTPA TIENT VISIT, [facility], [address], [place], [place], [address], [place] tel:[phone] [facility] DM (chief complaint) HTN (chief complaint) HLP (chief complaint) pain (chief complaint) anxiety1 (chief complaint) Generalized Anxiety DisorderFibromyalgi aEssential (primary) hypertensionType 2 diabetes mellitus without complicationsMixed hyperlipidemiaHashi pradeep's thyroiditis 4 Romaine Gudino [address], [place], [place], [address] , [place]. tel: [phone] [facility], [address], [place], [place], [address], [place] tel:[phone] [facility] No Information 4 Romaine España. [address], [place], [place], [address] , [place]. tel:[phone] OFFICE/OUTPA TIENT VISIT, [facility], [address], [place], [place], [address], [place] tel:[phone] [facility] pain (chief complaint) anxiety1 (chief complaint) DM (chief complaint) HTN (chief complaint) Type 2 diabetes mellitus without complicationsEssent ial (primary) hypertensionFibromy algiaGeneralized Anxiety DisorderEncounter for screening for malignant neoplasm of colon 4 Romaine España. [address], [place], [place], [address] , [place]. tel:[phone] OFFICE/OUTPA TIENT VISIT, [facility], [address], [place], [place], [address], [place] tel:[phone] [facility] DM (chief complaint) HLP (chief complaint) liver1 (chief complaint) polycythem ia1 (chief complaint) Fatty liverMixed hyperlipidemiaType 2 diabetes mellitus without complicationsSecond marcia polycythemiaHypothy roidism 4 Romaine España. [address], [place], [place], [address] , [place]. tel:[phone] OFFICE/OUTPA TIENT VISIT, [facility], [address], [place], [place], [address], [place] tel:[phone] [facility] DM (chief complaint) HLP (chief complaint) thyroid1 (chief complaint) pain (chief complaint) anxiety1 (chief complaint) FibromyalgiaMixed hyperlipidemiaType 2 diabetes mellitus without complicationsHypoth yroidismGeneralized Anxiety DisorderLiver diseaseOther specified disorder of bone density 4 Romaine España. [address], [place], [place], [address] , [place]. tel:[phone] OFFICE/OUTPA TIENT VISIT, [facility], [address], [place], [place], [address], [place] tel:[phone] [facility] DM (chief complaint) HLP (chief complaint) back pain1 (chief complaint) FibromyalgiaMixed hyperlipidemiaType 2 diabetes mellitus without complications 4 Romaine España. [address], [place], [place], [address] , [place]. tel:[phone] OFFICE/OUTPA TIENT VISIT, [facility], [address], [place], [place], [address], [place] tel:[phone] [facility] liver1 (chief complaint) HLP (chief complaint) thyroid1 (chief complaint) DM (chief complaint) back pain1 (chief complaint) Fatty liverMixed hyperlipidemiaType 2 diabetes mellitus without complicationsHypoth yroidismFibromyalgi a 4 Romaine España. [address], [place], [place], [address] , [place]. tel:[phone] OFFICE/OUTPA TIENT VISIT, [facility], [address], [place], [place], [address], [place] tel:[phone] [facility] HLP (chief complaint) DM (chief complaint) OAB (chief complaint) anxiety1 (chief complaint) fibromyalg ia1 (chief complaint) FibromyalgiaMixed hyperlipidemiaType 2 diabetes mellitus without complicationsGenera lized Anxiety DisorderOveractive bladder 4 Romaine España. [address] [place], [address] , [place]. tel:[phone] Family History Family Member Type Diagnosis Age At Onset Father Problem of fire accident Mother Problem Coronary artery disease (Cau se Of ) 75 Brother Problem of neck and throat [place] 6 4 Sister Problem Stroke (Cause Of ) 64 Payers Payer name Insurance type Covered republican ID Jordi mejiajanusz(s) [facility] [id number] Social History Type Description Quantity Date Captured [...] Referred To: Margarito Retana [address] [place] [address], [phone] Ordered: Referrals: Margarito Retana. Evaluate and treat ordered Referral Ordered: Kannan Mace -[facility] : Internal Medicine (related to Type 2 diabetes mellitus without complications) ordered Referral Referred To: Kannan Mace [address], [phone] Ordered: Referrals: [facility] : [...] treat ordered Referral Referred To: MANUEL ZELAYA [facility], [phone] Ordered: Referrals: Allopathic & Osteopathic Physicians : [...] 70 units and her glucose is still [id number] DM Pt has DM Pt is on [...] homicidal thought. Pt denies any crying spells OAB pt has OAB with incontinence .Pt [...] any crying spells. Pt takes xanax only DM Pt has DM Pt griffin es lantus, metformin amaryl, Januvia and her glucose is around 120s. chest pain1 Pt has frequent chest pain and sob. Pt is seeing cardiology and she had negative echo and she will do stress test soon Pt is on toprol now supervisor policy change clerks recommended her to see pulmonary ,Pt does [...] states that her pain is getting worse pain Pt has chronic l ow back [...] any confusion, headache, vision change, polyuria ,polydipsia. pain Pt has chronic l ow back [...] cythemia. Her iron and ferritin is pending anxiety1 Pt has chronic a nxiety Pt [...] pain . HLP Pt has HLP Pt ta kes crestor Pt denies any myalgia DM Pt has [...] L spine done early this year at [facility] but i can not find it. 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 Pt also has fibromyalgia HLP Pt has not picke d up crestor yet. It needs to be approved which is done. Pt will picked edge sewing machine operator crestor today DM Pt is on metform [...] Pt takes norco PRn for pain . thyroid1 Pt has mildly lo w thyroid Pt denies any dysphagia or neck pain DM Pt is on metform in, januvia and amaryl and her A1c is 9.3.. She states that her glucose is around 200-250. Pt denies any neuropathy symptoms liver1 Pt has elevated LFT .Pt told me she has diagnosis of fatty liver. Pt denies any abd pain or jaundice. HLP Pt is on lipitor and her lipid profile is still high Pt denies any myalgia HLP Pt has HLP Pt ta kes [...] Mental Status Date Cognitive Assessment Orientation - Barre ed to time, place, person, situation.
--- OUTSIDE RECORDS SUMMARY | 2025-05-10 00:52 | XMS_ITS | Data Portability ---
Author Organization [facility] Arzeda, Main Office Address [address] [place] [address] Assessment Encounter Date Assessment Date Assessment LastModified by Organization Details LastModified Time 08/24/2024 08/24/2024 Assessment: Cough Dyspnea Severe Plan: The following were reviewed and explained to the patient: primary care/referral note Myocardial perfusion test 07/31/24 EF 55%, no ischemia Limited 2-D echocardiogram 08/02/24 severe Cough/Dyspnea workup will be done as follows: Respiratory allergen panel for [facility] Serum IgE Serum total IgG, IgG1, IgG2, IgG3, IgG4 [id number] n phenotype and level TB stimulated gamma [...] (aat) phenotype, serum 2023 024 [email or web address] [facility] ([facility]), [address] [place], [address], 4 12:25:51 BNP (B-type natriuretic peptide), serum or plasma 2023 BAHMAN [facility] (Lab), [address] [place], [address], 4 14:14:24 ige, total, serum [address] (Lab), [address] [place], [address], 4 12:25:51 tb (M tuberculosi s), ifn-gamma mary beth, blood 2023 024 [place] [address] 82 [facility] (Lab), [address] [place], [address], 4 12:25:52 eosinophil count, manual, blood (OBS) 2023 [address] [facility] [place] [address] (Lab), [address] [place], [address], 4 12:25:52 igg subclasses 1+2+3+4, serum [address] (Lab), [address] [place], [address], 4 12:25:52 respiratory allergen panel, [facility] A, serum 2023 0[address] [facility] [place] [address] (Lab), [address] [place], [address], 4 12:25:52 respiratory allergen panel - [facility] b 2023 0[address] [facility] [place] [address] (Lab), [address] [place], [address], 4 12:25:52 vitamin D, 25-hydroxy, total, serum 2023 024 [facility] [email or web address] Not available 4 11:55:39 lipid panel, serum 2023 024 [facility] Not available 4 11:54:42 hepatic function panel, serum 2023 024 [facility] Not available 4 11:54:56 CBC w/ auto diff 2023 024 [facility] Not available 4 11:55:09 HbA1c (hemoglobin A1c), blood 2023 024 [email or web address] Not available 4 15:23:49 BMP, serum or plasma 2023 024 [facility] Not available 4 11:52:29 TSH, serum or plasma 2023 024 [facility] Not available 4 11:55:24 Referral physical therapist referral - *Please call pt to schedule* 2022 023 [email or web address] [facility], [address] [place], [address], 4 09:04:04 Procedures None recorded. Surgeries None recorded. Imaging None recorded. Medication Orders hydrocodone 5 mg-acetamin ophen 325 mg tablet [address] [facility], [address] [place], [address], 4 14:11:44 alprazolam 0.5 mg tablet 2023 024 [facility], [address] [place], [address], 4 09:48:18 hydrocodone 5 mg-acetamin ophen 325 mg tablet [email or web address] [facility], [facility] [place], [address], 14:11:44 Patient TargetsNo targets recorded. Patient Instructions Encounter Date Encounter Id Patient Instructions Last Modified By Organization Details Last Modified Time 08/24/2024 [id number] complete PFT w/ post bronchodilator spirometry* - Please call patient to schedule. NPAN [id number] per [employer] website. [email or web address] Not available 09/26/2024 08:47:05 02/14/2025 [id number] methacholine challenge* - Please call patient to schedule. NPAN [id number] per payor website. [email or web address] Not available 03/20/2025 14:54:01 Reason for Referral [...] 6.9 x10'3 /uL 4.2-10 .8 Not Available [facility] (Lab) [address] [place], [address], 11/24/2023 20:09:23 11/24/19 24 11/24/2023 CBC/C OMPLE TE BLD COUNT W/DIF F red blood cells 4.90 x10'6 /uL 3.80-5 .20 Not Available [facility] (Lab) [address] [place], [address], 11/24/2023 20:09:23 11/24/19 24 11/24/2023 CBC/C OMPLE TE BLD COUNT W/DIF F hemoglobin 15.6 g/dL 12.0-1 5.6 Not Available [facility] (Lab) [address] [place], [address], 11/24/2023 20:09:23 11/24/19 24 11/24/2023 CBC/C OMPLE TE BLD COUNT W/DIF F hematocrit 46.0 % 35.7-4 5.7 high Not Available [facility] (Lab) [address] [place], [address], 11/24/2023 20:09:23 11/24/19 24 11/24/2023 CBC/C OMPLE TE BLD COUNT W/DIF F mean red cell volume 93.9 fL 82.0-9 9.0 Not Available [facility] (Lab) [address] [place], [address], 11/24/2023 20:09:23 11/24/19 24 11/24/2023 CBC/C OMPLE TE BLD COUNT W/DIF F mean red cell hemoglobin 31.8 pg 27.0-3 3.0 Not Available [facility] (Lab) [address] [place], [address], 11/24/2023 20:09:23 11/24/19 24 11/24/2023 CBC/C OMPLE TE BLD COUNT W/DIF F mean RBC HGB concentratio n 33.9 g/dL 31.0-3 6.0 Not Available [facility] (Lab) [address] [place], [address], 11/24/2023 20:09:23 11/24/19 24 11/24/2023 CBC/C OMPLE TE BLD COUNT W/DIF F red cell distribution width 11.6 % 11.8-1 5.5 low Not Available [facility] (Lab) [address] [place], [address], 11/24/2023 20:09:23 11/24/19 24 11/24/2023 CBC/C OMPLE TE BLD COUNT W/DIF F platelets 217 x10'3 /uL 150-40 0 Not Available [facility] (Lab) [address] [place], [address], 11/24/2023 20:09:23 11/24/19 24 11/24/2023 CBC/C OMPLE TE BLD COUNT W/DIF F mean platelet volume 10.1 fL 9.0-12 .4 Not Available [facility] (Lab) [address] [place], [address], 11/24/2023 20:09:23 11/24/19 24 11/24/2023 CBC/C OMPLE TE BLD COUNT W/DIF F neutrophils 56.5 % 39.0-7 2.0 Not Available [facility] (Lab) [address] [place], [address], 11/24/2023 20:09:23 11/24/19 24 11/24/2023 CBC/C OMPLE TE BLD COUNT W/DIF F lymphocytes 32.7 % 16.0-4 7.0 Not Available [facility] (Lab) [address] [place], [address], 11/24/2023 20:09:23 11/24/19 24 11/24/2023 CBC/C OMPLE TE BLD COUNT W/DIF F monocytes 8.3 % 5.0-12 .0 Not Available [facility] (Lab) [address] [place], [address], 11/24/2023 20:09:23 11/24/19 24 11/24/2023 CBC/C OMPLE TE BLD COUNT W/DIF F eosinophils 1.5 % 1.0-7. 0 Not Available [facility] (Lab) [address] [place], [address], 11/24/2023 20:09:23 11/24/19 24 11/24/2023 CBC/C OMPLE TE BLD COUNT W/DIF F basophils 0.6 % 0.0-2. 0 Not Available [facility] (Lab) [address] [place], [address], 11/24/2023 20:09:23 11/24/19 24 11/24/2023 CBC/C OMPLE TE BLD COUNT W/DIF F immature granulocytes 0.4 % 0.00-0 .50 Not Available [facility] (Lab) [address] [place], [address], 11/24/2023 20:09:23 11/24/19 24 11/24/2023 CBC/C OMPLE TE BLD COUNT W/DIF F neutrophils, absolute count 3.89 x10'3 /uL 1.5-8. 0 Not Available [facility] (Lab) [address] [place], [address], 11/24/2023 20:09:23 11/24/19 24 11/24/2023 CBC/C OMPLE TE BLD COUNT W/DIF F lymphocytes, absolute count 2.25 x10'3 /uL 1.07-3 .43 Not Available [facility] (Lab) [address] [place], [address], 11/24/2023 20:09:23 11/24/19 24 11/24/2023 CBC/C OMPLE TE BLD COUNT W/DIF F monocytes, absolute count 0.57 x10'3 /uL 0.29-0 .99 Not Available [facility] (Lab) [address] [place], [address], 11/24/2023 20:09:23 11/24/19 24 11/24/2023 CBC/C OMPLE TE BLD COUNT W/DIF F eosinophils, absolute count 0.10 x10'3 /uL 0.02-0 .53 Not Available [facility] (Lab) [address] [place], [address], 11/24/2023 20:09:23 11/24/19 24 11/24/2023 CBC/C OMPLE TE BLD COUNT W/DIF F basophils, absolute count 0.04 x10'3 /uL 0.01-0 .08 Not Available [facility] (Lab) [address] [place], [address], 11/24/2023 20:09:23 11/24/19 24 11/24/2023 CBC/C OMPLE TE BLD COUNT W/DIF F immature granulocytes ,absolute 0.03 x10'3 /uL 0.00-0 .05 Not Available [facility] (Lab) [address] [place], [address], 11/24/2023 20:09:23 11/24/19 24 11/24/2023 CBC/C OMPLE TE BLD COUNT W/DIF F nucleated red blood cells 0.0 % -0 Not Available [facility] (Lab) [address] [place], [address], 11/24/2023 20:09:23 11/24/19 24 11/24/2023 CBC/C OMPLE TE BLD COUNT W/DIF F NRBC# 0.00 x10'3 /uL Not Available [facility] (Lab) [address] [place], [address], 11/24/2023 20:09:23 11/24/19 24 11/24/2023 VITAM IN D 25-HY DROXY vd25oh 28.4 NG/mL 30-100 low Vitam in D Statu s: Defic ient: <20 ng/mL Insuf ficie nt: 20-29 ng/mL Suffi cient : 30-10 0 ng/mL Not Available [facility] (Lab) [address] [place], [address], 11/24/2023 20:51:13 11/24/19 24 11/24/2023 BASIC METAB OLIC PANEL sodium 137 mmol/ L 137-14 5 Not Available [facility] (Lab) [address] [place], [address], 11/24/2023 20:54:42 11/24/19 24 11/24/2023 BASIC METAB OLIC PANEL potassium 4.0 mmol/ L 3.5-5. 1 Not Available [facility] (Lab) [address] [place], [address], 11/24/2023 20:54:42 11/24/19 24 11/24/2023 BASIC METAB OLIC PANEL chloride 100 mmol/ L 98-107 Not Available [facility] (Lab) [address] [place], [address], 11/24/2023 20:54:42 11/24/19 24 11/24/2023 BASIC METAB OLIC PANEL carbon dioxide 33 mmol/ L 22-30 high Not Available [facility] (Lab) [address] [place], [address], 11/24/2023 20:54:42 11/24/19 24 11/24/2023 BASIC METAB OLIC PANEL anion gap 8.0 mmol/ L 14-22 low Not Available [facility] (Lab) [address] [place], [address], 11/24/2023 20:54:42 11/24/19 24 11/24/2023 BASIC METAB OLIC PANEL glucose 313 mg/dL 70-99 high Not Available [facility] (Lab) [address] [place], [address], 11/24/2023 20:54:42 11/24/19 24 11/24/2023 BASIC METAB OLIC PANEL BUN 9 mg/dL 8-19 Not Available [facility] (Lab) [address] [place], [address], 11/24/2023 20:54:42 11/24/19 24 11/24/2023 BASIC METAB OLIC PANEL creatinine 0.73 mg/dL 0.66-1 .25 Not Available [facility] (Lab) [address] [place], [address], 11/24/2023 20:54:42 11/24/19 24 11/24/2023 BASIC METAB OLIC PANEL GFR >60 Refer ence Range : Harrison ge GFR Healt hy Adult : >60 [...] calcu lator is avail able on the [facility] websi te: https :[email or web address] gan.sammy [email or web address] rg/pr ofess ional s/kdo qi/gf r_cal culat or Not Available [facility] (Lab) [address] [place], [address], 11/24/2023 20:54:42 11/24/19 24 11/24/2023 BASIC METAB OLIC PANEL calcium 9.8 mg/dL 8.4-10 .2 Not Available [facility] (Lab) [address] [place], [address], 11/24/2023 20:54:42 11/24/19 24 11/24/2023 LIPID PANEL cholesterol 236 mg/dL 140-19 9 high NIH KIMBERLEY NSUS RECOM MENDA TION FOR KILEY STERO L: ADULT CHILD LOW RISK: <200 <170 BORDE RLINE : <200- 239 ----- HIGH RISK: >240 >200 Not Available [facility] (Lab) [address] [place], [address], 11/24/2023 20:54:47 11/24/19 24 11/24/2023 LIPID PANEL triglyceride s 265 mg/dL 0-150 high NIH KIMBERLEY NSUS REPOR T RECOM MENDA TION FOR TRIGL YCERI YUE: ADULT CHILD LOW RISK: <150 ----- BODER LINE: 150-1 99 ----- HIGH RISK: >200 ----- Not Available [facility] (Lab) [address] [place], [address], 11/24/2023 20:54:47 11/24/19 24 11/24/2023 LIPID PANEL HDL cholesterol 55 mg/dL 40- Not Available [facility] (Lab) [address] [place], [address], 11/24/2023 20:54:47 11/24/19 24 11/24/2023 LIPID PANEL [...] WILL NOT BE REPOR FUNMILAYO. Not Available [facility] (Lab) [address] [place], [address], 11/24/2023 20:54:47 11/24/19 24 11/24/2023 HEPAT IC/LI ADILENE PANEL alkaline phosphatase 113 U/L 38-126 Not Available [facility] (Lab) [address] [place], [address], 11/24/2023 20:54:48 02/07/20 24 11/24/2023 HEPAT IC/LI ADILENE PANEL alanine aminotransfe rase 69 U/L 0-35 high Not Available [facility] (Lab) [address] [place], [address], 11/24/2023 20:54:48 11/24/19 24 11/24/2023 HEPAT IC/LI ADILENE PANEL aspartate aminotransfe rase 72 U/L 15-37 high Not Available [facility] (Lab) [address] [place], [address], 11/24/2023 20:54:48 11/24/19 24 11/24/2023 HEPAT IC/LI ADILENE PANEL bilirubin, total 0.80 mg/dL 0.20-1 .30 Not Available [facility] (Lab) [address] [place], [address], 11/24/2023 20:54:48 11/24/19 24 11/24/2023 HEPAT IC/LI ADILENE PANEL bilirubin, conjugated (direct) 0.00 mg/dL 0.00-0 .30 Not Available [facility] (Lab) [address] [place], [address], 11/24/2023 20:54:48 11/24/19 24 11/24/2023 HEPAT IC/LI ADILENE PANEL biliurubin,u ncong. (indirect) 0.40 mg/dL 0.00-1 .1 Not Available [facility] (Lab) [address] [place], [address], 11/24/2023 20:54:48 11/24/19 24 11/24/2023 HEPAT IC/LI ADILENE PANEL total protein 7.2 g/dL 6.3-8. 2 Not Available [facility] (Lab) [address] [place], [address], 11/24/2023 20:54:48 11/24/19 24 11/24/2023 HEPAT IC/LI ADILENE PANEL albumin 4.0 g/dL 3.4-5. 0 Not Available [facility] (Lab) [address] [place], [address], 11/24/2023 20:54:48 11/24/19 24 11/24/2023 HEPAT IC/LI ADILENE PANEL globulin 3.2 g/dL 2.6-4. 2 Not Available [facility] (Lab) [address] [place], [address], 11/24/2023 20:54:48 11/24/19 24 11/24/2023 HEPAT IC/LI ADILENE PANEL A/G ratio 1.3 ratio 1.0-2. 0 Not Available [facility] (Lab) [address] [place], [address], 11/24/2023 20:54:48 11/24/19 24 11/24/2023 TSH thyroid-stim ulating hormone 5.840 uIU/m L 0.465- 4.680 high Not Available [facility] (Lab) [address] [place], [address], 11/24/2023 20:55:12 11/24/19 24 11/24/2023 HEMOG LOBIN A1C HA1C 9.3 % 4.0-6. 0 high Diabe diandra Scree lucía Crite gigi: <5.7% Consi stent with absen ce of diabe diandra 5.7-6 .4% Consi stent with incre ased risk for diabe diandra (pred iabet es) >OR=6 .5% Consi stent with diabe diandra REFER ENCE: Diabe diandra Care 2016, 39(Javier ppl.1 ):s13 -s22 Not Available [facility] (Lab) [address] [place], [address], 11/24/2023 21:49:51 08/02/20 23 08/02/2023 XR, lumba r spine No observ ation record ed. [email or web address] [place] [address] [facility] [address], [place], [address], 08/04/2023 17:42:41 08/23/20 23 08/23/2023 MAMMO , scree lucía, digit al, bilat eral [facility] [address] [facility] [address], [place] [address] Patien t Name: TRUMAN TOPETE Access ion #: [id number] Sex: F : 1964 3 Dictat [...] at 2022 10:10: 32 AM Page 1 [email or web address] (One Call Scheduling) [address], [place], [address], 09/20/2023 08:16:44 08/25/2008/02/2024 US, echoc ardio gram, trans thora cic, compl ete No observ ation record ed. BARCODE Not Available 2023 10:35:52 08/25/20 24 07/31/2024 NM, myoca rdial perfu amarjit scan No observ ation record ed. BARCODE Not Available 2023 10:35:53 02/14/2002/12/2025 compl ete PFT w/ post [facility] hodil ator davin metry * No observ ation record ed. BARCODE [facility] (One Call Scheduling) [address] [place], [address], 02/13/2025 09:44:26 Result Notes Documentation Provider Name and Address Organization Details Recorded Time Mammo, Screening, Digital, Bilateral : [facility] [address] [id number] Patient Name: TRUMAN TOPETE Sex: F : [...] Benign Page 1 Peri Taylor MD [address] [facility], [address], [place], [address], [employer] 09/20/2023 08:16:44 Problems Name Problem SNOMED Code Status Onset Date Resolution Date Notes Provider Name and Address Organization Details Recorded Time Hyperglycem ia due to type 2 diabetes mellitus 7349003455417 09 Active 2022 ARAM Kessler [address], [address], [place], [address], [employer] 3 10:15:24 Urinary incontinenc e 856054870 Active 2022 ARAM Kessler [address], [address], [place], [address], [employer] 3 10:16:00 Obesity 083791043 Active 2022 ARAM Kessler [address], [address], [place], [address], [employer] 3 10:23:41 Fibromyalgi a 044995203 Active 2022 ARAM Kessler [address], [address], [place], [address], [employer] 3 10:32:01 Hyperlipide sanna 45745045 Active 2022 ARAM Kessler [address], [address], [place], [address], [employer] 3 09:45:03 Non-alcohol ic fatty liver 250744346 Active 2022 ARAM Kessler [address], [address], [place], [address], [employer] 3 09:46:46 Hearing loss 12839910 Active 2022 ARAM Kessler [address], [address], [place], [address], [employer] 3 12:50:21 Anxiety disorder 778564100 Active 2022 ARAM Kessler [address] [facility], [address], [place], [address], [employer] [facility] Arzeda 3 10:51:52 Vitamin D deficiency 84651802 Active 2023 Peri Taylor MD [address] [facility], [facility] [address], [place], [address], [employer] 4 09:43:35 Dyspnea on exertion 44178522 Active 2024 Andrzej Fritz MD [address] [facility], [facility] [address], [place], [address], [facility] [employer] [facility] Arzeda 5 09:13:48 Notes:Medical History: Marij uana use Anxiety/Depression Bilateral hearing loss Rhinitis IgE 12 IU/mL Eosinophils 70/uL Obesity Hypertension Mixed hyperlipidemia T2DM Severe Atrial fibrillation NAFLD Urge urinary incontinence Vit D insufficiency Lumbar spondylosis Fibromyalgia Procedure History: [facility] 1990 Occupational History: Vcjp-[id number]-[id number] Problem Notes None recorded. Procedures Surgical History Date Name Laterality Status Provider Name and Address Organization Details Recorded Time Hysterectomy completed Tanja Vargas RN [facility] [employer] [facility] 01/28/2023 10:04:10 Imaging Results None recorded. Procedure Notes None recorded. Medical Equipment None Reported. Allergies Allergen ID Allergen Name Allergen Category Reaction Reaction Severity Criticality Documentation Date Start Date Code Code System Note Provider Name and Address Organization Details Recorded Time 52497 fentanyl medicatio n Not available Not available Not available 01/28/2023 4337 RxNorm Tanja Vargas RN [facility], [facility] [employer] [facility] 3 10:04:27 Medications Name Sig Start Date [...] completed Not Available Not Available Not Available [employer] Ultra Test strips USE STRIP TO CHECK [...] e 50 mcg/actua tion nasal spray,francy pension Kiron 1 spray every day by intranas al [...] Available Not Available No t Available Afluria 3564-6644 (PF) 45 mcg(15 mcg x 3)/0.5 mL [...] Taylor MD [address], [address], [place], [address], [facility] [employer] [facility] 11/24/2023 09:47:30 Date Recorded Body height Body mass index (BMI) Body weight Body temperature Heart rate Oxygen saturation Oxygen saturation in Arterial blood by Pulse oximetry Provider Name and Address Organization Details Last Updated DateTime 4 154.94 cm 40.4 kg/m2 53989.7 7 g 97.6 [degF] 93 /min 95 % 95 % Roger Sanchez RN [facility] [employer] [facility] 4 09:21:38 Date Recorded Heart rate Heart rate Respiratory rate Provider Name and Address Organization Details Last Updated DateTime 02/14/2025 87 /min 87 /min 14 /min Andrzej Fritz MD [address], [address], [place], [address], [facility] [employer] [facility] 02/14/2025 09:40:30 Date Recorded Body height Body mass index (BMI) Body weight Body temperature Oxygen saturation Oxygen saturation in Arterial blood by Pulse oximetry Systolic And Diastolic Provider Name and Address Organization Details Last Updated DateTime 5 154.94 cm 35.5 kg/m2 74570.3 7 g 97.6 [degF] 97 % 97 % 118/76 mm[Hg] Bia George MA [facility] [employer] [facility] 5 09:35:57 Date Recorded Body height Body mass index (BMI) Body weight Body temperature Heart rate Oxygen saturation Oxygen saturation in Arterial blood by Pulse oximetry Systolic And Diastolic Provider Name and Address Organization Details Last Updated DateTime 3 154.94 cm 40.8 kg/m2 06527.9 5 g 98.7 [degF] 96 /min 98 % 98 % 154/86 mm[Hg] Roger Sanchez RN [facility] [employer] [facility] 3 09:03:24 Date Recorded Heart rate Respiratory rate Provider N dereje and Address Organization Details Last Updated DateTime 08/24/2024 77 /min 15 /min Andrzej Fritz MD [address] [place] [address], [address], [facility] [employer] [facility] 08/24/2024 13:57:05 Date Recorded Body height Body mass index (BMI) Body weight Body temperature Heart rate Oxygen saturation Oxygen saturation in Arterial blood by Pulse oximetry Systolic And Diastolic Provider Name and Address Organization Details Last Updated DateTime 4 154.94 cm 37.2 kg/m2 23551.7 g 98.2 [degF] 77 /min 99 % 99 % 126/76 mm[Hg] Bia George MA [facility] [employer] [facility] 4 12:53:30 Date Recorded Body height Body mass index (BMI) Body weight Body temperature Heart rate Oxygen saturation Oxygen saturation in Arterial blood by Pulse oximetry Systolic And Diastolic Provider Name and Address Organization Details Last Updated DateTime 3 154.94 cm 40.6 kg/m2 96847.3 6 g 97.5 [degF] 93 /min 95 % 95 % 140/78 mm[Hg] Roger Sanchez RN [facility] [employer] [facility] 3 08:09:43 Social History Question Answer Notes LastModified by Organizat ion Details LastModified Time Tobacco Smoking Status Never Smoker Tanja Vargas RN [facility], [facility] [employer] [facility] 01/28/2023 10:03:23 What Is Your Level Of [...] anxious, or unable to sleep at night)? [id number] Information not available 02/19/2023 Family History Relationship [...] SNOMED-CT Code Diagnosis ICD10 Code Diagnosis Note [id number] ARAM Kessler [facility] [address] [place] [address] 01/28/2023 09:52:48 01/28/2023 10:39:24 Hyperglycemia due to type 2 diabetes mellitus [id number] 76341 E11.65 Unknown statusLike ly poorly controlled based on pts blood sugar log.Discus sed need for regular exercise, increase intake of water/vege tables/fib er. Decrease intake of carbs, especially white rice/pasta /flour/donavon ad/sugar.A dvised to continue with metformin and glimepirid e pending lab results. Discussed with pt that GI sx with metformin are likely d/t poor diet. Urinary incontinence 165 018823 R32 ChronicKee p upcoming appt with urologist at [facility]. Headache 61048981 R51.9 Chronic, s/p fall several months ago.Right [...] for MRI head w/o contrast. Pt prefers [facility] imaging Pain of ear 809253294 H9 2.09 RecurrentB ilateralMo d erythema bilat EACs.Head pain is likely to be cause of ear pain, not the other way around.Elton l refer to ENT for further evaluation /tx. Start ear gtts and nose spray in the meantime. Obesity 512509244 E66.9 Advised eat 3 meals daily with 1-2 healthy snacks, eliminate caloric drinks, no grazing btw meals, reduce packaged foods, portion control, modificati on of cooking style, low fat/low sugar items, 30 minutes of exercise at least 3x/week, reduce emotional/ stress eating, increase fruits/veg etables, take 15-20 minutes to eat. Thyroid di sorder screening 572698760 Z13.29 Fibromyalgia 832129268 M 79.7 Pt reports dx, no supporting documentat ion available. Will refer to Dr. Magda Willingham to be evaluated for possible medical marijuana. [id number] Peri Taylor MD [facility] [address] [place] [address] 02/19/2023 09:26:17 02/19/2023 10:22:16 Hyperglycemia due to type 2 diabetes mellitus 7602911212 47679 E11.65 LzrihptO0H 6.8 (01/28/23)S table with metformin and glimepirid e; however, pt c/o metformin causes her GI issues and dizziness. Discussed need for regular exercise, increase intake of water/vege tables/fib er. Decrease intake of carbs, especially white rice/pasta /flour/donavon ad/sugar.W ill discontinu e metformin d/t GI upset and dizziness. Will increase glimepirid e to 2mg BID. Hyperlipidemia 84987298 E78.5 New finding on labstotal 238, trigs 178, ldl 138 (01/28/23)D iscussed need for regular exercise, increase intake of water/vege tables/fib er. Decrease the amount of greasy/fat ty/fried foods in diet. Consider/s tart taking a daily fish oil supplement .Start atorvastat in 20mg daily per ADA guidelines Non-alcoho lic fatty liver 602618214 K76.0 Chronicalt 43/alt 51 (01/28/23)C ontinue to work on diet/exerc ise to prevent worsening. [id number] ARAM Kessler [facility] [place] [address] [facility] [address] [place] [address] 03/19/2023 10:17:48 03/19/2023 11:11:09 Pain of left shoulder joint [id number] 7916590 M25.512 New problemSta rt OTC NSAIDs. Ok to combine w/Tylenol. Try Biofreeze, ice, rest, and home stretching as discussed. Will update with XR results, consider MRI if appropriat e. Hyperglyce sanna due to type 2 diabetes mellitus 9049601602 97900 E11.65 DvxeeiyK2Z 6.8 (01/28/23)S table with metformin and glimepirid e; however, pt c/o metformin causes her GI issues and dizziness. Discussed need for regular exercise, increase intake of water/vege tables/fib er. Decrease intake of carbs, especially white rice/pasta /flour/donavon ad/sugar.D iscontinue d metformin d/t GI upset and dizziness. Continue glimepirid e 2mg BID. Headache [id number] R51.9 Chronic, s/p fall several months ago.Right [...] on topiramate 25mg BID Urinary incontinence 165 [id number] R32 ChronicKee p upcoming appt with urologist at [facility].Continue oxybutynin 10mg daily Pain of ear [id number] H9 2.09 RecurrentB ilateralHe ad pain is likely to be cause of ear pain, not the other way around.Ref erred to ENT for further evaluation /tx, continue ear gtts and nose spray in the meantime. Fibromyalgia [id number] M 79.7 Pt reports dx, no supporting documentat ion available. Referred to Dr. Magda Willingham to be evaluated for possible medical marijuana. Pt advised to increase duloxetine to 60mg BID Obesity 804339050 E66.9 Advised eat 3 meals daily with 1-2 healthy snacks, eliminate caloric drinks, no grazing btw meals, reduce packaged foods, portion control, modificati on of cooking style, low fat/low sugar items, 30 minutes of exercise at least 3x/week, reduce emotional/ stress eating, increase fruits/veg etables, take 15-20 minutes to eat. [id number] [facility] [address] [address] 04/16/2023 09:41:42 04/16/2023 10:27:13 Postmenopausal state [id number] Z78.0 04/16/23 Symptoms continue. Will start 40mg BID. F/u in 1 month Edema of l ower extremity 843898250 R60.0 increase water intake, take rest periods through the day to elevate feet, continue to limit sodium intake Fibromyalgia 038792417 M 79.7 04/16/23 stable with use of ibuprofen. Paper for parking placard completed today. Pt reports dx, no supporting documentat ion available. Referred to Dr. Magda Willingham to be evaluated for possible medical marijuana. Pt advised to increase duloxetine to 60mg BID [id number] WAGNER Kess[address] [address] 05/14/2023 10:24:44 05/14/2023 11:01:44 Postmenopausal state 81271078 Z78.0 ChronicPt stopped taking duloxetine as directed. Encouraged pt to reconsider resumption to manage menopausal flushing and fibromyalg ia. Edema of l ower extremity 122102574 R60.0 Recurrenti ncrease water intake, take rest periods through the day to elevate feet, continue to limit sodium intake. Fibromyalgia 393887415 M 79.7 ChronicPt reports dx, no supporting documentat ion available. Previously referred to Dr. Magda Willingham to be evaluated for possible medical marijuana. Pt encouraged to reconsider taking duloxetine for sx and menopausal flushing. Hyperglyce sanna due to type 2 diabetes mellitus [id number] 90465 E11.65 PamjbbeM7O 6.8 (01/28/23)W as stable with combinatio n of metformin and glimepirid e; however, pt c/o metformin causes her GI issues and dizziness. Discussed need for regular exercise, increase intake of water/vege tables/fib er. Decrease intake of carbs, especially white rice/pasta /flour/donavon ad/sugar.D iscontinue d metformin d/t GI upset and dizziness. Increase Glimepirid e to 4mg BID [id number] Peri Taylor MD [facility] David antoni [address] [facility] [address] [facility] [place] [address] 06/15/2023 09:13:49 06/15/2023 09:50:01 Fall W19.XXXD RecurrentW ill decrease glimepirid e dosage and order shower chair/grab bars to reduce risk of falls.Pt advised to continue to track blood sugars closely. Hyperglyce sanna due to type 2 diabetes mellitus [id number] 34601 E11.65 IkcijfuC2W 6.8 (01/28/23)W as stable with combinatio n [...] log, sx resolve with calorie count btw 5755-3460. Previously discontinu ed metformin d/t GI upset and dizziness. Decrease Glimepirid e to 2mg BIDContinu e Trulicity 0.75mg weekly Obesity 677186705 E66.9 ChronicRev iewed pts food/blood sugar diary. Pt still consuming a lot of carbs. Pt also often not consuming enough calories. Advised pt that she needs to try to keep calorie count around 3779-7793 per day. Discussed that consuming too few calories is as detrimenta l as consuming too many. Dizziness [id number] R42 RecurrentP t previously c/o having dizziness [...] log, sx resolve with calorie count btw 5420-1255. [id number] Peri Taylor MD [facility] Primary Care [address] [place] [address] 06/29/2023 10:04:15 06/29/2023 13:36:10 Hyperglycemia due to type 2 diabetes mellitus [id number] 01647 E11.65 AwydoujA3S 6.8 (01/28/23); 12.3Was stable with combinatio n of metformin and glimepirid e; however, pt c/o metformin causing her GI issues (nausea/vo miting) and dizziness. Was still experienci ng dizziness/ falls with glimepirid e and Trulicity. Will discontinu e Trulicity per patient request.Re sume glimepirid e 4mg BIDAdd on Janumet 50mg-1000m g daily, will likely need PA. Anxiety disorder 4761960 06 F41.9 ChronicNot well controlled off meds. [...] --RTO 4 weeks for f/u on medication [id number] Peri Taylor MD [facility] Primary Care [address] [place] [address] 08/11/2023 08:51:14 08/11/2023 09:34:26 Primary fibromyalgia syndrome 53279332 M79.7 M47.896 has failed duloxetine , tramadol, gabapentin Hyperglyce sanna due to type 2 diabetes mellitus 1676118576 96044 E11.65 improved per home readingsco ntinue current medication plan repeat labs in 3 months [id number] Peri Taylor MD [facility] Primary Care [facility] [address] [facility] [address] [place] [address] 09/20/2023 08:05:01 09/20/2023 08:26:56 Low back pain 628775836 M54.50 has persistent pain for 8+ weeks after weekshas weakness and pain that radiates down buttocksxr ay shows arthritis and degenerati ve disk diseasePT referral givenf/u in 6 weeks or sooner if needed [id number] Peri Taylor MD [facility] Primary Care [facility] [address] [facility] [address] [place] [address] 11/24/2023 09:14:29 11/24/2023 09:55:42 Hyperglycemia due to type 2 diabetes mellitus [id number] 64237 E11.65 not in good control per home readingsco ntinue current medication check labs today Hyperlipidemia 10336265 E78.5 Z79.899 Fatigue 35915135 R53.83 Vitamin D deficiency 347 90007 E55.9 Low back pain 596011107 M54.50 has persistent pain for 8+ weeks after weekshas weakness and pain that radiates down buttocksxr ay shows arthritis and degenerati ve disk diseasePT referral givenf/u in 6 weeks or sooner if needed improved Anxiety disorder 9297039 06 F41.9 Primary fi bromyalgia syndrome 38626710 M79.7 M47.896 has failed duloxetine , tramadol, gabapentin [id number] Andrzej Fritz MD [facility] [place] [address] 08/24/2024 12:13:45 10/16/2024 09:34:23 Dyspnea on exertion 89274250 R06.09 R05.9 T78.40XA [id number] Andrzej Fritz MD [facility] [address], [address] [place] [address] 02/14/2025 09:05:06 02/16/2025 12:07:47 Dyspnea on exertion 28948433 R06.09 R05.9 Health Concerns Section Related Observation LastModified by Organization Omar ls LastModified Time None Recorded Concern Status LastModified by Organization Details LastModified Time None Recorded Advance Directives Directive None Recorded Payers Insurance Date Sequence Insurance Name Policy Number Policy Silva Covered Member ID Silva Member ID Guarantor Name 02/16/2025 1 [facility] (MEDICAID HMO) [id number] Truman Linder Ronald [id number] [facility] Notes Date Note Type Note Provider [...] in lumbar spine. Peri Taylor MD [address] [facility], [place] [address], [place], [address], [place] 08/16/2023 13:11:31 09/20/2023 text/html Here for f/u, [...] out of bed. Peri Taylor MD [address] [facility], [facility] [address], [place], [address], [place] 09/20/2023 08:23:35 11/24/2023 text/html Here for f/u, [...] very stressed. +fatigue Peri Taylor MD [address] [facility], [facility] [address], [place], [address], [facility] [place] [employer] [facility] 12/16/2023 18:12:10 08/24/2024 text/html Primary care/Referring provider: [...] walking Alleviating factors: rest Modified [employer] (mMRC) Dyspnea Scale - Grade 2 Grade [...] Edema: no Environmental exposures: Nicotine smoke: no [place]: no Dye: no Dust mites: yes Mold: no Damp basement: no Wood burning stove: no Animal dander: dogs Cockroaches: no Pollen: yes Arsenic: no Asbestos: no Beryllium: no Cadmium: no Chromium: no [place] smoke: no Diesel fumes: no Nickel: no [...] no chance of dozing. Andrzej Fritz MD [address] [place] [address], [address], [place] [facility] [place] [employer] 08/24/2024 15:24:39 02/14/2025 text/html Primary care/Referring provider: [...] factors: walkingAlleviating factors: rest Modified [employer] (mMRC) Dyspnea Scale - Grade 2Grade 0 [...] slight chance of dozing. Andrzej Fritz MD [address] [place] [address], [place], [address], [place] [facility] [place] [facility] 02/14/2025 09:53:03 OBGyn Episode No OBEpisode recorded.
[2025-05-10 07:31] LABS: Hematocrit 43.9 % (37.0-47.0); Hemoglobin 15.2 g/dL (12.0-15.0); Immature Granulocyte Percent A 0.3 % (0-0.5); Lymphocytes Absolute Auto 2.44 K/mm3 (0.9-3.2); Mean Corpuscular HGB Conc 34.6 g/dl (32-36); Mean Corpuscular Hemoglobin 31.4 pg (26-34); Mean Corpuscular Volume 90.7 fl (80-100); Nucleated Red Blood Cells Absolute Auto 0.000 K/mm3 (0.0-0.012); Nucleated Red Blood Cells Perc 0.0 % (0.0-0.2); Platelet Count Result 191 k/mm3 (150-375); Red Blood Count 4.84 M/mm3 (4.2-5.4); White Blood Count 7.6 K/mm3 (4.5-10.0)
[2025-05-10 07:51] LABS: Anion Gap 8 mmol/L (4-12); Blood Urea Nitrogen 12 mg/dL (7-17); Calcium 8.9 mg/dL (8.4-10.2); Carbon Dioxide 28 mmol/L (22-30); Chloride 99 mmol/L (98-107); Estimated CRCL calculation 76 ml/min; Estimated Glomerular Filt Rate > 60; Glucose 286 mg/dL (65-110); Potassium 4.1 mmol/L (3.4-5.0); Sodium 135 mmol/L (137-145)
--- NOTE | 2025-05-10 08:39 | WPDHPUPDATE1 ---
History and Physical Update Update Date/Time: 05/10/25 08:39 History and Physical has been reviewed, including an updated exam of the patient. There are NO changes in the patient's condition. Risks, benefits, and alternatives have been discussed and questions answered. Patient agrees to proceed with procedure.
--- NOTE | 2025-05-10 08:39 | WPDMODSED ---
Moderate Sedation Note-Pt Data Patient Data Allergies Allergy/AdvReac Type Severity Reaction Status Date / Time morphine Allergy Unknown Headache Verified 05/09/25 11:23 Sulfa (Sulfonamide Allergy Unknown Anaphylaxis Verified 05/09/25 11:23 Antibiotics) fentanyl AdvReac Severe Anaphylaxis Verified 05/09/25 11:23 Home Medications ?Medication ?Instructions ?Recorded ?Confirmed ?Type atorvastatin 20 mg tablet 20 mg PO DAILY 03/25/23 05/09/25 History duloxetine 60 mg capsule,delayed 60 mg PO DAILY 03/25/23 05/09/25 History release fluoxetine 20 mg capsule 20 mg PO DAILY 03/25/23 05/09/25 History glimepiride 2 mg tablet 2 mg PO BID 03/25/23 05/09/25 History oxybutynin chloride 5 mg tablet 5 mg PO BID 03/25/23 05/09/25 History propranolol 40 mg tablet 40 mg PO Q12H 03/25/23 05/09/25 History topiramate 25 mg tablet (Topamax) 25 mg PO DAILY 03/25/23 05/09/25 History pen needle, diabetic 29 gauge x #100 ea 02/27/25 04/11/25 History 1/2 (TRUEplus Pen Needle) alprazolam 0.5 mg tablet 0.5 mg PO QID PRN anxiety 04/30/25 05/09/25 History hydrocodone 7.5 mg-acetaminophen 1 tablet PO Q12H PRN pain 04/30/25 05/09/25 History 325 mg tablet insulin glargine 100 unit/mL (3 70 unit subcut QPM 04/30/25 05/09/25 History mL) subcutaneous pen (Lantus Solostar U-100 Insulin) Sedation/Anesthesia: No previous sedation/anesthesia problems (including family history). [facility] Past Medical History Medical History (Updated 02/27/25 @ 09:43 by Margarito Retana DO) Seizures Hyperlipidemia Migraine Anxiety Fall Family History Family History (Updated 03/25/23 @ 09:18 by Judy Sterling CMA) Sibling Alcoholism Asthma Cancer Family history of diabetes mellitus in first degree relative Depression Cerebrovascular accident Father Family history of diabetes mellitus in first degree relative Alcoholism Depression Mother Family history of lung disease Alcoholism Asthma Depression Son Depression Daughter Depression Social History Social History (Updated 03/25/23 @ 09:03 by Judy Sterling CMA) Smoking status: Never smoker Second hand tobacco smoke exposure: No Alcohol intake: never Substance use: current Substance use type: marijuana Living arrangements: with family Spiritual care concerns: No Mod Sed Physical Exam Physical Exam Pre Procedural Exam: Normal: Lungs, Heart Size, Heart Rate and Heart Rhythm Hours since solid foods: 12 Hours since liquid intake: 12 Mallampati Classification: class II Internal Medicine - PN: Obj Da Vital Signs Vital Signs: Vital Signs - 24 hr 05/10/25 07:18 Temperature 36.3 C L Pulse Rate 81 Respiratory Rate 16 Blood Pressure 124/82 Pulse Oximetry 98 Oxygen Delivery Room Air Labs 05/10/25 07:21 05/10/25 07:21 Labs: Laboratory Results - last 24 hr 05/10/25 07:21 WBC 7.6 RBC 4.84 Hgb 15.2 H Hct 43.9 MCV 90.7 MCH 31.4 MCHC 34.6 RDW 11.9 Plt Count 191 MPV 9.0 Immature Gran % (Auto) 0.3 Neut % (Auto) 55.5 Lymph % (Auto) 32.2 [place] % (Auto) 10.2 H Eos % (Auto) 1.3 Baso % (Auto) 0.5 Lymph # (Auto) 2.44 [place] # (Auto) 0.8 H Eos # (Auto) 0.1 Baso # (Auto) 0.0 Abs Immat Gran (auto) 0.02 Absolute Neuts (auto) 4.2 Absolute Nucleated RBC 0.000 Nucleated RBC % 0.0 Sodium 135 L Potassium 4.1 Chloride 99 Carbon Dioxide 28 Anion Gap 8 BUN 12 Creatinine 0.67 L Estim Creat Clear Calc 76 Estimated GFR > 60 Glucose 286 H Calcium 8.9 ASA Classification/Sedation ASA Classification/Sedation ASA Class: III Emergent: No Risks: Risks, benefits and alternatives explained and patient/family accepted plan for sedation. Patient re-evaluated immediately prior to sedation.
--- NOTE | 2025-05-10 09:49 | P.PCNCC_ITS ---
Cardiac Cath Procedure Note Date of procedure:: 05/10/25 Performing physician:: CATHETERIZATION LABORATORY REPORT Procedure Date: 05/10/2025 Referring Physician: Dr. Retana Anesthesia: Versed and Fentanyl were ordered and given in my presence at 0905, procedure ended at 0940. Supervision of nurse, Rebecca Franz monitored moderate sedation with 2mg Versed was provided for 35 minutes. Pre-op Diagnosis: Severe bicuspid aortic stenosis Post-op Diagnosis: Severe bicuspid aortic stenosis Procedure(s): Left heart catheterization with coronary angiography Right heart catheterization Access Site: Right radial artery Right brachial vein Brief History and Clinical Indications: 60-year-old woman with bicuspid severe aortic stenosis was referred for right and left heart catheterization prior to surgical correction All risks, benefits and alternatives to left heart catheterization with or without percutaneous coronary intervention was discussed at length with the patient. Risk of complications including but not limited to bleeding, infection, arrhythmia, stroke, worsening kidney function, blood loss, groin hematoma, limb loss, emergency coronary artery bypass grafting, and even were discussed with the patient and all questions were answered. The patient understood and wished to proceed. Time out called, patient name, date of , medical record number, allergies, procedure performed, identify Manufacturing Process Technician, patient and staff member concurred with accurate data, procedure carried on. Findings: LEFT HEART CATHETERIZATION FINDINGS: 1. Left main: The left main coronary artery is short and widely patent without any significant obstructive disease. 2. Left anterior descending: The LAD is a large caliber vessel that bifurcates at apex. The mid LAD has diffuse 10-20% stenosis. The diagonal branches are free of high-grade angiographic stenosis. 3. Left circumflex: The left circumflex artery is a large dominant vessel providing 1 main OM branch prior to giving off the left PDA and left PLV branches. This system has diffuse 10% stenosis. 4. Right coronary artery: The RCA is small and non dominant with mild disease. 5. Opening AO pressure 148/81 and closing AO pressure 166/88 RIGHT HEART CATHETERIZATION FINDINGS: Pressures (mmHg): RA: 9 RV: 29/6 PA: 24/15 (21) PCWP: 12 (v 16) Saturations (%): PA: 70.6 Arterial: 94.4 CO/CI: Sean: 4.7/2.5 Description of Procedure: Informed consent signed and placed in the chart. Patient transferred to helper animal laboratory room. Prepped and aped in usual sterile fashion. 2% lidocaine injected subcutaneously in right brachial area. Right brachial vein was accessed using Seldinger technique under ultrasound guidance. 7FR sheath placed. Attention was then turned to the right radial artery which was axis under ultrasound guidance via Seldinger technique with a 6F slender sheath. 7F [place] catheter was advanced into the right side of the heart chambers and pressures/oximetry were measured. 5F Ultra diagnostic catheter engaged left main coronary artery as well as the right coronary artery. Multiple orthogonal angiogram obtained and reviewed Hemostasis of the right radial artery was achieved by application of TR band. Hemostasis of the right brachial vein was achieved with manual pressure. Assessment: Severe aortic stenosis. Mild coronary artery disease. Normal right heart filling pressures Post Operative Condition: Stable No significant blood loss Disposition: Home Plan: Continue aggressive medical therapy and risk factor modification. Proceed with SAVR for known severe bicuspid aortic stenosis Serjio Cazares Interventional Cardiology
[2025-05-10] MEDS: SODIUM CHLORIDE 0.9% IV 1,000 ML 125 ML IV CONT (10:30)
--- NOTE | 2025-05-10 14:00 | SUR.PHASEII ---
Dr. Cazares examined pt at this time due to noted hematoma and states that even though hematoma is soft, to place two TR bands w/ 15 mLs of air. After one hour, release 3 cc every 15 mins from proximal band, once proximal band is off then start on distal band with the same process. MD Cazares states that pt can leave once bands are off as long as hematoma is still soft.
--- NOTE | 2025-05-10 15:45 | SUR.PHASEII ---
Dr. Cazares came back to reexamine pt and stated to start taking air out of the distal band now even though the proximal band still has air in it.
--- NOTE | 2025-05-10 17:10 | SUR.PHASEII ---
When this RN took the last TR band off, small hematoma still noted to site. Manual pressure held for 10 mins, MD Cazares called to examine pt. MD Cazares states pt is ok for discharge due to hematoma being soft. This RN called pt's daughter for discharge.
--- NOTE | 2025-05-10 17:35 | SUR.PHASEII ---
Pt given d/c instructions including to go to the ER if she starts bleeding or swelling around sites if not resolved after holding pressure.
== END 2025-05-10 17:43 | disposition home or self-care (01) ==
PROVIDERS: PCP Emergency Medicine; Visit Provider Internal Medicine
PROC: 4A023N8 Measurement of Cardiac Sampling and Pressure, Bilateral, Percutaneous Approach (ICD-10-PCS; CPT 93453; principal; 2025-05-10 08:30)
DX: Z01.810 Encounter for preprocedural cardiovascular examination (principal); Q23.81 Bicuspid aortic valve; I25.10 Atherosclerotic heart disease of native coronary artery without angina pectoris
CPT/HCPCS: 36415; 80048; 85025; 93460; C1769; C1887; C1894; J1644; J2003; J2250; J2305; J7030; J7040

== ENCOUNTER 2025-05-17 10:48 | Outpatient (CLI) | payer OTHER, SELFPAY ==
--- OUTSIDE RECORDS SUMMARY | 2025-05-17 10:53 | XMS_ITS | Continuity of Care Document ---
Author Organization [facility] Address [address] [place] [address] [place] [address] Phone Care Team Providers Care Rubber Splicer Name Role Phone Taco Gavin MD Unavailable [...] for anxiety, avoid driving or operate machines albuterol sulfate [...] Copied on Encounter OFFICE/OUTPA TIENT VISIT, EST [facility], [address], [place], [address], [place] tel:[phone] [facility] pain (chief complaint) anxiety1 (chief complaint) (chief complaint) FibromyalgiaNonrheu matic aortic (valve) stenosisGeneralized Anxiety DisorderEncounter for screening for malignant neoplasm of colon 5 Romaine España. [address], [place], [address] , [place]. tel:[phone] OFFICE/OUTPA TIENT VISIT, [facility] [place], [address], [place], [place], [address], [place] tel:[phone] [facility] pain (chief complaint) anxiety1 (chief complaint) aortic stenosis1 (chief complaint) ear pain1 (chief complaint) FibromyalgiaGeneral ized Anxiety DisorderNonrheumati c aortic (valve) stenosisDiffuse otitis externa, right ear [place]- 5 Gavin Taco. [address], [place], [place], [address] , [place]. [phone] OFFICE/OUTPA TIENT VISIT, [facility] [place], [address], [place], [place], [address], [place] tel:[phone] [facility] pain (chief complaint) anxiety1 (chief complaint) sob1 (chief complaint) DM (chief complaint) Nonrheumatic aortic (valve) stenosisGeneralized Anxiety DisorderType 2 diabetes mellitus without complicationsFibrom yalgia 5 Gavin Taco. [address], [place], [place], [address] , [place]. [phone] OFFICE/OUTPA TIENT VISIT, [facility] [place], [address], [place], [place], [address], [place] tel:[phone] [facility] DM (chief complaint) anxiety1 (chief complaint) pain (chief complaint) sob (chief complaint) FibromyalgiaGeneral ized Anxiety DisorderType 2 diabetes mellitus without complicationsShortn ess of breathCardiac murmurMixed incontinence Jan-0 5 Gavin Taco. [address], [place], [place], [address] , [place]. [phone] OFFICE/OUTPA TIENT VISIT, [facility] [place], [address], [place], [place], [address], [place] tel:[phone] [facility] DM (chief complaint) HLP (chief complaint) LFT (chief complaint) HH (chief complaint) Type 2 diabetes mellitus without complicationsFibrom yalgiaGeneralized Anxiety DisorderMixed hyperlipidemiaHashi pradeep's thyroiditisFatty liverSecondary polycythemia 5 Romaine Gudino [address], [place], [place], [address] , [place]. tel:[phone] OFFICE/OUTPA TIENT VISIT, [facility] [place], [address] [place], [address], [place] [phone] [facility] anxiety1 (chief complaint) pain (chief complaint) OAB (chief complaint) DM (chief complaint) weight loss1 (chief complaint) Type 2 diabetes mellitus without complicationsFibrom yalgiaOveractive bladderGeneralized Anxiety DisorderAbnormal weight loss 5 Romaine Gudino [address], [place], [place], [address] , [place]. tel:[phone] OFFICE/OUTPA TIENT VISIT, [facility] [place], [address] [place], [address], [place] tel:[phone] [facility] COVID1 (chief complaint) Viral infection 5 Romaine Gudino [address], [place], [place], [address] , [place]. tel:[phone] OFFICE/OUTPA TIENT VISIT, [facility] [place], [address] [place], [address], [place] tel:[phone] [facility] anxiety1 (chief complaint) pain (chief complaint) DM (chief complaint) FibromyalgiaGeneral ized Anxiety DisorderType 2 diabetes mellitus without complicationsEncoun ter for oth screening for malignant neoplasm of breast 5 Romaine España. [address], [place], [place], [address] , [place]. tel:[phone] OFFICE/OUTPA TIENT VISIT, [facility] [place], [address] [place], [address], [place] tel:[phone] [facility] anxiety1 (chief complaint) DM (chief complaint) pain (chief complaint) OAB (chief complaint) Generalized Anxiety DisorderOveractive bladderFibromyalgia Type 2 diabetes mellitus without complications 4 Romaine España. [address], [place], [place], [address] , [place]. tel:[phone] OFFICE/OUTPA TIENT VISIT, [facility] [place], [address], [place], [place], [address], [place] tel:[phone] [facility] anxiety1 (chief complaint) pain (chief complaint) dyspnea1 (chief complaint) Generalized Anxiety DisorderFibromyalgi aDyspneaChest pain Aug- 4 Romaine España. [address], [place], [place], [address] , [place]. tel:[phone] OFFICE/OUTPA TIENT VISIT, [facility] [place], [address], [place], [place], [address], [place] tel:[phone] [facility] anxiety1 (chief complaint) fibromyalg ia1 (chief complaint) FibromyalgiaGeneral ized Anxiety Disorder Jul- 4 Romaine España. [address], [place], [place], [address] , [place]. tel:[phone] OFFICE/OUTPA TIENT VISIT, [facility] [place], [address], [place], [place], [address], [place] tel:[phone] [facility] anxiety1 (chief complaint) pain (chief complaint) OAB1 (chief complaint) chest pain1 (chief complaint) DM (chief complaint) DyspneaChest painOveractive bladderGeneralized Anxiety DisorderFibromyalgi aType 2 diabetes mellitus without complications 4 Romaine España. [address], [place], [place], [address] , [place]. tel:[phone] OFFICE/OUTPA TIENT VISIT, [facility] [place], [address], [place], [place], [address], [place] tel:[phone] [facility] pain (chief complaint) anxiety1 (chief complaint) DM (chief complaint) FibromyalgiaGeneral ized Anxiety DisorderType 2 diabetes mellitus without complicationsCardia c murmurOther specified disorder of bone density 4 Romaine España. [address], [place], [place], [address] , [place]. tel:[phone] OFFICE/OUTPA TIENT VISIT, [facility] [place], [address], [place], [place], [address], [place] tel:[phone] [facility] DM (chief complaint) HTN (chief complaint) HLP (chief complaint) pain (chief complaint) anxiety1 (chief complaint) Generalized Anxiety DisorderFibromyalgi aEssential (primary) hypertensionType 2 diabetes mellitus without complicationsMixed hyperlipidemiaHashi pradeep's thyroiditis 4 Romaine Gudino [address], [place], [place], [address] , [place]. tel: [phone] [facility], [address], [place], [place], [address], [place] tel:[phone] [facility] No Information 4 Romaine España. [address], [place], [place], [address] , [place]. tel:[phone] OFFICE/OUTPA TIENT VISIT, [facility] [place], [address], [place], [place], [address], [place] tel:[phone] [facility] pain (chief complaint) anxiety1 (chief complaint) DM (chief complaint) HTN (chief complaint) Type 2 diabetes mellitus without complicationsEssent ial (primary) hypertensionFibromy algiaGeneralized Anxiety DisorderEncounter for screening for malignant neoplasm of colon 4 Romaine España. [address], [place], [place], [address] , [place]. tel:[phone] OFFICE/OUTPA TIENT VISIT, [facility] [place], [address], [place], [place], [address], [place] tel:[phone] [facility] DM (chief complaint) HLP (chief complaint) liver1 (chief complaint) polycythem ia1 (chief complaint) Fatty liverMixed hyperlipidemiaType 2 diabetes mellitus without complicationsSecond marcia polycythemiaHypothy roidism 4 Romaine España. [address], [place], [place], [address] , [place]. tel:[phone] OFFICE/OUTPA TIENT VISIT, [facility] [place], [address], [place], [place], [address], [place] tel:[phone] [facility] DM (chief complaint) HLP (chief complaint) thyroid1 (chief complaint) pain (chief complaint) anxiety1 (chief complaint) FibromyalgiaMixed hyperlipidemiaType 2 diabetes mellitus without complicationsHypoth yroidismGeneralized Anxiety DisorderLiver diseaseOther specified disorder of bone density 4 Romaine España. [address], [place], [place], [address] , [place]. tel:[phone] OFFICE/OUTPA TIENT VISIT, [facility] [place], [address], [place], [place], [address], [place] tel:[phone] [facility] DM (chief complaint) HLP (chief complaint) back pain1 (chief complaint) FibromyalgiaMixed hyperlipidemiaType 2 diabetes mellitus without complications 4 Romaine España. [address], [place], [place], [address] , [place]. tel:[phone] OFFICE/OUTPA TIENT VISIT, [facility] [place], [address], [place], [place], [address], [place] tel:[phone] [facility] liver1 (chief complaint) HLP (chief complaint) thyroid1 (chief complaint) DM (chief complaint) back pain1 (chief complaint) Fatty liverMixed hyperlipidemiaType 2 diabetes mellitus without complicationsHypoth yroidismFibromyalgi a 4 Romaine España. [address], [place], [place], [address] , [place]. tel:[phone] OFFICE/OUTPA TIENT VISIT, [facility] [place], [address], [place], [place], [address], [place] tel:[phone] [facility] HLP (chief complaint) DM (chief complaint) OAB (chief complaint) anxiety1 (chief complaint) fibromyalg ia1 (chief complaint) FibromyalgiaMixed hyperlipidemiaType 2 diabetes mellitus without complicationsGenera lized Anxiety DisorderOveractive bladder 4 Romaine España. [address] [place], [address] , [place]. tel:[phone] Family History Family Member Type Diagnosis Age At Onset Father Problem of fire accident Mother Problem Coronary artery disease (Cau se Of ) 75 Brother Problem of neck and throat CA 6 4 Sister Problem Stroke (Cause Of ) 64 Payers Payer name Insurance type Covered green party ID Jordi mejiajanusz(s) [facility] [id number] Social History Type Description Quantity Date Captured [...] Referred To: Margarito Retana [address] [place] [address], [phone] [phone] Ordered: Referrals: Margarito Retana. Evaluate and treat ordered Referral Ordered: Kannan Mace -[facility] : Internal Medicine (related to Type 2 diabetes mellitus without complications) ordered Referral Referred To: Kannan Mace [address], [phone] Ordered: Referrals: [facility]opathic [facility] Osteopathic Physicians : [...] treat ordered Referral Referred To: MANUEL ZELAYA [facility] [address], [phone] Ordered: Referrals: Allopathic & Osteopathic Physicians : [...] NONA and cardiac cath fist before surgery pain Pt has chronic l ow back [...] test soon Pt is on toprol 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 Pt also has fibromyalgia HLP Pt has not picke d up crestor yet. It needs to be approved which is done. Pt will vegetable picker crestor today DM Pt is on [...] Mental Status Date Cognitive Assessment Orientation - Vaughan ed to time, place, person, situation.
--- OUTSIDE RECORDS SUMMARY | 2025-05-17 10:53 | XMS_ITS | Clinical Summary ---
Author Organization [facility] Address [address], [address] [address] Phone Care Team Providers Care Chiropractic Practice Manager Name Role Phone Aaron Hopkins DO Unavailable [phone] Jenaro Kevin MD Primary Care Provider [phone] Medications polyethylene glycol (MIRALAX) Powder Use entire 255g bottle with 64oz of clear liquid as directed for colonoscopy prep. 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
[2025-05-17 11:34] LABS: Alanine Aminotransferase 41 U/L (6-35); Albumin Level 4.1 g/dL (3.5-5.1); Alkaline Phosphatase 145 U/L (38-126); Anion Gap 5 mmol/L (4-12); Aspartate Amino Transferase 40 U/L (14-36); Bilirubin,Total 0.8 mg/dL (0.2-1.3); Blood Urea Nitrogen 8 mg/dL (7-17); Calcium 9.4 mg/dL (8.4-10.2); Carbon Dioxide 26 mmol/L (22-30); Chloride 101 mmol/L (98-107); Cholesterol 167 mg/dL (0-200); Estimated Glomerular Filt Rate > 60; Glucose 310 mg/dL (65-110); HDL Direct 54 mg/dL; Potassium 4.3 mmol/L (3.4-5.0); Sodium 132 mmol/L (137-145); Total Protein 7.7 g/dL (6.3-8.2); Triglycerides 134 mg/dL (<150)
== END 2025-05-17 10:49 | disposition home or self-care (01) ==
PROVIDERS: PCP Emergency Medicine; Visit Provider Internal Medicine Cardiovascular Disease
DX: E78.5 Hyperlipidemia, unspecified (principal)
CPT/HCPCS: 36415; 80053; 80061

== ENCOUNTER 2025-07-12 14:20 | Outpatient (RCR) | payer OTHER, SELFPAY | END 2025-10-01 13:50 | disposition home or self-care (01) | LOC: ANHDMC 14:20 | PROVIDERS: PCP Emergency Medicine; Visit Provider Internal Medicine | DX: E11.65 Type 2 diabetes mellitus with hyperglycemia (principal); Z71.89 Other specified counseling; Z71.3 Dietary counseling and surveillance | CPT/HCPCS: G0108 ==